=== PATIENT | male | born 1950 | race Caucasian/White ===

== ENCOUNTER 2019-07-30 15:53 | Observation (INO) | payer MEDICARE, MEDICAID, SELFPAY ==
--- NOTE | ~2019-07-30 | XR_ITS ---
XR chest 2V 07/30/2019 17:15 Indication: Cough. Possible pneumonia. Procedure: 2 view chest Comparison: Comparison to multiple prior studies sequentially, with oldest reviewed study dated 03/20. Findings: There is left lower lobe airspace disease. Cardiomegaly. Portacatheter tip in the SVC. Stat us post median sternotomy. Impression: 1: Left lower lobe airspace disease may represent atelectasis, pneumonia and/or scarring. Reviewed, dictated and finalized at location A. Impression: 1: Left lower lobe airspace disease may represent atelectasis, pneumonia and/or scarring.
--- NOTE | ~2019-07-30 | XR_ITS ---
XR chest 2V DATE: 08/02/2019 10:15 INDICATION: Pneumonia TECHNIQUE: AP and lateral views COMPARISON: 08/02/2019 2 view chest 07/30/2019 2 view chest FINDINGS: Status post sternotomy. Left Amina Cath tip overlies superior vena cava. Heart size is wi thin normal range. No pulmonary vascular congestion or pleural effusion or pneumothorax. There is m ild infiltrate, atelectasis and/or scarring at the lower lungs. Aortic calcification. Diffuse osteopenia. IMPRESSION: Mild infiltrate, atelectasis and/or scarring at both lower lung zones, not significantly changed since 07/30/2019 Reviewed, dictated and finalized at location B. IMPRESSION: Mild infiltrate, atelectasis and/or scarring at both lower lung zon es, not significantly changed since 07/30/2019
[2019-07-30 15:50] VITALS: PULSE 88; RESP 23; TEMP 36.3; O2SAT 98
--- NOTE | 2019-07-30 15:56 | ECG_ITS ---
Measurements Intervals [place] Rate: 88 P: MA: 0 QRS: 28 QRSD: 94 T: 35 QT: 337 QTc: 409 Interpretive Statements ATRIAL FLUTTER/TACHYCARDIA EARLY PRECORDIAL R/S TRANSITION ABNORMAL ECG Electronically Signed On 07-30-2019 17:25:14 CDT by Shubham Angelo D.O.
[2019-07-30 16:22] LABS: Hematocrit 30.9 % (42.0-52.0); Hemoglobin 10.3 g/dL (14.0-18.0); Mean Corpuscular HGB Conc 33.3 g/dl (32-36); Mean Corpuscular Hemoglobin 30.6 pg (26-34); Mean Corpuscular Volume 91.7 fl (80-100); Mean Platelet Volume 10.4 fl (7.4-10.4); Platelet Count Result 145 k/mm3 (150-375); Red Blood Count 3.37 M/mm3 (4.6-6.20); Red Cell Distribution Width 15.8 % (11.5-14.5); White Blood Count 4.2 K/mm3 (4.5-10.0)
[2019-07-30] MEDS: IPRATROPIUM BR 0.02% INH SOLN 0.5 MG/2.5 ML VIAL INHALATION (16:23)
[2019-07-30] MEDS: ALBUTEROL SULFATE NEB 2.5 MG/0.5 ML INH 5 MG INHALATION (16:23)
[2019-07-30 16:24] VITALS: PULSE 95; RESP 20
--- NOTE | 2019-07-30 16:28 | ED.SOB ---
HPI - SOB/Dyspnea General Chief Complaint: Shortness of Breath/Dyspnea Stated Complaint: sob/pneumonia Time Seen by Provider: 07/30/19 15:59 Source: patient Mode of arrival: EMS Limitations: no limitations History of Present Illness HPI Narrative: A 69 y/o male pt presents to the ED, via EMS from [facility], with c/o pneumonia that was found on a CXR that was done at his nursing facility last night. He states that one of his lab counts are low d/t his chemo tx but he is unsure which one. Pt notes having chest heaviness, cough, night sweats, and chills, but denies SOB, CP, fever, or N/V/D. He states that his cough began last week, but states that it is not worsening or improving. Pt notes having a hx of Bladder CA that he is currently receiving chemotherapy for and states that his oncologist is Dr. Renner. He reports last receiving chemotherapy on 07/27/2019. Pt notes being on anticoagulation therapy, but is unsure what he takes. elicited complaint: cough Onset (ago): week(s) (1) Context: other (CXR done last night at nursing facility shows pneumonia) Timing: other (not worsened or improved) Associated symptoms: cough and other (chest heaviness, night sweats, chills) Related Data Home Medications Medication Instructions Recorded Confirmed acetaminophen 650 mg PO Q6H PRN 07/30/19 albuterol sulfate 2.5 mg INHALATION Q4H PRN 07/30/19 albuterol sulfate [Ventolin HFA] INHALATION 07/30/19 alum-mag hydroxide-simeth [Maalox 10 ml PO QID PRN 07/30/19 Advanced] amitriptyline 50 mg PO DAILY 07/30/19 aspirin [Aspir-Low] 81 mg PO DAILY 07/30/19 atorvastatin 20 mg PO HS 07/30/19 benzonatate 100 mg PO TID PRN 07/30/19 budesonide-formoterol [Symbicort] 2 puff INHALATION Q12H 07/30/19 buspirone 5 mg PO TID 07/30/19 carvedilol 25 mg PO Q12H 07/30/19 cyclobenzaprine 10 mg PO TID PRN 07/30/19 duloxetine 60 mg PO DAILY 07/30/19 fentanyl 1 patch TRANSDERMAL Q72H 07/30/19 ferrous sulfate 325 mg PO EVERY OTHER DAY 07/30/19 furosemide 40 mg PO DAILY 07/30/19 xwcywkfduus-brdswxhxa-vcxzjjac 25 mcg INHALATION BID 07/30/19 [[place] Magnair Starter] hydrocodone-acetaminophen [[place]] 1 tablet PO Q6H PRN 07/30/19 isosorbide mononitrate 120 mg PO DAILY 07/30/19 levofloxacin 500 mg PO DAILY 07/30/19 loratadine mg 07/30/19 nitroglycerin 0.4 mg SUBLINGUAL ONCE 07/30/19 oxybutynin chloride 5 mg PO DAILY 07/30/19 pantoprazole 40 mg PO BID 07/30/19 polyethylene glycol 3350 17 g PO DAILY 07/30/19 pramipexole 0.5 mg PO HS 07/30/19 prazosin 5 mg PO HS 07/30/19 prochlorperazine maleate 10 mg PO Q6H PRN 07/30/19 [Compazine] ranolazine [Ranexa] 500 mg PO Q12H 07/30/19 rivaroxaban [Xarelto] 20 mg PO QPM 07/30/19 saxagliptin [Onglyza] 5 mg PO DAILY 07/30/19 sodium chloride-aloe vera [[place] 1 spray INTRANASAL Q1-2H PRN 07/30/19 Saline Gel] tuberculin PPD [Tubersol] 0.1 ml INTRADERMAL ONCE 07/30/19 Allergies Allergy/AdvReac Type Severity Reaction Status Date / Time No Known Allergies Allergy Verified 07/30/19 16:20 Review of Systems Review of Systems: All systems reviewed & are unremarkable except as noted in HPI and below Constitutional: Constitutional: Reports chills, Reports excessive sweating (at night) and Denies fever(s) Cardiovascular: Cardiovascular: Denies chest pain and Reports other (chest heaviness) Respiratory: Respiratory: Reports cough and Denies dyspnea Gastrointestinal: Gastrointestinal: Denies diarrhea, Denies nausea and Denies vomiting PMF Past Medical History Medical History Hernia History of atrial fibrillation Medical history unknown Surgical History Surgical History Hx of CABG Surgical history unknown Social History Social History Living arrangements: long term Exam Narrative: Exam Narrative: GENERAL: Chronically
[2019-07-30 16:31] VITALS: PULSE 92; RESP 20
[2019-07-30 16:33] LABS: Blood Urea Nitrogen 22 mg/dL (9-20); Calcium 8.8 mg/dL (8.4-10.2); Carbon Dioxide 28 mmol/L (22-30); Chloride 99 mmol/L (98-107); Estimated Glomerular Filt Rate 60; Glucose 110 mg/dL (75-110); Potassium 4.2 mmol/L (3.4-5.0); Sodium 137 mmol/L (137-145)
[2019-07-30 16:59] LABS: Lymphocytes Absolute Manual 0.12 K/mm3 (1.1-4.5); Monocytes Absolute Manual 0.08 K/mm3 (0.1-0.90); Monocytes Percent Manual 2 % (3-9); Neutrophils Percent Manual 95 % (46-73); Total Cells Counted 100
[2019-07-30 17:00] LABS: Tear Drop Cells 1+ (NORMAL)
[2019-07-30 17:45] VITALS: BP 143/83; PULSE 111; RESP 18; O2SAT 100
[2019-07-30] MEDS: ONDANSETRON INJ 4 MG/2 ML VIAL IV PUSH (18:19)
[2019-07-30 18:31] VITALS: BP 138/71; PULSE 74; RESP 18; O2SAT 100
--- NOTE | 2019-07-30 22:35 | PM.IMHP ---
H&P: HPI History of Present Illness Chief complaint: RESPIRATORY INFECTION Narrative: This is a 69 year old male with a history of bladder cancer currently receiving chemotherapy and atrial fibrillation on Xarelto who presented from [facility] secondary to coughing for the past 3 days. The patient's PCP at the [facility] referred home to the hospital to be admitted for possible pneumonia. The patient reports a productive cough of greenish yellow sputum for the past 3 days with associated generalized weakness. He denies any significant shortness of breath, wheezing or fevers, nausea, vomiting, diarrhea, dysuria, hematuria, lower extremity swelling or rectal bleeding. The patient was evaluated in the ER tonight and found to have left lower airspace disease on CXR. ER provider attempted to send the patient back to [facility] but tells me that the PCP there refused to accept the patient as they wanted the patient to be admitted to the hospital for treatment. We have been asked to admit the patient to the hospital for further care. He has no other complaints. Review of Systems Review of Systems: All systems reviewed & are unremarkable except as noted in HPI and below PMFSH Past Medical History Medical History (Updated 07/31/19 @ 06:03 by Dmitry Dickson MD) GERD (gastroesophageal reflux disease) Hernia History of atrial fibrillation Hyperlipidemia Medical history unknown Surgical History Surgical History Hx of CABG Surgical history unknown Social History Social History Years smoked: 60 Smoking status: Current some day smoker Tobacco type: cigarettes Alcohol intake: former Substance use: never Living arrangements: [facility] Gender identity (if verbalized by the patient): Male Spiritual care concerns: No Agree to blood products: Yes Comments Family medical history is reviewed and noncontributory. Meds Home Medications and Allergies Home Medications Medication Instructions Recorded Confirmed Type acetaminophen 650 mg PO Q6H PRN 07/30/19 07/31/19 History albuterol sulfate 2.5 mg INHALATION Q4H PRN 07/30/19 07/31/19 History albuterol sulfate [Ventolin HFA] 2 puff INHALATION Q4H PRN 07/30/19 07/31/19 History alum-mag hydroxide-simeth [Maalox 10 ml PO QID PRN 07/30/19 07/31/19 History Advanced] amitriptyline 50 mg PO HS 07/30/19 07/31/19 History aspirin [Aspir-Low] 81 mg PO DAILY 07/30/19 07/31/19 History atorvastatin 20 mg PO HS 07/30/19 07/31/19 History benzonatate 100 mg PO TID PRN 07/30/19 07/31/19 History budesonide-formoterol [Symbicort] 2 puff INHALATION Q12H 07/30/19 07/31/19 History buspirone 5 mg PO TID 07/30/19 07/31/19 History carvedilol 25 mg PO Q12H 07/30/19 07/31/19 History cyclobenzaprine 10 mg PO TID PRN 07/30/19 07/31/19 History duloxetine 60 mg PO DAILY 07/30/19 07/31/19 History fentanyl 1 patch TRANSDERMAL Q72H 07/30/19 07/31/19 History ferrous sulfate 325 mg PO USEASDIRECTD 07/30/19 07/31/19 History furosemide 40 mg PO DAILY 07/30/19 07/31/19 History pmjohrjnwdd-lomwjotsa-iuszsmvi 25 mcg INHALATION Q12H 07/30/19 07/31/19 History [Enma Orosco Starter] hydrocodone-acetaminophen [[place]] 1 tablet PO Q6H PRN 07/30/19 07/31/19 History isosorbide mononitrate 120 mg PO HS 07/30/19 07/31/19 History levofloxacin 500 mg PO DAILY 07/30/19 07/31/19 History loratadine 10 mg PO DAILY 07/30/19 07/31/19 History nitroglycerin 0.4 mg SUBLINGUAL USEASDIRECTD PRN 07/30/19 07/31/19 History pantoprazole 40 mg PO BID 07/30/19 07/31/19 History polyethylene glycol 3350 17 g PO DAILY 07/30/19 07/31/19 History pramipexole 0.5 mg PO HS 07/30/19 07/31/19 History prazosin 5 mg PO HS 07/30/19 07/31/19 History prochlorperazine maleate 10 mg PO Q6H PRN 07/30/19 07/31/19 History [Compazine] ranolazine [Ranexa] 500 mg PO Q12H 07/30/19 07/31/19 History rivaroxaban [Xarelto] 2
[2019-07-30] MEDS: levoFLOXacin 500 MG/D5W 100 ML 500 MG/100 ML BAG 100 MG IVPB (23:10)
[2019-07-30 23:33] VITALS: BP 130/78; PULSE 88; RESP 20; TEMP 36.6; O2SAT 100
--- NOTE | 2019-07-30 23:55 | ADMGEN ---
This patient, Jaskaran Andrews, was admitted to Medical Room 347-. Patient/family oriented to hospital policies and general routines including ID bracelet, bed and alarms, visiting hours, pain management, procedures, bathroom and other care routines, personal items, smoking policy, room service/diet, and visiting hours. Valuables list has been completed. Information on how to activate the Rapid Response Team has been discussed. Patient/Family are encouraged to report perceived risks to care and to ask questions if they do not understand what they are told or what they should do.
[2019-07-31] VITALS (12 sets, daily range): BP systolic 108–114; BP diastolic 60–65; PULSE 66–93; RESP 16–20; TEMP 36–36.5; O2SAT 94–100; BMI 32.3
[2019-07-31] MEDS: SODIUM CHLORIDE 0.9% IV 1,000 ML 100 ML IV CONT ×3 (00:07→22:10)
--- NOTE | 2019-07-31 03:19 | PCRCNOTE ---
pt not there at time of tx
[2019-07-31 03:30] LABS: Blood Urea Nitrogen 23 mg/dL (9-20); Calcium 8.4 mg/dL (8.4-10.2); Carbon Dioxide 30 mmol/L (22-30); Chloride 101 mmol/L (98-107); Estimated CRCL calculation 64 ml/min; Estimated Glomerular Filt Rate > 60; Glucose 139 mg/dL (75-110); Magnesium 1.9 mg/dL (1.6-2.3); Potassium 3.9 mmol/L (3.4-5.0); Sodium 137 mmol/L (137-145)
[2019-07-31 03:32] LABS: Hemoglobin 10.3 g/dL (14.0-18.0); Immature Granulocyte Absolute 0.09 K/mm3 (0.00-0.031); Immature Granulocyte Percent A 2.7 % (0-0.5); Lymphocytes Absolute Auto 0.16 K/mm3 (0.9-3.2); Lymphocytes Percent Auto 4.7 % (18.3-44.2); Mean Corpuscular HGB Conc 33.2 g/dl (32-36); Mean Corpuscular Hemoglobin 31.1 pg (26-34); Mean Corpuscular Volume 93.7 fl (80-100); Mean Platelet Volume 10.8 fl (7.4-10.4); Monocytes Absolute Auto 0.2 K/mm3 (0.1-0.6); Neutrophils Percent Auto 87.6 % (45.5-73.1); Platelet Count Result 135 k/mm3 (150-375); Red Blood Count 3.31 M/mm3 (4.6-6.20); Red Cell Distribution Width 15.6 % (11.5-14.5); White Blood Count 3.4 K/mm3 (4.5-10.0)
[2019-07-31] MEDS: CYCLOBENZAPRINE HCL 10 MG TABLET PO ×2 (06:13→22:04)
[2019-07-31] MEDS: LORATADINE 10 MG TABLET PO (09:36)
[2019-07-31] MEDS: PANTOPRAZOLE 40 MG TABLET PO ×2 (09:36→16:47)
[2019-07-31] MEDS: RANOLAZINE 500 MG TAB.ER.12H PO ×2 (09:36→22:04)
[2019-07-31] MEDS: DULOXETINE 60 MG CAPSULE.DR PO (09:37)
[2019-07-31] MEDS: ASPIRIN 81 MG ENTERIC TABLET PO (09:37)
[2019-07-31] MEDS: busPIRone HCL 5 MG TABLET PO ×3 (09:37→16:46)
[2019-07-31] MEDS: carvediloL 25 MG TABLET PO ×2 (09:37→22:05)
[2019-07-31] MEDS: FUROSEMIDE 40 MG TABLET PO (09:37)
[2019-07-31] MEDS: FENTANYL 25 MCG/HR PATCH TRANSDERM (09:38)
[2019-07-31] MEDS: polyethylene glycoL 3350 17 GM POWD.PACK PO (09:42)
[2019-07-31] MEDS: ALBUTEROL SULFATE NEB 2.5 MG/0.5 ML INH 5 MG INHALATION ×3 (10:00→19:54)
--- NOTE | 2019-07-31 14:19 | PM.IMPN ---
Progress Note: A&P Assessment and Plan (1) Acute respiratory infection: Code(s): J22 - Unspecified acute lower respiratory infection Status: Acute Assessment and Plan: Mild CAP, continue oral ABX and breathing treatment, hopeful discharge Friday, sputum and blood culture are pending (2) Normocytic anemia: Code(s): D64.9 - Anemia, unspecified Status: Acute Assessment and Plan: Likely anemia of chronic disease. Monitor H/H (3) History of atrial fibrillation: Code(s): Z86.79 - Personal history of other diseases of the circulatory system Status: Chronic Assessment and Plan: Continue Coreg and Xarelto. (4) GERD (gastroesophageal reflux disease): Code(s): K21.9 - Gastro-esophageal reflux disease without esophagitis Status: Chronic Assessment and Plan: Continue PPI therapy. (5) Hyperlipidemia: Code(s): E78.5 - Hyperlipidemia, unspecified Status: Chronic Assessment and Plan: Continue atorvastatin. Subjective Date/time seen: 07/31/19 14:19 Interval history: 69 year old male with a history of bladder cancer currently receiving chemotherapy and atrial fibrillation on Xarelto who presented from [facility] secondary to coughing for the past 3 days. Admitted for pneumonia as per CXR. Admitted last night, continue care. Review of Systems Respiratory: Respiratory: Reports chest congestion, Reports cough, Reports dyspnea and Reports wheezing Exam Const: General: cooperative and no acute distress Nutritional Appearance: well nourished Neck: Neck: normal visual inspection, no lymphadenopathy, supple, negative Brudzinski's sign and no JVD Chest: Chest palpation & inspection: normal inspection of the chest Resp: Effort & Inspection: normal respiratory effort Auscultation: diminished lung sounds Percussion: percussion normal Cardio: Jugular venous distension: no JVD Rate: regular rate Rhythm: regular rhythm Heart sounds: S1 normal heart sound present and S2 normal heart sound present Extrem: Right lower extremity: normal to inspection Left lower extremity: normal to inspection Psych: Appearance: grossly normal Mental Status: mental status grossly normal Affect: normal affect Attitude: cooperative Objective Data Vital Signs Vital Signs: Vital Signs - 24 hr 07/30/19 15:50 07/30/19 16:24 07/30/19 16:31 Temperature 36.3 C L Pulse Rate 88 95 92 Respiratory Rate 23 H 20 20 Blood Pressure Pulse Oximetry 98 07/30/19 17:45 07/30/19 18:31 07/30/19 23:33 Temperature 36.6 C Pulse Rate 111 H 74 88 Respiratory Rate 18 18 20 Blood Pressure 143/83 H 138/71 130/78 Pulse Oximetry 100 100 100 07/31/19 00:07 07/31/19 05:33 07/31/19 09:37 Temperature 36.1 C L 36.3 C L Pulse Rate 66 73 73 Respiratory Rate 18 18 Blood Pressure 114/61 108/63 Pulse Oximetry 100 96 07/31/19 10:03 07/31/19 10:10 07/31/19 13:57 Temperature 36.0 C L Pulse Rate 93 87 72 Respiratory Rate 18 18 16 Blood Pressure 113/60 Pulse Oximetry 96 94 Intake/Output Intake/Output: Intake & Output 07/28/19 07/29/19 07/30/19 07/31/19 23:59 23:59 23:59 23:59 Intake Total 2210 Output Total 950 Balance 1260 Meds/Results Medications: Active Medications Generic Name Dose Route Start Last Admin Trade Name Freq PRN Reason Stop Dose Admin Acetaminophen 650 mg 07/30/19 22:24 Tylenol Tablet PO Q4H PRN Mild Pain (1-3) or Fever Hydrocodone Bitart/Acetaminophen 1 tab 07/30/19 22:24 [place] 5-325 Mg PO Q4H PRN Pain Rated 4-6 Hydrocodone Bitart/Acetaminophen 1 tab 07/31/19 03:12 07/31/19 09:44 [place] 5-325 Mg PO 1 tab Q6H PRN Administration Pain Al Hydrox/Mg Hydrox/Simethicone 10 ml 07/31/19 03:12 Mylanta PO QID PRN Indigestion Albuterol 5 mg 07/31/19 02:00 07/31/19 10:00 Albuterol Sulf Neb 2.5mg/0.5ml INHALATION 5 mg Q6H
[2019-07-31] MEDS: AMITRIPTYLINE HCL 25 MG TABLET 50 MG PO (22:04)
[2019-07-31] MEDS: RIVAROXABAN 20 MG TABLET PO (22:04)
[2019-07-31] MEDS: PRAZOSIN HCL 5 MG CAPSULE PO (22:04)
[2019-07-31] MEDS: ATORVASTATIN 20 MG TABLET PO (22:04)
[2019-07-31] MEDS: ISOSORBIDE MONONITRATE 60 MG TAB.ER.24H 120 MG PO (22:05)
[2019-07-31] MEDS: PRAMIPEXOLE 0.5 MG TABLET PO (22:05)
[2019-08-01] VITALS (15 sets, daily range): BP systolic 120–145; BP diastolic 62–72; PULSE 61–126; RESP 18–20; TEMP 36.1–36.4; O2SAT 95–97
[2019-08-01] MEDS: ALBUTEROL SULFATE NEB 2.5 MG/0.5 ML INH 5 MG INHALATION ×4 (01:11→20:54)
[2019-08-01 06:06] LABS: Hematocrit 29.6 % (42.0-52.0); Hemoglobin 9.5 g/dL (14.0-18.0); Mean Corpuscular HGB Conc 32.1 g/dl (32-36); Mean Corpuscular Hemoglobin 30.7 pg (26-34); Mean Corpuscular Volume 95.8 fl (80-100); Mean Platelet Volume 10.8 fl (7.4-10.4); Platelet Count Result 115 k/mm3 (150-375); Red Blood Count 3.09 M/mm3 (4.6-6.20); Red Cell Distribution Width 15.9 % (11.5-14.5); White Blood Count 3.4 K/mm3 (4.5-10.0)
[2019-08-01 06:26] LABS: Blood Urea Nitrogen 22 mg/dL (9-20); Calcium 8.1 mg/dL (8.4-10.2); Carbon Dioxide 32 mmol/L (22-30); Chloride 103 mmol/L (98-107); Estimated CRCL calculation 64 ml/min; Estimated Glomerular Filt Rate > 60; Glucose 98 mg/dL (75-110); Potassium 4.5 mmol/L (3.4-5.0); Sodium 136 mmol/L (137-145)
[2019-08-01] MEDS: FERROUS SULFATE 324 MG TABLET PO (08:59)
[2019-08-01] MEDS: PANTOPRAZOLE 40 MG TABLET PO ×2 (08:59→17:35)
[2019-08-01] MEDS: polyethylene glycoL 3350 17 GM POWD.PACK PO (09:00)
[2019-08-01] MEDS: busPIRone HCL 5 MG TABLET PO ×3 (09:00→17:35)
[2019-08-01] MEDS: carvediloL 25 MG TABLET PO ×2 (09:01→20:41)
[2019-08-01] MEDS: DULOXETINE 60 MG CAPSULE.DR PO (09:01)
[2019-08-01] MEDS: ASPIRIN 81 MG ENTERIC TABLET PO (09:01)
[2019-08-01] MEDS: RANOLAZINE 500 MG TAB.ER.12H PO ×2 (09:01→20:41)
[2019-08-01] MEDS: LORATADINE 10 MG TABLET PO (09:01)
[2019-08-01] MEDS: FUROSEMIDE 40 MG TABLET PO (09:02)
[2019-08-01] MEDS: SODIUM CHLORIDE 0.9% IV 1,000 ML 100 ML IV CONT ×2 (11:14→20:48)
--- NOTE | 2019-08-01 15:54 | PM.IMPN ---
Progress Note: A&P Assessment and Plan (1) Acute respiratory infection: Code(s): J22 - Unspecified acute lower respiratory infection Status: Acute Assessment and Plan: Mild CAP, continue oral ABX and breathing treatment, hopeful discharge Friday, sputum and blood culture are pending 69 year old male with a history of bladder cancer currently receiving chemotherapy and atrial fibrillation on Xarelto who presented from [facility] secondary to coughing for the past 3 days. Admitted for pneumonia as per CXR. 07/29, today patient is little better cough not as persistent denies any fever or chills, will repeat chest x-ray tomorrow and further recommendation to follow (2) Normocytic anemia: Code(s): D64.9 - Anemia, unspecified Status: Acute Assessment and Plan: Likely anemia of chronic disease. Monitor H/H (3) History of atrial fibrillation: Code(s): Z86.79 - Personal history of other diseases of the circulatory system Status: Chronic Assessment and Plan: Continue Coreg and Xarelto. (4) GERD (gastroesophageal reflux disease): Code(s): K21.9 - Gastro-esophageal reflux disease without esophagitis Status: Chronic Assessment and Plan: Continue PPI therapy. (5) Hyperlipidemia: Code(s): E78.5 - Hyperlipidemia, unspecified Status: Chronic Assessment and Plan: Continue atorvastatin. Time Spent With Patient Time with patient: 15 - 25 minutes Subjective Date/time seen: 08/01/19 15:54 Interval history: 69 year old male with a history of bladder cancer currently receiving chemotherapy and atrial fibrillation on Xarelto who presented from [facility] secondary to coughing for the past 3 days. Admitted for pneumonia as per CXR. 07/29, today patient is little better cough not as persistent denies any fever or chills Review of Systems Review of Systems: All systems reviewed & are unremarkable except as noted in HPI and below Exam Narrative: Exam Narrative: Moderately obese Const: General: cooperative, comfortable and no acute distress Nutritional Appearance: well nourished HENMT: Head: normal to inspection and other (Tongue normal - no lacerations) Mouth: Yes Normal oral and palatal mucosa present Eyes: General: appearance normal, both eyes and all related structures Sclera: sclerae normal Neck: Neck: normal visual inspection, no lymphadenopathy, supple and negative Brudzinski's sign Chest: Chest palpation & inspection: normal inspection of the chest Resp: Percussion: percussion normal Other: Bilateral poor entry with rhonchi Cardio: Jugular venous distension: no JVD Rate: regular rate Rhythm: regular rhythm Heart sounds: S1 normal heart sound present and S2 normal heart sound present GI: Inspection: normal to inspection Auscultation: normal bowel sounds Neuro: Speech: normal speech Motor exam (neuro): No tremor noted and No asterixis Sensory Exam: normal sensation; No Sensory deficit (Neuro) Deep tendon reflexes (DTR's): Right brachioradialis reflex intensity grade: 2+, Left brachioradialis reflex intensity grade: 2+, Right patellar reflex intensity grade: 2+ and Left patellar reflex intensity grade: 2+ Extrem: Right lower extremity: normal to inspection Left lower extremity: normal to inspection Psych: Appearance: grossly normal Mental Status: mental status grossly normal Affect: normal affect Attitude: cooperative Objective Data Vital Signs Vital Signs: Vital Signs - 24 hr 07/31/19 16:03 07/31/19 16:07 07/31/19 19:55 Temperature Pulse Rate 73 70 67 Respiratory Rate 20 20 18 Blood Pressure Pulse Oximetry 07/31/19 20:07 07/31/19 21:50 07/31/19 22:05 Temperature 97.7 F Pulse Rate 77 74 74 Respiratory Rate 18 16 Blood Pressure 114/65 Pulse Oximetry 94 08/01/19 01:11 08/01/19 01:20 08/01/19 05:38 Temperature 97.6 F Pulse Rate 61 71 62 Re
[2019-08-01] MEDS: CYCLOBENZAPRINE HCL 10 MG TABLET PO ×2 (17:35→20:45)
[2019-08-01] MEDS: AMITRIPTYLINE HCL 25 MG TABLET 50 MG PO (20:41)
[2019-08-01] MEDS: RIVAROXABAN 20 MG TABLET PO (20:41)
[2019-08-01] MEDS: ATORVASTATIN 20 MG TABLET PO (20:41)
[2019-08-01] MEDS: PRAMIPEXOLE 0.5 MG TABLET PO (20:41)
[2019-08-01] MEDS: PRAZOSIN HCL 5 MG CAPSULE PO (20:41)
[2019-08-01] MEDS: ISOSORBIDE MONONITRATE 60 MG TAB.ER.24H 120 MG PO (20:42)
[2019-08-02] VITALS (7 sets, daily range): BP systolic 125; BP diastolic 69; PULSE 80–104; RESP 18; TEMP 36.1; O2SAT 94–97
[2019-08-02] MEDS: ALBUTEROL SULFATE NEB 2.5 MG/0.5 ML INH 5 MG INHALATION ×2 (02:03→08:04)
[2019-08-02] MEDS: SODIUM CHLORIDE 0.9% IV 1,000 ML 100 ML IV CONT (07:17)
[2019-08-02] MEDS: polyethylene glycoL 3350 17 GM POWD.PACK PO (08:42)
[2019-08-02] MEDS: busPIRone HCL 5 MG TABLET PO ×2 (08:42→12:06)
[2019-08-02] MEDS: RANOLAZINE 500 MG TAB.ER.12H PO (08:42)
[2019-08-02] MEDS: PANTOPRAZOLE 40 MG TABLET PO (08:42)
[2019-08-02] MEDS: ASPIRIN 81 MG ENTERIC TABLET PO (08:42)
[2019-08-02] MEDS: LORATADINE 10 MG TABLET PO (08:42)
[2019-08-02] MEDS: carvediloL 25 MG TABLET PO (08:43)
[2019-08-02] MEDS: DULOXETINE 60 MG CAPSULE.DR PO (08:43)
[2019-08-02] MEDS: FUROSEMIDE 40 MG TABLET PO (08:43)
[2019-08-02] MEDS: CYCLOBENZAPRINE HCL 10 MG TABLET PO (08:47)
[2019-08-02 10:43] LABS: Hematocrit 29.2 % (42.0-52.0); Hemoglobin 9.7 g/dL (14.0-18.0); Mean Corpuscular HGB Conc 33.2 g/dl (32-36); Mean Corpuscular Hemoglobin 31.2 pg (26-34); Mean Corpuscular Volume 93.9 fl (80-100); Mean Platelet Volume 10.9 fl (7.4-10.4); Platelet Count Result 113 k/mm3 (150-375); Red Blood Count 3.11 M/mm3 (4.6-6.20); Red Cell Distribution Width 15.6 % (11.5-14.5); White Blood Count 2.8 K/mm3 (4.5-10.0)
[2019-08-02 10:56] LABS: Magnesium 1.7 mg/dL (1.6-2.3)
[2019-08-02 10:58] LABS: Blood Urea Nitrogen 19 mg/dL (9-20); Calcium 8.4 mg/dL (8.4-10.2); Carbon Dioxide 28 mmol/L (22-30); Chloride 101 mmol/L (98-107); Estimated CRCL calculation 70 ml/min; Estimated Glomerular Filt Rate > 60; Glucose 130 mg/dL (75-110); Potassium 4.4 mmol/L (3.4-5.0); Sodium 135 mmol/L (137-145)
--- NOTE | 2019-08-02 12:25 | PM.DS ---
DS: Diagnosis Admitting Diagnosis Admitting Diagnosis: Unspecified acute lower respiratory infection Discharge Diagnosis (1) Acute respiratory infection: Code(s): J22 - Unspecified acute lower respiratory infection Status: Acute Assessment and Plan: Mild CAP, continue oral ABX and breathing treatment, hopeful discharge Friday, sputum and blood culture are pending 69 year old male with a history of bladder cancer currently receiving chemotherapy and atrial fibrillation on Xarelto who presented from [facility] secondary to coughing for the past 3 days. Admitted for pneumonia as per CXR. 07/29, today patient is little better cough not as persistent denies any fever or chills, will repeat chest x-ray tomorrow and further recommendation to follow (2) Normocytic anemia: Code(s): D64.9 - Anemia, unspecified Status: Acute Assessment and Plan: Likely anemia of chronic disease. Monitor H/H (3) History of atrial fibrillation: Code(s): Z86.79 - Personal history of other diseases of the circulatory system Status: Chronic Assessment and Plan: Continue Coreg and Xarelto. (4) GERD (gastroesophageal reflux disease): Code(s): K21.9 - Gastro-esophageal reflux disease without esophagitis Status: Chronic Assessment and Plan: Continue PPI therapy. (5) Hyperlipidemia: Code(s): E78.5 - Hyperlipidemia, unspecified Status: Chronic Assessment and Plan: Continue atorvastatin. DS: Summary Hospital Course Reason for hospitalization: This is a 69 year old male with a history of bladder cancer currently receiving chemotherapy and atrial fibrillation on Xarelto who presented from [facility] secondary to coughing for the past 3 days. [facility] to the hospital to be admitted for possible pneumonia. The patient reports a productive cough of greenish yellow sputum for the past 3 days with associated generalized weakness. He denies any significant shortness of breath, wheezing or fevers, nausea, vomiting, diarrhea, dysuria, hematuria, lower extremity swelling or rectal bleeding. The patient was evaluated in the ER tonight and found to have left lower airspace disease on CXR. ER provider attempted to send the patient back to [facility] but tells me that the PCP there refused to accept the patient as they wanted the patient to be admitted to the hospital for treatment. We have been asked to admit the patient to the hospital for further care. He has no other complaints. R Hospital Course: Mild CAP, continue oral ABX and breathing treatment, hopeful discharge Friday, sputum and blood culture are pending 69 year old male with a history of bladder cancer currently receiving chemotherapy and atrial fibrillation on Xarelto who presented from [facility] secondary to coughing for the past 3 days. Admitted for pneumonia as per CXR. 07/29, today patient is little better cough not as persistent denies any fever or chills, will repeat chest x-ray tomorrow and further recommendation to follow, patient chest xray is stable, he clinically stable, will discharge patient today. Status at Discharge Functional status at discharge: uses cane/walker Overall status at discharge: patient is back to baseline Time Spent with Patient Time attestation: Total time spent providing and/or coordinating discharge services: Patient was seen and examined at the time of the discharge Condition at discharge is stable Code status: Full code. Time spent preparing discharge summary, discharge medications, discussing discharge planning with spring encaser and patient is 35 minutes. Time spent: Greater than 30 minutes Exam Const: General: comfortable and no acute distress HENMT: General nose exam: Normal nares present Mouth: Yes moist mucous membranes Eyes: General: appearance normal, both ey
--- NOTE | 2019-08-02 18:36 | CONS_ITS ---
DATE OF CONSULTATION: 08/02/2019 REASON FOR CONSULTATION: Locally advanced urothelial carcinoma. 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 He subsequently diagnosed with metastatic disease with evidence of pulmonary metastasis and left rectus sheath metastasis. He is currently on chemotherapy with Taxol and radiation therapy treatment. He has 1 more treatment with Taxol left. His last chemotherapy was on July 28. He came into the hospital with complaint of productive cough with yellowish greenish sputum for the last 3 days duration along with generalized weakness. He denies any significant shortness of breath, fevers, or chills. Chest x-ray was performed that showed left lower lobe airspace opacities. I discussed this case with the patient's primary care physician and decided to admit the patient given the fact that he has immunocompromised status due to ongoing chemotherapy and will better be treated as an outpatient. REVIEW OF SYSTEMS: A 12-point review of system was reviewed and as per HPI, otherwise negative. PAST MEDICAL HISTORY: Metastatic high-grade urothelial carcinoma, GERD, hernia, atrial fibrillation, and hyperlipidemia. PAST SURGICAL HISTORY: Coronary artery bypass grafting. SOCIAL HISTORY: History of smoking and continues to smoke. The patient lives in [facility]. HOME MEDICATIONS: Reviewed. ALLERGIES: REVIEWED. PHYSICAL EXAMINATION: GENERAL: This patient is a well-developed, well-nourished, elderly male, in no apparent distress. Alert and oriented. VITAL SIGNS: Per nursing note. HEENT: Normocephalic, atraumatic. Clear oropharynx. LUNGS: Clear to auscultation bilaterally. CARDIOVASCULAR: Regular rate and rhythm. No murmur. ABDOMEN: Soft, nontender, nondistended. Bowel sounds are positive in all 4 quadrants. No hepatosplenomegaly. EXTREMITIES: No edema. NEURO EXAM: Grossly intact. LABORATORY DATA: WBC 2.8, hemoglobin 9.7, platelet 113,000. ASSESSMENT AND PLAN: 1. Left lower lobe pneumonia. The patient is already feeling better after receiving IV antibiotic treatment. He is breathing better and he remains afebrile. He will be discharged home on Levaquin as an outpatient. 2. Metastatic high-grade urothelial carcinoma. The patient is on radiation therapy and weekly chemotherapy treatment. He has 1 more chemotherapy with Taxol left that he will receive after recovery from this acute infection. The patient has appointment with me to see as an outpatient for continuation of chemotherapy. 3. Pancytopenia. This is secondary to chemotherapy. He does not need any blood products at this time. He does not need any growth factor. He is afebrile. 4. Atrial fibrillation. The patient can continue Xarelto. He has no bleeding. Nosebleed has stopped. I have answered all the questions to the patient's satisfaction. NANCY Karly BARTON M.D. SORTING MACHINE OPERATOR SORTING MACHINE OPERATOR D I MT: Earl
[2019-08-03 15:58] LABS: Legionella pneumophila Ag Ur Not Detected (Not Detected)
[2019-08-04 00:17] LABS: Pneumococcal Antigen Urine Not Detected (Not Detected)
== END 2019-08-02 13:40 ==
LOC: ANHED 20:39 → ANH3MED 22:53
PROVIDERS: Family Medicine; Admitting Provider Family Medicine; Emergency Provider Emergency Medicine; Visit Provider Family Medicine
DX: J18.9 Pneumonia, unspecified organism (principal); I48.91 Unspecified atrial fibrillation; K21.9 Gastro-esophageal reflux disease without esophagitis; E78.5 Hyperlipidemia, unspecified; F17.210 Nicotine dependence, cigarettes, uncomplicated; D61.810 Antineoplastic chemotherapy induced pancytopenia; T45.1X5A Adverse effect of antineoplastic and immunosuppressive drugs, initial encounter; C66.9 Malignant neoplasm of unspecified ureter; C78.00 Secondary malignant neoplasm of unspecified lung; C79.89 Secondary malignant neoplasm of other specified sites; Z79.01 Long term (current) use of anticoagulants; Z79.82 Long term (current) use of aspirin; Z79.899 Other long term (current) drug therapy
CPT/HCPCS: 36415; 71046; 80048; 83735; 85025; 85027; 87040; 87070; 87081; 87205; 87449; 87804; 87899; 93005; 94640; 96361; 96365; 96375; 97110; 97161; 97165; 97535; 99285; A9270; G0378; J1956; J2405; J7030

== ENCOUNTER 2019-09-28 10:49 | Outpatient (CLI) | payer MEDICARE, MEDICAID, SELFPAY ==
--- NOTE | ~2019-09-28 | PE_ITS ---
EXAMINATION: PET skull to mid thigh DATE: 09/28/2019 13:14 INDICATION: Malignant neoplasm of the right ureter TECHNIQUE: Blood glucose level was 113 mg/dL. 8.970 mCi of 18-fluorodeoxyglucose (18-FDG) was adminis tered i.v. Low dose computed tomography (CT) images were acquired from the base of the brain to the p roximal thighs for attenuation correction and anatomic localization. Positron emission tomography (PE T) images were acquired in the same distribution beginning 72 minutes after injection. The dose-lengt h product (DLP) was 1143.76 mGy-cm. COMPARISON: 04/20/2019 FINDINGS: Head/neck: FDG uptake in the oral cavity without suspicious CT correlate is likely physiologic. Chest: There is moderate emphysema. Previously described airspace and groundglass opacities of the ri ght lower lobe have decreased. No pathologically enlarged thoracic lymph nodes are identified. There is left atrial enlargement of the heart. There is no pleural effusion or pneumothorax. Again noted is a right posterior diaphragmatic hernia containing fat. There are changes of coronary artery bypass g rafting. A left subclavian Port-A-Cath ends with its tip in the distal superior vena cava. Abdomen/pelvis/proximal thighs: Physiologic FDG activity is present in the bowel. The gallbladder is surgically absent. There are also changes of right nephrectomy and right ureterectomy. The liver, spl een, pancreas, and adrenal glands are normal. Again noted is a ventral hernia containing nonobstructe d small bowel just below the level of hernia repair mesh. Diffuse bladder wall thickening is present. There is persistent abnormal thickening at the area of the distal right ureteral stone.. In addition , there appears to be a focal area of bladder wall thickening involving the left lateral bladder wall . Mild thickening of the mid to distal left ureter is also noted. A moderate volume of colonic stool is present. There is no free intraperitoneal gas or evidence of bowel obstruction. Musculoskeletal: There is is persistent increased muscular activity in the left inguinal region witho ut suspicious CT correlate. Increased FDG uptake in the paraspinal muscles of the upper cervical spin e without suspicious CT correlate is likely physiologic. IMPRESSION: 1. Persistent soft tissue density in the area of the distal right ureteral stump with possible new fo jeff area of wall thickening involving the left bladder wall and possible thickening of the left mid t o distal ureter. Direct visualization is recommended. 2. Improving airspace opacities of the right lower lobe, consistent with resolving infection/inflamma tion. Reviewed, dictated and finalized at location A. IMPRESSION: 1. Persistent soft tissue density in the area of the distal right ureteral stum p with possible new focal area of wall thickening involving the left bladder wa ll and possible thickening of the left mid to distal ureter. Direct visualizati on is recommended. 2. Improving airspace opacities of the right lower lobe, consistent with resolv ing infection/inflammation.
[2019-09-28 11:15] LABS: Glucose Point of Care 113 (65-105)
== END 2019-09-28 10:50 | disposition home or self-care (01) ==
LOC: ANHIMG 10:57
PROVIDERS: PCP Internal Medicine; Visit Provider Radiology Radiation Oncology
DX: C66.1 Malignant neoplasm of right ureter (principal); R91.8 Other nonspecific abnormal finding of lung field
CPT/HCPCS: 78815; A9552

== ENCOUNTER 2019-11-14 05:30 | Inpatient (IN) | payer MEDICARE, MEDICAID, SELFPAY ==
[2019-11-14] VITALS (19 sets, daily range): BP systolic 87–118; BP diastolic 53–80; PULSE 89–130; RESP 12–24; TEMP 35.7–36.3; O2SAT 93–98; BMI 32.0
--- NOTE | ~2019-11-14 | CT_ITS ---
EXAMINATION: CT abdomen pelvis wo con EXAM DATE: 11/14/2019 06:29 INDICATION: Hematuria. TECHNIQUE: Spiral CT of the abdomen and pelvis was performed without contrast. Axial, coronal and s agittal images were reviewed. The dose-length product (DLP) for this examination was 1093.81 mGy-cm. The exposure was tailored according to patient size (auto mA exposure control), and iterative recon struction (ASIR) was used as additional dose reduction technique. Correlation is made to head CT from 09/28/2019. FINDINGS: The liver, spleen, adrenal glands and pancreas are unremarkable. Gallbladder not identifie d, patient likely has had cholecystectomy. Status post right-sided nephrectomy. The prostate is unr emarkable. Calcified vasa deferentia may indicate patient has diabetes. Small right inguinal fat-cont aining hernia. The bladder is collapsed with Koo catheter balloon anchor inside. There is diffuse bladder wall thickening and mild adjacent inflammation. This was present on last month CT. There is no retroperitoneal or pelvic lymphadenopathy. There is extensive scattered arterial sclerotic disea se. No small bowel there is periumbilical hernia containing nonobstructed small bowel. Above this her reece there is abdominal wall mesh. The appendix is normal. The stomach and small bowel are unremarkable. There is expected amount of c olonic stool. No free intraperitoneal gas. The heart is normal in size. There are no pericardial or pleural effusions. There is 14 mm irregular nodule at the right lung base with small cystic comp onent appears unchanged, and a 16 mm right lower lobe nodule, could be resolving post infectious resi ricardo but can't exclude malignancy. Please correlate with prior PET/CT report. There is moderate emphys lois. Moderate-sized right-sided [place] fat-containing hernia. There are no osteoblastic or osteol ytic lesions identified. Probable old right-sided rib fractures. IMPRESSION: 1. Stable surgical changes. 2. Persistent bladder wall inflammation. Koo catheter in position. 3. Right lower lobe spiculated nodular regions could be postinfectious. 3 month follow-up low-dose c hest CT indicated to exclude cancer. 4. Other chronic findings. Reviewed, dictated and finalized at location A. IMPRESSION: 1. Stable surgical changes. 2. Persistent bladder wall inflammation. Koo catheter in position. 3. Right lower lobe spiculated nodular regions could be postinfectious. 3 harish h follow-up low-dose chest CT indicated to exclude cancer. 4. Other chronic findings.
--- NOTE | 2019-11-14 05:56 | ED.GENADULT ---
HPI - General Adult General Chief complaint: Urogenital-Male Stated complaint: Gi bleed Source: RN notes reviewed History of Present Illness HPI narrative: Patient presents emergency department from home for hematuria. Patient states he has had blood in his urine for the past 4 days it worsened this evening. States he has a history of bladder cancer that is currently in remission and has had previous chemo and radiation. Patient is followed by Dr. Monteiro. Patient is currently on Xarelto which he has been taking. He states has been having pain in the lower abdomen described as cramping. Denies any fevers or chills chest pain shortness of breath or any other symptoms Related Data Home Medications Medication Instructions Recorded Confirmed [place] Magnair Starter 25 mcg INHALATION BID 05/14/19 07/21/19 Maalox Maximum Strength 10 ml PO TID PRN 05/14/19 07/21/19 Onglyza 5 mg PO DAILY 05/14/19 07/21/19 Xarelto 20 mg PO QPM 05/14/19 07/21/19 acetaminophen 325 mg PO Q6H PRN 05/14/19 07/21/19 albuterol sulfate 0.63 mg INHALATION Q4H PRN 05/14/19 07/21/19 aspirin [Adult Low Dose Aspirin] 81 mg PO DAILY 05/14/19 07/21/19 atorvastatin 20 mg PO HS 05/14/19 07/21/19 benzonatate 100 mg PO TID PRN 05/14/19 07/21/19 budesonide-formoterol [Symbicort] 2 puff INHALATION Q12H 05/14/19 07/21/19 buspirone 5 mg PO TID 05/14/19 07/21/19 carvedilol 25 mg PO Q12H 05/14/19 07/21/19 cyclobenzaprine 10 mg PO TID PRN 05/14/19 07/21/19 duloxetine [Cymbalta] 30 mg PO DAILY 05/14/19 07/21/19 ferrous sulfate [Feosol] 325 mg PO EVERY OTHER DAY 05/14/19 07/21/19 furosemide 40 mg PO DAILY 05/14/19 07/21/19 isosorbide mononitrate 120 mg PO DAILY 05/14/19 07/21/19 loratadine [Claritin] 10 mg PO DAILY 05/14/19 07/21/19 nitroglycerin [Nitrostat] 0.4 mg SUBLINGUAL Q5-15M PRN 05/14/19 07/21/19 pantoprazole [Protonix] 40 mg PO BID 05/14/19 07/21/19 polyethylene glycol 3350 [Miralax] 17 g PO DAILY 05/14/19 07/21/19 pramipexole 0.5 mg PO HS 05/14/19 07/21/19 prazosin 5 mg PO HS 05/14/19 07/21/19 ranolazine [Ranexa] 500 mg PO Q12H 05/14/19 07/21/19 rivaroxaban [Xarelto] 20 mg PO DAILY 05/25/19 07/21/19 [place] Magnair Starter 25 mcg INHALATION Q12H 07/30/19 07/31/19 Onglyza 5 mg PO DAILY 07/30/19 07/31/19 Xarelto 20 mg PO HS 07/30/19 07/31/19 acetaminophen 650 mg PO Q6H PRN 07/30/19 07/31/19 albuterol sulfate 2.5 mg INHALATION Q4H PRN 07/30/19 07/31/19 albuterol sulfate [Ventolin HFA] 2 puff INHALATION Q4H PRN 07/30/19 07/31/19 alum-mag hydroxide-simeth [Maalox 10 ml PO QID PRN 07/30/19 07/31/19 Advanced] amitriptyline 50 mg PO HS 07/30/19 07/31/19 aspirin [Aspir-Low] 81 mg PO DAILY 07/30/19 07/31/19 atorvastatin 20 mg PO HS 07/30/19 07/31/19 benzonatate 100 mg PO TID PRN 07/30/19 07/31/19 budesonide-formoterol [Symbicort] 2 puff INHALATION Q12H 07/30/19 07/31/19 buspirone 5 mg PO TID 07/30/19 07/31/19 carvedilol 25 mg PO Q12H 07/30/19 07/31/19 cyclobenzaprine 10 mg PO TID PRN 07/30/19 07/31/19 duloxetine 60 mg PO DAILY 07/30/19 07/31/19 fentanyl 1 patch TRANSDERMAL Q72H 07/30/19 07/31/19 ferrous sulfate 325 mg PO USEASDIRECTD 07/30/19 07/31/19 furosemide 40 mg PO DAILY 07/30/19 07/31/19 hydrocodone-acetaminophen [[place]] 1 tablet PO Q6H PRN 07/30/19 07/31/19 isosorbide mononitrate 120 mg PO HS 07/30/19 07/31/19 levofloxacin 500 mg PO DAILY 07/30/19 07/31/19 loratadine 10 mg PO DAILY 07/30/19 07/31/19 nitroglycerin 0.4 mg SUBLINGUAL USEASDIRECTD PRN 07/30/19 07/31/19 pantoprazole 40 mg PO BID 07/30/19 07/31/19 polyethylene glycol 3350 17 g PO DAILY 07/30/19 07/31/19 pramipexole 0.5 mg PO HS 07/30/19 07/31/19 prazosin 5 mg PO HS 07/30/19 07/31/19 prochlorperazine maleate 10 mg PO Q6H PRN 07/30/19 07/31/19 [Compazine] ranolazine [Ranexa] 500 mg PO Q12H 07/30/19 07/31/19 Allergies Allergy/AdvReac Type Severity Reaction Status Date / Time Iodinated Contrast Media Allergy Unknown Hives Verified 11/14/19 06:10 iodine AdvReac Hives Verified 11/14/19 06:10 Review of Systems
[2019-11-14 05:57] LABS: Basophils Percent Auto 0.3 % (0.2-1.2); Eosinophils Absolute Auto 0.2 K/mm3 (0-0.3); Eosinophils Percent Auto 2.1 % (0-4.4); Hematocrit 30.2 % (42.0-52.0); Hemoglobin 9.7 g/dL (14.0-18.0); Immature Granulocyte Absolute 0.04 K/mm3 (0.00-0.031); Immature Granulocyte Percent A 0.6 % (0-0.5); Lymphocytes Absolute Auto 0.58 K/mm3 (0.9-3.2); Lymphocytes Percent Auto 8.1 % (18.3-44.2); Mean Corpuscular HGB Conc 32.1 g/dl (32-36); Mean Corpuscular Volume 96.5 fl (80-100); Mean Platelet Volume 9.9 fl (7.4-10.4); Monocytes Absolute Auto 0.7 K/mm3 (0.1-0.6); Monocytes Percent Auto 10.1 % (2.6-8.5); Neutrophils Absolute Auto 5.6 K/mm3 (1.3-6.7); Neutrophils Percent Auto 78.8 % (45.5-73.1); Platelet Count Result 122 k/mm3 (150-375); Red Blood Count 3.13 M/mm3 (4.6-6.20); Red Cell Distribution Width 14.6 % (11.5-14.5); White Blood Count 7.1 K/mm3 (4.5-10.0)
[2019-11-14] MEDS: SODIUM CHLORIDE 0.9% IV 1,000 ML 999 ML IV CONT (06:03)
[2019-11-14 06:13] LABS: Alanine Aminotransferase 9 U/L (4-50); Albumin Level 3.6 g/dL (3.5-5.1); Alkaline Phosphatase 88 U/L (38-126); Aspartate Amino Transferase 19 U/L (17-59); Bilirubin,Total 0.4 mg/dL (0.2-1.3); Blood Urea Nitrogen 25 mg/dL (9-20); Calcium 8.6 mg/dL (8.4-10.2); Carbon Dioxide 29 mmol/L (22-30); Chloride 100 mmol/L (98-107); Estimated Glomerular Filt Rate 50; Glucose 137 mg/dL (75-110); Potassium 4.1 mmol/L (3.4-5.0); Sodium 133 mmol/L (137-145)
[2019-11-14 06:24] LABS: INR 2.8; Prothrombin Time 29.2 Seconds (11.1-14.7)
[2019-11-14 06:26] LABS: Partial Thromboplastin Time 65.5 SECONDS (22.3-36.8)
--- NOTE | 2019-11-14 08:34 | ADMGEN ---
This patient, Jaskaran Andrews, was admitted to IMU Room 200-01 at 0820. Patient/family oriented to hospital policies and general routines including ID bracelet, bed and alarms, visiting hours, pain management, procedures, bathroom and other care routines, personal items, smoking policy, room service/diet, and visiting hours. Valuables list has been completed. Information on how to activate the Rapid Response Team has been discussed. Patient/Family are encouraged to report perceived risks to care and to ask questions if they do not understand what they are told or what they should do.
[2019-11-14 10:37] LABS: Hematocrit 27.2 % (42.0-52.0); Hemoglobin 8.8 g/dL (14.0-18.0)
--- NOTE | 2019-11-14 10:44 | PM.IMHP ---
H&P: HPI History of Present Illness Chief complaint: hematuria/anemia Narrative: Jaskaran Andrews is a 69 year old male with bladder cancer and atrial fib of Xarelto here for gross hematuria. Patient states he has been having frequent episodes of hematuria after right nephroureterectomy in 2016 after being discovered to have high-grade papillary urothelial carcinoma. He completed adjuvant chemotherapy in early 2017 and pelvic radiation therapy was discontinued after only 2 fractions in November 2018. Patient states he has episodes of hematuria every 1-2 months on average. He did have a TURBT and TURP on 02/23/19 which did show urotherlial carcinoma with extension into the prostate. More recently he is being treated for local recurrence of high grade urothelial carcinoma in the right mid to distal ureter remnant. He just completed radiation treatment July and states chemotherapy is being planned with first treatment scheduled for tomorrow. Patient, however, developed hematuria about 3-4 days ago. The urine was pink but then became a darker color. Yesterday he began to pass clots. The clots or becoming bigger in size with pain with urination. Was also having dysuria. No fever or chills. He was able to continue to avoid. No complete obstruction. He has back pain but this is chronic for him. He also has lower abdominal pain but again this is more chronic related to his incisional hernias. He has been having nausea and vomiting as well as headaches recently. Because of the worsening hematuria he was sent to the emergency room for evaluation. In the emergency room, patient tachycardic and hypotensive. Hemoglobin was 9.7. INR 2.8. He is on Xarelto for atrial fibrillation. His creatinine was 1.4 which is above his baseline. CT of the abdomen pelvis showed persistent bladder wall inflammation and right lower lobe spiculated nodular region which could be post infectious although 3 month follow-up she CT scan is recommended. Review of Systems Review of Systems: Narrative: Gen - No fever or chills Eye - no double vision or vision changes ENT -chronic hearing loss but no tinnitus, odynophagia or dysphagia CV - no chest pain or palpitation Pulm - no shortness of breath or cough. He does have dyspnea on exertion which is chronic. GI -as above -as above Neuro - no numbness, tingling weakness the extremities. Endo - no weight loss. He denies that he has diabetes but listed on his PMH Psych - chronic depression with PTSD. Denies HI/SI [facility] Past Medical History Medical History Abdominal hernia Anxiety Arthritis Asthma Atrial fibrillation Bipolar 1 disorder Carotid stenosis Cataracts, bilateral CHF (congestive heart failure) Chronic diastolic heart failure Chronic respiratory failure Cirrhosis CKD (chronic kidney disease) COPD (chronic obstructive pulmonary disease) CVA (cerebral vascular accident) Depression Diabetes DVT (deep venous thrombosis) GERD (gastroesophageal reflux disease) GERD (gastroesophageal reflux disease) Glaucoma Hepatitis C Hernia History of angina History of atrial fibrillation History of cancer of stomach History of DVT (deep vein thrombosis) History of GI bleed History of heart attack History of inguinal hernia History of pneumonia History of stroke Hx of bladder cancer Hx of renal cell cancer Hx: UTI (urinary tract infection) Hypercholesteremia Hyperlipidemia Hyperlipidemia Hypertension Medical history unknown ERIC (obstructive sleep apnea) PE (pulmonary thromboembolism) Peptic ulcer disease Peripheral neuropathy Previous known suicide attempt multiple. PTSD (post-traumatic stress disorder) PVD (peripheral vascular disease) Renal disease Sleep apnea Ulcer Surgical History Surgical History History of appendectomy History of bilateral knee replacement History of bladder surgery History of carp
--- NOTE | 2019-11-14 13:16 | WPDURCON ---
Assessment and Plan Assessment and plan (1) Urothelial carcinoma of bladder: Code(s): C67.9 - Malignant neoplasm of bladder, unspecified Status: Acute (2) Hematuria: Code(s): R31.9 - Hematuria, unspecified Status: Acute (3) Normocytic anemia: Code(s): D64.9 - Anemia, unspecified Status: Acute Assessment and Plan: Continue CBI Chemo may need to be held at this time given this admission Xarelto has been held and this should help with the hematuria resolution If no improvement in the next 1-2 days, may need to go back to OR for cystoscopy (last one according to pt was September). Urology Consult Note HPI Date Seen: 11/14/19 Requesting Physician: Vargas Stevens MD Primary Care Provider: Levon Velasquez Jr., MD Consult Narrative Narrative: Jaskaran Andrews is a 69 year old male with a history of right nephroureterctomy by Dr Monteiro. Apparently had a recurrence and now has undergone radiation in the right pelvis and is about to get chemo tomorrow here at [facility]. Patient has been dealing with gross hematuria for the past couple of years in an intermittent fashion. He is on Xarelto for afib (held since admission today). Review of Systems Review of Systems: All systems reviewed & are unremarkable except as noted in HPI and below (feels tired but otherwise no issues) PMFSH Past Medical History Medical History Abdominal hernia Anxiety Arthritis Asthma Atrial fibrillation Bipolar 1 disorder Carotid stenosis Cataracts, bilateral CHF (congestive heart failure) Chronic diastolic heart failure Chronic respiratory failure Cirrhosis CKD (chronic kidney disease) COPD (chronic obstructive pulmonary disease) CVA (cerebral vascular accident) Depression Diabetes DVT (deep venous thrombosis) GERD (gastroesophageal reflux disease) GERD (gastroesophageal reflux disease) Glaucoma Hepatitis C Hernia History of angina History of atrial fibrillation History of cancer of stomach History of DVT (deep vein thrombosis) History of GI bleed History of heart attack History of inguinal hernia History of pneumonia History of stroke Hx of bladder cancer Hx of renal cell cancer Hx: UTI (urinary tract infection) Hypercholesteremia Hyperlipidemia Hyperlipidemia Hypertension Medical history unknown ERIC (obstructive sleep apnea) PE (pulmonary thromboembolism) Peptic ulcer disease Peripheral neuropathy Previous known suicide attempt multiple. PTSD (post-traumatic stress disorder) PVD (peripheral vascular disease) Renal disease Sleep apnea Ulcer Surgical History Surgical History History of appendectomy History of bilateral knee replacement History of bladder surgery History of carpal tunnel release History of cholecystectomy History of inguinal hernia repair History of left knee surgery History of nephrectomy rt History of nephrectomy, right History of spinal surgery History of vascular surgery Hx of CABG Hx of cardiac cath with stents Hx of tonsillectomy S/P CABG x 5 Surgical history unknown Family History Family History Father Acute myocardial infarction Congestive heart failure Sibling Acute myocardial infarction Congestive heart failure Hypertension Diabetes mellitus Sibling Acute myocardial infarction Congestive heart failure Hypertension Diabetes mellitus Sibling Acute myocardial infarction Diabetes mellitus Mother Cerebrovascular accident Hypertension Diabetes mellitus Social History Social History (Updated 11/14/19 @ 11:39 by Andi Stevens MD) Social History: Patient with history of heavy alcohol use but quit in 2009. He denies any history of drug use. He smoked up to 2 packs a day since age 7yo but currently down to half a pack a day. He has been remarried and he nominates
[2019-11-14] MEDS: PHYTONADIONE 5 MG TABLET 10 MG PO (13:18)
[2019-11-14] MEDS: FERROUS SULFATE 324 MG TABLET PO (13:19)
[2019-11-14] MEDS: polyethylene glycoL 3350 17 GM POWD.PACK PO (13:19)
[2019-11-14] MEDS: RANOLAZINE 500 MG TAB.ER.12H PO ×2 (13:19→20:48)
[2019-11-14] MEDS: DULOXETINE 60 MG CAPSULE.DR PO (13:20)
[2019-11-14] MEDS: busPIRone HCL 5 MG TABLET PO ×2 (13:20→17:42)
[2019-11-14] MEDS: LORATADINE 10 MG TABLET PO (13:20)
[2019-11-14] MEDS: ACETAMINOPHEN 325 MG TABLET 650 MG PO (13:28)
[2019-11-14] MEDS: SODIUM CHLORIDE 0.9% IV 1,000 ML 100 ML IV CONT ×2 (13:29→21:43)
--- NOTE | 2019-11-14 17:50 | PC.NURSE ---
Manual Blood Pressures are more stable with patient. Will pass on in report to obtain blood pressures manually r/t chronic afib.
[2019-11-14] MEDS: PANTOPRAZOLE 40 MG TABLET PO (20:48)
[2019-11-14] MEDS: PRAMIPEXOLE 0.5 MG TABLET PO (20:49)
[2019-11-14] MEDS: ATORVASTATIN 20 MG TABLET PO (20:49)
[2019-11-14] MEDS: CENTRAL LINE FLUSH 10 ML IV PUSH (22:15)
[2019-11-14] MEDS: CENTRAL LINE FLUSH 20 ML IV PUSH (22:16)
[2019-11-14 22:22] LABS: Hematocrit 24.7 % (42.0-52.0); Hemoglobin 7.8 g/dL (14.0-18.0)
[2019-11-15] VITALS (23 sets, daily range): BP systolic 95–118; BP diastolic 39–64; PULSE 70–112; RESP 14–24; TEMP 35.9–36.8; O2SAT 92–100
[2019-11-15] MEDS: CENTRAL LINE FLUSH 10 ML IV PUSH ×4 (06:12→20:43)
[2019-11-15] MEDS: CENTRAL LINE FLUSH 20 ML IV PUSH (06:12)
[2019-11-15] MEDS: WATER FOR IRRIGATION, STERILE 1,000 ML BOTTLE 1000 ML (06:13)
[2019-11-15 06:22] LABS: Basophils Percent Auto 0.1 % (0.2-1.2); Eosinophils Absolute Auto 0.1 K/mm3 (0-0.3); Eosinophils Percent Auto 1.4 % (0-4.4); Hematocrit 28.5 % (42.0-52.0); Hemoglobin 9.3 g/dL (14.0-18.0); Immature Granulocyte Absolute 0.04 K/mm3 (0.00-0.031); Immature Granulocyte Percent A 0.6 % (0-0.5); Lymphocytes Percent Auto 5.8 % (18.3-44.2); Mean Corpuscular HGB Conc 32.6 g/dl (32-36); Mean Corpuscular Hemoglobin 31.8 pg (26-34); Mean Corpuscular Volume 97.6 fl (80-100); Mean Platelet Volume 10.5 fl (7.4-10.4); Monocytes Absolute Auto 0.7 K/mm3 (0.1-0.6); Monocytes Percent Auto 10.1 % (2.6-8.5); Neutrophils Absolute Auto 5.7 K/mm3 (1.3-6.7); Platelet Count Result 112 k/mm3 (150-375); Red Blood Count 2.92 M/mm3 (4.6-6.20); Red Cell Distribution Width 14.9 % (11.5-14.5); White Blood Count 6.9 K/mm3 (4.5-10.0)
[2019-11-15 06:36] LABS: Blood Urea Nitrogen 17 mg/dL (9-20); Calcium 8.2 mg/dL (8.4-10.2); Carbon Dioxide 29 mmol/L (22-30); Chloride 107 mmol/L (98-107); Estimated CRCL calculation 69 ml/min; Estimated Glomerular Filt Rate > 60; Glucose 113 mg/dL (75-110); Potassium 4.3 mmol/L (3.4-5.0); Sodium 136 mmol/L (137-145)
--- NOTE | 2019-11-15 07:49 | WPDUROPN2 ---
Progress Note: A&P Assessment and Plan (1) Hematuria: Code(s): R31.9 - Hematuria, unspecified Status: Acute Assessment and Plan: Clearing on a very slow CBI. Xarelto has been held. (2) Bladder cancer: Qualifiers: Bladder location: unspecified site Qualified Code(s): C67.9 - Malignant neoplasm of bladder, unspecified Code(s): C67.9 - Malignant neoplasm of bladder, unspecified Status: Acute Assessment and Plan: Chemotherapy pending. Subjective Subjective Date/Time Seen: 11/15/19 07:49 Urine light pink on a slow CBI. Patient otherwise sleeping comfortably. Exam Const: General: no acute distress Resp: Effort & Inspection: normal respiratory effort Urinary Catheter: Urinary Catheter: patent and draining and urine pink Objective Data Vital Signs Vital Signs: Vital Signs - 24 hr 11/14/19 08:12 11/14/19 08:40 11/14/19 10:00 Temperature 96.7 F L Pulse Rate 98 114 H 90 Respiratory Rate 18 14 Blood Pressure 104/53 L 94/63 L Pulse Oximetry 95 96 11/14/19 12:00 11/14/19 14:00 11/14/19 16:00 Temperature 96.5 F L 96.4 F L Pulse Rate 92 104 H 113 H Respiratory Rate 14 12 Blood Pressure 94/66 L 110/65 Pulse Oximetry 95 93 11/14/19 17:46 11/14/19 18:00 11/14/19 19:40 Temperature 96.3 F L Pulse Rate 97 115 H Respiratory Rate 18 Blood Pressure 112/68 101/66 Pulse Oximetry 97 11/14/19 20:00 11/14/19 20:14 11/14/19 20:27 Temperature Pulse Rate 102 H 92 92 Respiratory Rate 18 17 Blood Pressure Pulse Oximetry 98 93 11/14/19 21:47 11/14/19 22:46 11/14/19 23:05 Temperature 97 F L 97.4 F L Pulse Rate 91 92 98 Respiratory Rate 22 H 24 H Blood Pressure 109/54 L 100/60 Pulse Oximetry 96 96 11/14/19 23:56 11/15/19 00:00 11/15/19 00:05 Temperature 97.2 F L 97.2 F L Pulse Rate 91 91 91 Respiratory Rate 24 H 24 H Blood Pressure 118/58 L 118/58 L Pulse Oximetry 97 97 11/15/19 00:12 11/15/19 00:50 11/15/19 01:45 Temperature 97.1 F L Pulse Rate 90 104 H 90 Respiratory Rate 14 22 H Blood Pressure 99/60 L Pulse Oximetry 93 100 11/15/19 03:35 11/15/19 03:37 11/15/19 06:00 Temperature 97.6 F Pulse Rate 90 86 99 Respiratory Rate 22 H 17 Blood Pressure 118/59 L Pulse Oximetry 98 93 Intake/Output Intake/Output: Intake & Output 11/12/19 11/13/19 11/14/19 11/15/19 23:59 23:59 23:59 23:59 Intake Total 2050 750 Output Total 1575 950 Balance 475 -200 Meds/Results Medications: Active Medications Generic Name Dose Route Start Last Admin Trade Name Freq PRN Reason Stop Dose Admin Acetaminophen 650 mg 11/14/19 11:58 11/14/19 13:28 Tylenol Tablet PO 650 mg Q6H PRN Administration Pain, Mild Al Hydrox/Mg Hydrox/Simethicone 5 ml 11/14/19 11:58 Mylanta PO TID PRN Indigestion Albuterol 2.5 mg 11/14/19 11:58 Albuterol Sulf Neb 2.5 Mg/3 Ml INHALATION Q4H PRN Shortness Of Breath Atorvastatin Calcium 20 mg 11/14/19 21:00 11/14/19 20:49 Lipitor PO 20 mg HS TEREZA Administration Benzonatate 100 mg 11/14/19 11:58 Tessalon Perles PO TID PRN Cough Budesonide/Formoterol Fumarate 2 puff 11/14/19 20:00 11/14/19 20:11 Symbicort 80-4.5 Mcg (*Sp) Inhaler INHALATION 2 puff Q12HRT TEREZA Administration Buspirone HCl 5 mg 11/14/19 13:00 11/14/19 17:42 Buspar PO 5 mg TID TEREZA Administration Cyclobenzaprine HCl 10 mg 11/14/19 11:58 Flexeril PO TID PRN Spasms Duloxetine HCl 60 mg 11/14/19 12:10 11/14/19 13:20 Cymbalta PO 60 mg DAILY TEREZA Administration Fentanyl 25 mcg 11/16/19 09:00 Duragesic 25 Mcg Patch TRANSDERM Q72HR TEREZA Ferrous Sulfate 324 mg 11/14/19 09:00 11/14/19 13:19 Ferrous Sulfate PO 324 mg Q48HR TEREZA Administration Heparin Sodium (Porcine) 500 units 11/15/19 07:25 Heparin Sod Flush 100 Units/Ml IV PUSH PRN PRN see comments be
[2019-11-15] MEDS: LORATADINE 10 MG TABLET PO (08:26)
[2019-11-15] MEDS: busPIRone HCL 5 MG TABLET PO ×3 (08:26→16:24)
[2019-11-15] MEDS: polyethylene glycoL 3350 17 GM POWD.PACK PO (08:27)
[2019-11-15] MEDS: DULOXETINE 60 MG CAPSULE.DR PO (08:27)
[2019-11-15] MEDS: PANTOPRAZOLE 40 MG TABLET PO ×2 (08:27→20:42)
[2019-11-15] MEDS: RANOLAZINE 500 MG TAB.ER.12H PO ×2 (08:27→20:41)
[2019-11-15 08:40] LABS: Glucose Point of Care 102 (65-105)
[2019-11-15] MEDS: CYCLOBENZAPRINE HCL 10 MG TABLET PO (10:03)
[2019-11-15] MEDS: SODIUM CHLORIDE 0.9% IV 1,000 ML 100 ML IV CONT (10:17)
[2019-11-15 14:56] LABS: Glucose Point of Care 167 (65-105)
[2019-11-15] MEDS: ACETAMINOPHEN 325 MG TABLET 650 MG PO (15:23)
--- NOTE | 2019-11-15 16:36 | PM.IMPN ---
Progress Note: A&P Assessment and Plan (1) Hemorrhagic shock: Code(s): R57.8 - Other shock Status: Acute Assessment and Plan: Patient was tachycardic and hypotensive on presentation. [place] related to acute blood loss. BP still soft at times. Continue IV fluids and supportive care. Transfuse as necessary. (2) Hematuria: Code(s): R31.9 - Hematuria, unspecified Status: Acute Assessment and Plan: Patient with multiple episodes of hematuria. Related to his known cancer. Urology has been consulted. Continue CBI until clear. hgb dropped to 7.8 and he received 1 U of PRBC. Possible cystoscopy in the morning. Contineu to monitor H&H and transfuse as necessary. Contineu Rocephin (3) Atrial fibrillation: Code(s): I48.91 - Unspecified atrial fibrillation Status: Acute Assessment and Plan: Patient with known history of atrial fibrillation on Xarelto. He is also on carvedilol for rate control. Both these medications will be on hold for now. HR climbing - resume Coreg when able. INR elevated 2.8 related to the Xarelto and he was given 1 dose of vitamin K. Hold on FFP at this time. Resume Xarelto when able. (4) Urothelial carcinoma of bladder: Code(s): C67.9 - Malignant neoplasm of bladder, unspecified Status: Acute Assessment and Plan: Patient with long history battling the urothelial carcinoma. He completed radiation 3 months ago. He states there is plans for repeat chemotherapy. Consider Oncology consult if he has prolonged hospitalization but otherwise plan is for him to follow-up with Dr. Renner in the clinic after discharge to to start chemotherapy. (5) Anemia: Code(s): D64.9 - Anemia, unspecified Status: Acute Assessment and Plan: Patient with acute blood loss anemia with underlying chronic anemia. Hemoglobin normally runs in the 11-12 range. Earlier this year he has dropped down to the 9-10 range. He is on Xarelto for his AFib. Hemoglobin is drifting down probably because of his recurrent hematuria. Continue to monitor H&H closely and transfuse as necessary. (6) Lung mass: Code(s): R91.8 - Other nonspecific abnormal finding of lung field Status: Acute Assessment and Plan: CT of the chest showing spiculated mass in the right lower lobe. He will need follow-up imaging for this. (7) ERIC (obstructive sleep apnea): Code(s): G47.33 - Obstructive sleep apnea (adult) (pediatric) Status: Acute Assessment and Plan: Patient does not wear CPAP at the retirement because they were having trouble locating a unit per patient. Toelrate the PAP therapy last night (8) CKD (chronic kidney disease): Code(s): N18.9 - Chronic kidney disease, unspecified Status: Acute Assessment and Plan: Creatinine 1.4 on admission. Baseline creatinine is anywhere from 1 to 1.5 mostly. Creatine improved to 1.0 today. Contineu to monitor. (9) Thrombocytopenia: Code(s): D69.6 - Thrombocytopenia, unspecified Status: Acute Assessment and Plan: Noted and chronic . Subjective Date/time seen: 11/15/19 16:36 Interval history: 69yo male with AFib and bladder cancer here for gross hematuria. Patient's hgb dropped and patient received 1U of PRBC. Currently having lower abdominal pain and cramping. No n/v. No CP or SOB. Eating okay. Exam Narrative: Exam Narrative: AF 104/39 107 Gen -NARD sitting up in chair Chest - few basilar rhonchi. Nml RR CV -irregular and tachycardic. S1-S2. Tele shownig AFib with HR in the 110 Abd -soft. Mild tenderness bilateral lower quadrants - Koo catheter secured and attached to a CBI. Urine is pink in color. Ext -trace woody pedal edema Psych - Nml mood and affect. Skin -multiple small eschars noted bilateral lower extremities in various stages of healing. Objective Data Vital Signs Vital Signs:
[2019-11-15 17:05] LABS: Glucose Point of Care 129 (65-105)
[2019-11-15] MEDS: SODIUM CHLORIDE 0.9% IV 1,000 ML 70 ML IV CONT (20:40)
[2019-11-15] MEDS: PRAMIPEXOLE 0.5 MG TABLET PO (20:42)
[2019-11-15] MEDS: ATORVASTATIN 20 MG TABLET PO (20:42)
[2019-11-15 20:56] LABS: Hematocrit 28.3 % (42.0-52.0); Hemoglobin 9.1 g/dL (14.0-18.0)
[2019-11-16] VITALS (24 sets, daily range): BP systolic 104–168; BP diastolic 58–89; PULSE 92–125; RESP 17–22; TEMP 36.2–37.2; O2SAT 90–100
[2019-11-16 00:32] LABS: Hematocrit 25.6 % (42.0-52.0); Hemoglobin 8.2 g/dL (14.0-18.0)
[2019-11-16] MEDS: CENTRAL LINE FLUSH 10 ML IV PUSH ×5 (04:39→22:26)
[2019-11-16 05:04] LABS: Hematocrit 26.3 % (42.0-52.0); Hemoglobin 8.4 g/dL (14.0-18.0); Mean Corpuscular HGB Conc 31.9 g/dl (32-36); Mean Corpuscular Hemoglobin 30.9 pg (26-34); Mean Corpuscular Volume 96.7 fl (80-100); Mean Platelet Volume 9.8 fl (7.4-10.4); Platelet Count Result 91 k/mm3 (150-375); Red Blood Count 2.72 M/mm3 (4.6-6.20); Red Cell Distribution Width 14.8 % (11.5-14.5); White Blood Count 5.3 K/mm3 (4.5-10.0)
[2019-11-16 05:17] LABS: Blood Urea Nitrogen 12 mg/dL (9-20); Calcium 7.8 mg/dL (8.4-10.2); Carbon Dioxide 27 mmol/L (22-30); Chloride 108 mmol/L (98-107); Estimated CRCL calculation 76 ml/min; Estimated Glomerular Filt Rate > 60; Glucose 113 mg/dL (75-110); Potassium 3.9 mmol/L (3.4-5.0); Sodium 136 mmol/L (137-145)
[2019-11-16] MEDS: FERROUS SULFATE 324 MG TABLET PO (08:38)
[2019-11-16] MEDS: LORATADINE 10 MG TABLET PO (08:39)
[2019-11-16] MEDS: EUCERIN CREAM 120 GM JAR 1 APPLIC TOPICAL (08:39)
[2019-11-16] MEDS: RANOLAZINE 500 MG TAB.ER.12H PO ×2 (08:39→22:25)
[2019-11-16] MEDS: busPIRone HCL 5 MG TABLET PO ×3 (08:39→17:41)
[2019-11-16] MEDS: PANTOPRAZOLE 40 MG TABLET PO ×2 (08:39→22:25)
[2019-11-16] MEDS: DULOXETINE 60 MG CAPSULE.DR PO (08:39)
[2019-11-16] MEDS: FENTANYL 25 MCG/HR PATCH TRANSDERM (08:41)
[2019-11-16] MEDS: CYCLOBENZAPRINE HCL 10 MG TABLET PO (08:49)
[2019-11-16] MEDS: SODIUM CHLORIDE 0.9% IV 1,000 ML 70 ML IV CONT (12:28)
--- NOTE | 2019-11-16 12:43 | PM.IMPN ---
Progress Note: A&P Assessment and Plan (1) Hemorrhagic shock: Code(s): R57.8 - Other shock Status: Acute Assessment and Plan: Patient was tachycardic and hypotensive on presentation. [place] related to acute blood loss. Continue IV fluids and supportive care. Hemoglobin up to 8.4 will continue to monitor. Blood pressure has rebounded also (2) Hematuria: Code(s): R31.9 - Hematuria, unspecified Status: Acute Assessment and Plan: Patient with multiple episodes of hematuria. Related to his known cancer. Urology has been consulted. Continue CBI until clear. Defer to urology about possible cystoscopy. Monitor H&H and transfuse as necessary. (3) Atrial fibrillation: Code(s): I48.91 - Unspecified atrial fibrillation Status: Acute Assessment and Plan: Patient with known history of atrial fibrillation on Xarelto. He is also on carvedilol for rate control. With blood pressure higher and pulse intermittently up but 120 will restart carvedilol at 12.5 q.12 hours to try to control rate. Will discuss with urology about when and if it is safe to resume his Xarelto. (4) Urothelial carcinoma of bladder: Code(s): C67.9 - Malignant neoplasm of bladder, unspecified Status: Acute Assessment and Plan: Patient with long history battling the urothelial carcinoma. He does completed radiation 3 months ago. He states there is plans for repeat chemotherapy. plan is for him to follow-up with Dr. Renner in the clinic after discharge to to start chemotherapy. (5) Anemia: Code(s): D64.9 - Anemia, unspecified Status: Acute Assessment and Plan: Patient with acute blood loss anemia with underlying chronic anemia. Hemoglobin normally runs in the 11-12 range. Earlier this year he has dropped down to the 9-10 range. He is on Xarelto for his AFib. Hemoglobin is drifting down probably because of his recurrent hematuria. Continue to monitor H&H closely and transfuse as necessary. (6) Lung mass: Code(s): R91.8 - Other nonspecific abnormal finding of lung field Status: Acute Assessment and Plan: CT of the chest showing spiculated mass in the right lower lobe. He will need follow-up imaging for this. (7) ERIC (obstructive sleep apnea): Code(s): G47.33 - Obstructive sleep apnea (adult) (pediatric) Status: Acute Assessment and Plan: Patient does not wear CPAP at the skilled nursing because they were having trouble locating a unit per patient. He would like to start CPAP here which will order. (8) CKD (chronic kidney disease): Code(s): N18.9 - Chronic kidney disease, unspecified Status: Acute Assessment and Plan: Creatinine 1.4 on admission. Baseline creatinine is anywhere from 1 to 1.5 mostly. Suspect patient in baseline range. Will continue to monitor. Subjective Date/time seen: 11/16/19 12:43 Interval history: Date of visit 11/15. 69yo male with AFib and bladder cancer here for gross hematuria. Patient's hgb dropped and patient received 1U of PRBC. No further abdominal pain or cramping. No n/v. No CP or SOB. Eating okay. Hemoglobin stable 8.4 Exam Narrative: Exam Narrative: AF 124/64 100 Gen -NARD sitting up on side of bed Chest - few basilar rhonchi. Otherwise clear CV -irregular and tachycardic. S1-S2. Tele shownig AFib alternating sinus tach Abd -soft. Mild tenderness bilateral lower quadrants - Koo catheter secured and attached to a CBI. Urine is pink in color. Ext -trace woody pedal edema Psych - Nml mood and affect. Skin -multiple small eschars noted bilateral lower extremities in various stages of healing. Objective Data Vital Signs Vital Signs: Vital Signs - 24 hr 11/15/19 14:00 11/15/19 16:00 11/15/19 16:17 Temperature 35.9 C L Pulse Rate 108 H 108 H 108 H Respiratory Rate 20 Blood Pressure 104/39 L Pulse Oximetry 100
--- NOTE | 2019-11-16 13:36 | WPDUROPN2 ---
Progress Note: A&P Assessment and Plan (1) Hematuria: Code(s): R31.9 - Hematuria, unspecified Status: Acute Assessment and Plan: Will proceed with cysto with possible clot evacuation today. Subjective Subjective Date/Time Seen: 11/16/19 13:36 Review of Systems Review of Systems: All systems reviewed & are unremarkable except as noted in HPI and below Exam Const: General: no acute distress Resp: Effort & Inspection: normal respiratory effort Cardio: Rate: regular rate Objective Data Vital Signs Vital Signs: Vital Signs - 24 hr 11/15/19 14:00 11/15/19 16:00 11/15/19 16:17 Temperature 35.9 C L Pulse Rate 108 H 108 H 108 H Respiratory Rate 20 Blood Pressure 104/39 L Pulse Oximetry 100 11/15/19 18:00 11/15/19 19:46 11/15/19 20:00 Temperature 36.6 C Pulse Rate 107 H 112 H 108 H Respiratory Rate 18 16 Blood Pressure 95/51 L Pulse Oximetry 98 92 11/15/19 20:18 11/15/19 22:00 11/15/19 22:03 Temperature Pulse Rate 108 H 98 72 Respiratory Rate 18 16 Blood Pressure Pulse Oximetry 97 92 11/15/19 23:33 11/15/19 23:38 11/16/19 01:50 Temperature 36.2 C L Pulse Rate 87 89 99 Respiratory Rate 20 20 21 H Blood Pressure 108/53 L Pulse Oximetry 100 100 90 11/16/19 02:00 11/16/19 04:00 11/16/19 05:38 Temperature 36.7 C Pulse Rate 93 111 H 92 Respiratory Rate 18 Blood Pressure 151/89 H Pulse Oximetry 99 11/16/19 08:00 11/16/19 08:18 11/16/19 10:00 Temperature 36.4 C Pulse Rate 98 112 H 113 H Respiratory Rate 18 18 Blood Pressure 124/64 Pulse Oximetry 100 96 11/16/19 12:00 Temperature 36.2 C L Pulse Rate 109 H Respiratory Rate 18 Blood Pressure 127/58 L Pulse Oximetry Intake/Output Intake/Output: Intake & Output 11/13/19 11/14/19 11/15/19 11/16/19 23:59 23:59 23:59 23:59 Intake Total 2050 74662 1000 Output Total 1575 9100 1950 Balance 475 0460 -950 Meds/Results Medications: Active Medications Generic Name Dose Route Start Last Admin Trade Name Freq PRN Reason Stop Dose Admin Acetaminophen 650 mg 11/14/19 11:58 11/15/19 15:23 Tylenol Tablet PO 650 mg Q6H PRN Administration Pain, Mild Hydrocodone Bitart/Acetaminophen 1 tab 11/15/19 10:22 11/16/19 11:58 [place] 5-325 Mg PO 1 tab Q8H PRN Administration Moderate Pain Al Hydrox/Mg Hydrox/Simethicone 5 ml 11/14/19 11:58 Mylanta PO TID PRN Indigestion Albuterol 2.5 mg 11/14/19 11:58 Albuterol Sulf Neb 2.5 Mg/3 Ml INHALATION Q4H PRN Shortness Of Breath Atorvastatin Calcium 20 mg 11/14/19 21:00 11/15/19 20:42 Lipitor PO 20 mg HS TEREZA Administration Benzonatate 100 mg 11/14/19 11:58 Tessalon Perles PO TID PRN Cough Budesonide/Formoterol Fumarate 2 puff 11/14/19 20:00 11/16/19 08:16 Symbicort 80-4.5 Mcg (*Sp) Inhaler INHALATION 2 puff Q12HRT TEREZA Administration Buspirone HCl 5 mg 11/14/19 13:00 11/16/19 12:26 Buspar PO 5 mg TID TEREZA Administration Carvedilol 12.5 mg 11/16/19 21:00 Coreg PO Q12HR TEREZA Cyclobenzaprine HCl 10 mg 11/14/19 11:58 11/16/19 08:49 Flexeril PO 10 mg TID PRN Administration Spasms Duloxetine HCl 60 mg 11/14/19 12:10 11/16/19 08:39 Cymbalta PO 60 mg DAILY TEREZA Administration Fentanyl 25 mcg 11/16/19 09:00 11/16/19 08:41 Duragesic 25 Mcg Patch TRANSDERM 25 mcg Q72HR TEREZA Administration Ferrous Sulfate 324 mg 11/14/19 09:00 11/16/19 08:38 Ferrous Sulfate PO 324 mg Q48HR TEREZA Administration Heparin Sodium (Porcine) 500 units 11/15/19 07:25 Heparin Sod Flush 100 Units/Ml IV PUSH PRN PRN see comments below Sodium Chloride 1,000 mls @ 70 mls/hr 11/14/19 07:05 11/16/19 12:28 Normal Saline Iv IV CONT 70 mls/hr .[id number] TEREZA Administration Ceftriaxone Sodium/Dextrose 1 gm in 50 mls @ 100 mls/hr 11/15/19 19:00 11/15/19 21:10 Rocephin 1 G
--- NOTE | 2019-11-16 14:54 | WPDANESEPPF ---
Anes - Initial Pre Proc Eval Procedure: Operation Date: 11/16/19 16:00 Proposed Procedures p Cystoscopy, Evacuation Bladder Clots - Aristeo Monteiro MD Date/Time: 11/16/19 14:54 Surgeon: Vargas Stevens MD Pre Op Diagnosis: hematuria/anemia Patient Data Age: 69 Gender: M Height: 1.77 m Weight: 96.1 kg Last Vital Signs Temp 36.2 C L 11/16/19 12:00 Pulse 115 H 11/16/19 12:00 Resp 18 11/16/19 12:00 BP 127/58 L 11/16/19 12:00 Pulse Ox 96 11/16/19 08:18 Allergies Allergy/AdvReac Type Severity Reaction Status Date / Time Iodinated Contrast Media Allergy Unknown Hives Verified 11/14/19 06:10 iodine AdvReac Hives Verified 11/14/19 06:10 Home Medications Medication Instructions Recorded Confirmed Type Onglyza 5 mg PO DAILY 05/14/19 11/14/19 History Xarelto 20 mg PO HS 05/14/19 11/14/19 History alum-mag hydroxide-simeth [Maalox 5 ml PO TID PRN 05/14/19 11/14/19 History Maximum Strength] aspirin [Adult Low Dose Aspirin] 81 mg PO DAILY 05/14/19 11/14/19 History atorvastatin 20 mg PO HS 05/14/19 11/14/19 History benzonatate 100 mg PO TID PRN 05/14/19 11/14/19 History buspirone 5 mg PO TID 05/14/19 11/14/19 History carvedilol 25 mg PO Q12H 05/14/19 11/14/19 History cyclobenzaprine 10 mg PO TID PRN 05/14/19 11/14/19 History ferrous sulfate [Feosol] 325 mg PO EVERY OTHER DAY 05/14/19 11/14/19 History isosorbide mononitrate 120 mg PO DAILY 05/14/19 11/14/19 History polyethylene glycol 3350 [Miralax] 17 g PO DAILY 05/14/19 11/14/19 History pramipexole 0.5 mg PO HS 05/14/19 11/14/19 History prazosin 5 mg PO HS 05/14/19 11/14/19 History ranolazine [Ranexa] 500 mg PO Q12H 05/14/19 11/14/19 History oxybutynin chloride 5 mg PO Q8H PRN #20 tablet 05/16/19 11/14/19 Rx Jocya Magnair Starter 25 mcg INHALATION Q12H 07/30/19 11/14/19 History acetaminophen 650 mg PO Q6H PRN 07/30/19 11/14/19 History albuterol sulfate 2.5 mg INHALATION Q4H PRN 07/30/19 11/14/19 History albuterol sulfate [Ventolin HFA] 2 puff INHALATION Q4H PRN 07/30/19 11/14/19 History budesonide-formoterol [Symbicort] 2 puff INHALATION Q12H 07/30/19 11/14/19 History duloxetine 60 mg PO DAILY 07/30/19 11/14/19 History fentanyl 1 patch TRANSDERMAL Q72H 07/30/19 11/14/19 History furosemide 40 mg PO DAILY 07/30/19 11/14/19 History hydrocodone-acetaminophen [[place]] 1 tablet PO Q8H PRN 07/30/19 11/14/19 History loratadine 10 mg PO DAILY 07/30/19 11/14/19 History nitroglycerin 0.4 mg SUBLINGUAL USEASDIRECTD PRN 07/30/19 11/14/19 History pantoprazole 40 mg PO BID 07/30/19 11/14/19 History prochlorperazine maleate 10 mg PO Q6H PRN 07/30/19 11/14/19 History [Compazine] amitriptyline 50 mg PO HS 11/14/19 11/14/19 History sodium chloride-aloe vera [[place] 1 spray INTRANASAL HS PRN 11/14/19 11/14/19 History Saline Gel] Laboratory Tests 11/15/19 11/15/19 11/15/19 11:36 17:00 20:52 WBC RBC Hgb 9.1 g/dL L g/dL (14.0-18.0) Hct 28.3 % L % (42.0-52.0) MCV MCH MCHC RDW Plt Count MPV Sodium Potassium Chloride Carbon Dioxide BUN Creatinine Estim Creat Clear Calc Estimated GFR Glucose POC Capillary Glucose 167 mg/dl H mg/dl 129 mg/dl H mg/dl (65-105) (65-105) Calcium 11/16/19 11/16/19 11/16/19 00:16 04:41 04:41 WBC 5.3 K/mm3 K/mm3 (4.5-10.0) RBC 2.72 M/mm3 L M/mm3 (4.6-6.20) Hgb 8.2 g/dL L g/dL 8.4 g/dL L g/dL (14.0-18.0) (14.0-18.0) Hct 25.6 % L % 26.3 % L % (42.0-52.0) (42.0-52.0) MCV 96.7 fl fl (80-100) MCH 30.9 pg pg (26-34) MCHC 31.9 g/dl L g/dl (32-36) RDW 14.8 % H % (11.5-14.5) Plt Count 91 k/mm3 L k/mm3 (150-375) MPV 9.8 fl fl (7.4-10.4) Sodium 136 mmol/L L m
--- NOTE | 2019-11-16 15:07 | PC.NURSE ---
Patient transferred to OR via bed with OR staff. Oxygen and monitor in use.
[2019-11-16] MEDS: LACTATED RINGERS 1,000 ML 30 ML IV CONT ×2 (15:20→17:22)
[2019-11-16] MEDS: LIDOCAINE HCL 2% GEL UROJET 10 ML PKG MUCOUS MEM (15:43)
--- NOTE | 2019-11-16 15:59 | P.OP_ITS ---
Procedure Note - Detailed Date of procedure: 11/16/19 Pre-op diagnosis: hematuria/anemia Post-op diagnosis: same Procedure performed: Cystoscopy with clot evacuation and fulguration Description of procedure: Patient patient was taken the operative suite and correctly identified. Once anesthesia was obtained he was placed in dorsal lithotomy position and prepped and draped usual sterile fashion. Twenty-four [place] resectoscope sheath was inserted into the bladder. Is some small clots were then evacuated. It was very difficult to get in an adequate evaluation of bladder due the fact that he has been on Xarelto and there is still some diffuse oozing noted. It has the appearance that the he may have quite a bit of tumor recurrence in his bladder. Again the visualization was extremely poor. At this point time we decided to fulgurate what we could visibly see. Using a large rollerball that was accomplished. 2% viscous lidocaine was inserted urethra and a [address] [place] [address] with continuous bladder irrigation. Patient will need to remain off so although and may need another formal evaluation at a later point time. Anesthesia: GLMA Surgeon: Aristeo Monteiro MD Drains: Yes Packing: No Pathology: none sent Complications: No immediate complications Condition: stable Disposition: PACU
--- NOTE | 2019-11-16 16:22 | PC.NURSE ---
Unable to perform 1600 assessment, patient is off floor in OR at this time.
[2019-11-16] MEDS: ATORVASTATIN 20 MG TABLET PO (22:24)
[2019-11-16] MEDS: carvediloL 12.5 MG TABLET PO (22:25)
[2019-11-16] MEDS: PRAMIPEXOLE 0.5 MG TABLET PO (22:25)
[2019-11-17] VITALS (19 sets, daily range): BP systolic 105–107; BP diastolic 43–62; PULSE 82–113; RESP 12–20; TEMP 35.8–36.6; O2SAT 90–99
[2019-11-17] MEDS: SODIUM CHLORIDE 0.9% IV 1,000 ML 70 ML IV CONT (05:59)
[2019-11-17] MEDS: CENTRAL LINE FLUSH 10 ML IV PUSH ×7 (06:02→22:00)
[2019-11-17] MEDS: CYCLOBENZAPRINE HCL 10 MG TABLET PO (08:21)
[2019-11-17] MEDS: carvediloL 12.5 MG TABLET PO (08:21)
[2019-11-17] MEDS: DULOXETINE 60 MG CAPSULE.DR PO (08:22)
[2019-11-17] MEDS: busPIRone HCL 5 MG TABLET PO ×3 (08:22→17:59)
[2019-11-17] MEDS: LORATADINE 10 MG TABLET PO (08:23)
[2019-11-17] MEDS: EUCERIN CREAM 120 GM JAR 1 APPLIC TOPICAL (08:23)
[2019-11-17] MEDS: RANOLAZINE 500 MG TAB.ER.12H PO ×2 (08:24→21:28)
[2019-11-17] MEDS: PANTOPRAZOLE 40 MG TABLET PO ×2 (08:24→21:23)
[2019-11-17 08:47] LABS: Basophils Percent Auto 0.3 % (0.2-1.2); Eosinophils Absolute Auto 0.2 K/mm3 (0-0.3); Hematocrit 28.2 % (42.0-52.0); Hemoglobin 9.1 g/dL (14.0-18.0); Immature Granulocyte Absolute 0.05 K/mm3 (0.00-0.031); Immature Granulocyte Percent A 0.7 % (0-0.5); Lymphocytes Percent Auto 8.2 % (18.3-44.2); Mean Corpuscular HGB Conc 32.3 g/dl (32-36); Mean Corpuscular Hemoglobin 31.6 pg (26-34); Mean Corpuscular Volume 97.9 fl (80-100); Mean Platelet Volume 10.2 fl (7.4-10.4); Monocytes Absolute Auto 0.6 K/mm3 (0.1-0.6); Monocytes Percent Auto 8.6 % (2.6-8.5); Neutrophils Absolute Auto 5.8 K/mm3 (1.3-6.7); Neutrophils Percent Auto 79.2 % (45.5-73.1); Platelet Count Result 114 k/mm3 (150-375); Red Blood Count 2.88 M/mm3 (4.6-6.20); Red Cell Distribution Width 14.7 % (11.5-14.5); White Blood Count 7.3 K/mm3 (4.5-10.0)
[2019-11-17 08:59] LABS: Alanine Aminotransferase 8 U/L (4-50); Albumin Level 3.2 g/dL (3.5-5.1); Alkaline Phosphatase 78 U/L (38-126); Aspartate Amino Transferase 20 U/L (17-59); Bilirubin,Total 0.3 mg/dL (0.2-1.3); Blood Urea Nitrogen 9 mg/dL (9-20); Calcium 8.3 mg/dL (8.4-10.2); Carbon Dioxide 28 mmol/L (22-30); Chloride 105 mmol/L (98-107); Estimated CRCL calculation 72 ml/min; Estimated Glomerular Filt Rate > 60; Glucose 139 mg/dL (75-110); Potassium 4.3 mmol/L (3.4-5.0); Sodium 135 mmol/L (137-145)
--- NOTE | 2019-11-17 09:31 | P.PNAN_ITS ---
Anes - Prog Note Post-Op Date/Time: 11/17/19 09:31 Cardiovascular status: normal Respiratory status: normal Airway patency: baseline Mental status: baseline Post-Op hydration status: normal Vital Signs: Last Vital Signs Temp 35.8 C L 11/17/19 07:59 Pulse 113 H 11/17/19 08:21 Resp 12 11/17/19 07:59 BP 106/57 L 11/17/19 07:59 Pulse Ox 96 11/17/19 07:59 I/O: Intake & Output 11/16/19 11/17/19 11/17/19 23:59 07:59 15:59 Intake Total 6946 1185 340 Output Total 9187 1500 Balance -1722 -315 340 Laboratory Tests 11/17/19 08:39 11/17/19 08:39 11/17/19 11/17/19 08:39 08:39 WBC 7.3 RBC 2.88 L Hgb 9.1 L Hct 28.2 L MCV 97.9 MCH 31.6 MCHC 32.3 RDW 14.7 H Plt Count 114 L MPV 10.2 Immature Gran % (Auto) 0.7 H Neut % (Auto) 79.2 H Lymph % (Auto) 8.2 L [place] % (Auto) 8.6 H Eos % (Auto) 3.0 Baso % (Auto) 0.3 Lymph # (Auto) 0.60 L [place] # (Auto) 0.6 Eos # (Auto) 0.2 Baso # (Auto) 0.0 Abs Immat Gran (auto) 0.05 H Absolute Neuts (auto) 5.8 Absolute Nucleated RBC 0.0 Nucleated RBC % 0.0 Sodium 135 L Potassium 4.3 Chloride 105 Carbon Dioxide 28 BUN 9 Creatinine 1.00 Estim Creat Clear Calc 72 Estimated GFR > 60 Glucose 139 H Calcium 8.3 L Total Bilirubin 0.3 AST 20 ALT 8 Alkaline Phosphatase 78 Total Protein 6.0 L Albumin 3.2 L Post-procedural complaints: none Patient Feedback: Patient satisfied with anesthetic care.
[2019-11-17] MEDS: polyethylene glycoL 3350 17 GM POWD.PACK PO (10:53)
--- NOTE | 2019-11-17 12:06 | PM.IMPN ---
Progress Note: A&P Assessment and Plan (1) Hemorrhagic shock: Code(s): R57.8 - Other shock Status: Acute Assessment and Plan: Patient was tachycardic and hypotensive on presentation. [place] related to acute blood loss. Stop IV fluids and continue supportive care. Hemoglobin up to 9.1 will continue to monitor. Blood pressure has rebounded also (2) Hematuria: Code(s): R31.9 - Hematuria, unspecified Status: Acute Assessment and Plan: Patient with multiple episodes of hematuria. Related to his known cancer. Urology took to OR 11/15 and evacuated clots and fulgarized lesion as best as could . Continue CBI until clear. (3) Atrial fibrillation: Code(s): I48.91 - Unspecified atrial fibrillation Status: Acute Assessment and Plan: Patient with known history of atrial fibrillation on Xarelto. He is also on carvedilol for rate control. With blood pressure higher and pulse intermittently up but 120 restarted carvedilol at 12.5 q.12 hours 11/15 and back to 25 q12 today. . Continue to hold his Xarelto. (4) Urothelial carcinoma of bladder: Code(s): C67.9 - Malignant neoplasm of bladder, unspecified Status: Acute Assessment and Plan: Patient with long history battling the urothelial carcinoma. He does completed radiation 3 months ago. He states there is plans for repeat chemotherapy. plan is for him to follow-up with Dr. Renner in the clinic after discharge to to start chemotherapy. (5) Anemia: Code(s): D64.9 - Anemia, unspecified Status: Acute Assessment and Plan: Patient with acute blood loss anemia with underlying chronic anemia. Hemoglobin normally runs in the 11-12 range. Earlier this year he has dropped down to the 9-10 range. He is on Xarelto for his AFib. Hemoglobin is drifting down probably because of his recurrent hematuria. Continue to monitor H&H closely and transfuse as necessary. 9.1 today (6) Lung mass: Code(s): R91.8 - Other nonspecific abnormal finding of lung field Status: Acute Assessment and Plan: CT of the chest showing spiculated mass in the right lower lobe. He will need follow-up imaging for this. (7) ERIC (obstructive sleep apnea): Code(s): G47.33 - Obstructive sleep apnea (adult) (pediatric) Status: Acute Assessment and Plan: Patient does not [facility]AP at the [facility] because they were having trouble locating a unit per patient. He would like to start CPAP here which will order. (8) CKD (chronic kidney disease): Code(s): N18.9 - Chronic kidney disease, unspecified Status: Acute Assessment and Plan: Creatinine 1.4 on admission. Baseline creatinine is anywhere from 1 to 1.5 mostly. Suspect patient in baseline range. Will continue to monitor. 1.0 today Subjective Date/time seen: 11/17/19 12:06 Interval history: Date of visit 11/16. 69yo male with AFib and bladder cancer here for gross hematuria. Patient's hgb dropped and patient received 1U of PRBC. No further abdominal pain or cramping. No n/v. No CP or SOB. Eating okay. Hemoglobin stable 9.1 Exam Narrative: Exam Narrative: AF 1o6/58 98 Gen -NARD sitting up in chair Chest - few basilar rhonchi. Otherwise clear CV -irregular and tachycardic. S1-S2. Tele shownig AFib alternating sinus tach Abd -soft. Mild tenderness bilateral lower quadrants - Koo catheter secured and attached to a CBI. Urine is pink in color. Ext -trace woody pedal edema Psych - Nml mood and affect. Skin -multiple small eschars noted bilateral lower extremities in various stages of healing. Objective Data Vital Signs Vital Signs: Vital Signs - 24 hr 11/16/19 14:00 11/16/19 15:10 11/16/19 16:08 Temperature 36.8 C 37.2 C Pulse Rate 98 103 H 125 H Respiratory Rate 22 H 18 Blood Pressure 122/80 115/68 Pulse Oximetry 100 99 11/16/19 16:15 11/16/19 16:30 11/16/19
--- NOTE | 2019-11-17 16:28 | WPDUROPN2 ---
Progress Note: A&P Assessment and Plan (1) Bladder cancer: Qualifiers: Bladder location: unspecified site Qualified Code(s): C67.9 - Malignant neoplasm of bladder, unspecified Code(s): C67.9 - Malignant neoplasm of bladder, unspecified Status: Acute Assessment and Plan: Keep babcock in for now. CBI wean to off when clear. Keep off of anti coagulants until next week. We are doing a repeat Cystoscopy as the cysto yesterday was not able to be visualizing the bladder d/t gross hematuria. (2) Hematuria: Qualifiers: Hematuria type: gross Qualified Code(s): R31.0 - Gross hematuria Code(s): R31.9 - Hematuria, unspecified Status: Acute Subjective Subjective Date/Time Seen: 11/17/19 16:28 POD #1 Cystoscopy with bladder Fulgeration. Review of Systems Respiratory: Respiratory: Reports no additional respiratory complaints Gastrointestinal: Gastrointestinal: Denies abdominal pain, Denies nausea and Denies vomiting Genitourinary: Genitourinary: Reports hematuria Exam Resp: Effort & Inspection: normal respiratory effort Cardio: Rate: regular rate GI: GI Palp: No Tenderness to palpation present (GI) Urinary Catheter: Urinary Catheter: patent and draining and urine dark Extrem: General: edema Objective Data Vital Signs Vital Signs: Vital Signs - 24 hr 11/16/19 16:30 11/16/19 16:45 11/16/19 17:00 Temperature Pulse Rate 124 H 120 H 120 H Respiratory Rate 18 18 20 Blood Pressure 168/78 H 142/80 H Pulse Oximetry 98 98 98 11/16/19 17:18 11/16/19 18:00 11/16/19 19:50 Temperature 97.9 F Pulse Rate 122 H 117 H 112 H Respiratory Rate 20 20 Blood Pressure 136/81 104/60 Pulse Oximetry 99 99 11/16/19 20:00 11/16/19 20:34 11/16/19 20:42 Temperature Pulse Rate 112 H 114 H 100 Respiratory Rate 20 18 17 Blood Pressure Pulse Oximetry 99 97 95 11/16/19 22:00 11/16/19 22:25 11/16/19 23:56 Temperature 97.9 F Pulse Rate 108 H 105 H 110 H Respiratory Rate 18 Blood Pressure 139/73 Pulse Oximetry 98 11/17/19 00:00 11/17/19 02:00 11/17/19 04:00 Temperature Pulse Rate 110 H 106 H 106 H Respiratory Rate 18 18 Blood Pressure Pulse Oximetry 98 98 11/17/19 04:38 11/17/19 06:00 11/17/19 07:59 Temperature 97.9 F 96.4 F L Pulse Rate 113 H 111 H 113 H Respiratory Rate 18 12 Blood Pressure 106/62 106/57 L Pulse Oximetry 94 96 11/17/19 08:00 11/17/19 08:21 11/17/19 10:00 Temperature Pulse Rate 98 113 H 109 H Respiratory Rate Blood Pressure Pulse Oximetry 11/17/19 12:00 11/17/19 12:15 Temperature 96.5 F L Pulse Rate 85 93 Respiratory Rate 12 Blood Pressure 107/43 L Pulse Oximetry 97 Intake/Output Intake/Output: Intake & Output 11/14/19 11/15/19 11/16/19 11/17/19 23:59 23:59 23:59 23:59 Intake Total 0 09847 6128 2004 Output Total 1575 9100 69046 1500 Balance 475 8782 -7009 105 Meds/Results Medications: Active Medications Generic Name Dose Route Start Last Admin Trade Name Freq PRN Reason Stop Dose Admin Acetaminophen 650 mg 11/14/19 11:58 11/15/19 15:23 Tylenol Tablet PO 650 mg Q6H PRN Administration Pain, Mild Hydrocodone Bitart/Acetaminophen 1 tab 11/15/19 10:22 11/17/19 10:48 [place] 5-325 Mg PO 1 tab Q8H PRN Administration Moderate Pain Al Hydrox/Mg Hydrox/Simethicone 5 ml 11/14/19 11:58 Mylanta PO TID PRN Indigestion Albuterol 2.5 mg 11/14/19 11:58 Albuterol Sulf Neb 2.5 Mg/3 Ml INHALATION Q4H PRN Shortness Of Breath Atorvastatin Calcium 20 mg 11/14/19 21:00 11/16/19 22:24 Lipitor PO 20 mg HS TEREZA Administration Benzonatate 100 mg 11/14/19 11:58 Tessalon Perles PO TID PRN Cough Budesonide/Formoterol Fumarate 2 puff 11/14/19 20:00 11/16/19 20:34 Symbicort 80-4.5 Mcg (*Sp) Inhaler INHALATION 2 puff Q12HRT TEREZA Administration Buspirone HCl 5 mg 11/14/19 1
--- NOTE | 2019-11-17 19:19 | PC.NURSE ---
Pt moved to room 342 via bed on 11-17-19 at 1908. Report called to Isabel CYR. Belonging list verified.
--- NOTE | 2019-11-17 19:21 | PC.NURSE ---
This patient, Jaskaran Andrews, was received from [facility] on 11/17/19 at 1922. Personal belongings list checked and signed. Patient/family oriented to unit policies and routines
--- NOTE | 2019-11-17 19:22 | PC.NURSE ---
Patient received from IMU at 1910. Per IMU RN, patient pulled out port access before transferring over to our unit. On arrival, patient does not have any access. IV antibiotic was due to be given at 1900 that has also not been given. Due to the previous reasons, patients antibiotic will be delayed. Will obtain order to replace port access from hospitalist.
[2019-11-17] MEDS: ATORVASTATIN 20 MG TABLET PO (21:23)
[2019-11-17] MEDS: carvediloL 25 MG TABLET PO (21:23)
[2019-11-17] MEDS: PRAMIPEXOLE 0.5 MG TABLET PO (21:23)
[2019-11-18] VITALS (11 sets, daily range): BP systolic 100–113; BP diastolic 55–64; PULSE 63–92; RESP 14–20; TEMP 36.2–36.8; O2SAT 95–98
[2019-11-18 05:38] LABS: Basophils Percent Auto 0.2 % (0.2-1.2); Eosinophils Absolute Auto 0.2 K/mm3 (0-0.3); Hematocrit 27.1 % (42.0-52.0); Hemoglobin 8.6 g/dL (14.0-18.0); Immature Granulocyte Absolute 0.04 K/mm3 (0.00-0.031); Immature Granulocyte Percent A 0.6 % (0-0.5); Lymphocytes Absolute Auto 0.37 K/mm3 (0.9-3.2); Lymphocytes Percent Auto 5.8 % (18.3-44.2); Mean Corpuscular HGB Conc 31.7 g/dl (32-36); Mean Corpuscular Volume 97.8 fl (80-100); Mean Platelet Volume 10.4 fl (7.4-10.4); Monocytes Absolute Auto 0.5 K/mm3 (0.1-0.6); Monocytes Percent Auto 8.4 % (2.6-8.5); Neutrophils Absolute Auto 5.2 K/mm3 (1.3-6.7); Platelet Count Result 103 k/mm3 (150-375); Red Blood Count 2.77 M/mm3 (4.6-6.20); Red Cell Distribution Width 14.6 % (11.5-14.5); White Blood Count 6.3 K/mm3 (4.5-10.0)
[2019-11-18 05:46] LABS: Blood Urea Nitrogen 11 mg/dL (9-20); Calcium 8.2 mg/dL (8.4-10.2); Carbon Dioxide 29 mmol/L (22-30); Chloride 102 mmol/L (98-107); Estimated CRCL calculation 78 ml/min; Estimated Glomerular Filt Rate > 60; Glucose 128 mg/dL (75-110); Potassium 4.2 mmol/L (3.4-5.0); Sodium 135 mmol/L (137-145)
[2019-11-18] MEDS: CENTRAL LINE FLUSH 10 ML IV PUSH ×4 (05:53→20:11)
[2019-11-18] MEDS: PANTOPRAZOLE 40 MG TABLET PO ×2 (08:51→20:11)
[2019-11-18] MEDS: DULOXETINE 60 MG CAPSULE.DR PO (08:51)
[2019-11-18] MEDS: carvediloL 25 MG TABLET PO ×2 (08:52→20:10)
[2019-11-18] MEDS: RANOLAZINE 500 MG TAB.ER.12H PO ×2 (08:52→20:11)
[2019-11-18] MEDS: FERROUS SULFATE 324 MG TABLET PO (08:52)
[2019-11-18] MEDS: busPIRone HCL 5 MG TABLET PO ×3 (08:53→16:21)
[2019-11-18] MEDS: LORATADINE 10 MG TABLET PO (08:53)
[2019-11-18] MEDS: EUCERIN CREAM 120 GM JAR 1 APPLIC TOPICAL (08:54)
[2019-11-18] MEDS: CYCLOBENZAPRINE HCL 10 MG TABLET PO ×2 (08:57→16:59)
[2019-11-18] MEDS: ACETAMINOPHEN 325 MG TABLET 650 MG PO (12:27)
--- NOTE | 2019-11-18 12:35 | WPDUROPN2 ---
Progress Note: A&P Assessment and Plan (1) Bladder cancer: Qualifiers: Bladder location: unspecified site Qualified Code(s): C67.9 - Malignant neoplasm of bladder, unspecified Code(s): C67.9 - Malignant neoplasm of bladder, unspecified Status: Acute Assessment and Plan: Wean CBI to off, irrigate babcock for clots PRN. If urine is clear tomorrow off CBI, ok to discharge home tomorrow with babcock. He will have a repeat cysto on Friday next week and needs to stay off anticoagulants until then. (2) Hematuria: Code(s): R31.9 - Hematuria, unspecified Status: Acute Subjective Subjective Date/Time Seen: 11/18/19 12:35 POD #2 Cystoscopy with bladder Fulgeration. Hematuria improving, pink in color with small clots passing on CBI. Review of Systems Respiratory: Respiratory: Reports no additional respiratory complaints Gastrointestinal: Gastrointestinal: Denies abdominal pain, Denies nausea and Denies vomiting Genitourinary: Genitourinary: Reports hematuria Exam Resp: Effort & Inspection: normal respiratory effort Cardio: Rate: regular rate GI: GI Palp: Yes Soft to palpation and No Tenderness to palpation present (GI) Urinary Catheter: Urinary Catheter: patent and draining, urine pink and urine with clots Extrem: General: no edema Objective Data Vital Signs Vital Signs: Vital Signs - 24 hr 11/17/19 14:00 11/17/19 16:00 11/17/19 18:00 Temperature Pulse Rate 93 99 98 Respiratory Rate Blood Pressure Pulse Oximetry 11/17/19 20:55 11/17/19 21:00 11/17/19 21:12 Temperature 97.4 F L Pulse Rate 82 92 88 Respiratory Rate 20 14 16 Blood Pressure 105/52 L Pulse Oximetry 95 96 99 11/17/19 21:23 11/17/19 21:50 11/18/19 00:33 Temperature 97.2 F L Pulse Rate 88 90 92 Respiratory Rate 13 14 Blood Pressure 100/61 Pulse Oximetry 90 96 11/18/19 02:52 11/18/19 05:17 11/18/19 08:44 Temperature 97.2 F L Pulse Rate 63 70 Respiratory Rate 16 18 Blood Pressure 106/61 Pulse Oximetry 98 97 96 11/18/19 08:52 Temperature Pulse Rate 84 Respiratory Rate Blood Pressure Pulse Oximetry Intake/Output Intake/Output: Intake & Output 11/15/19 11/16/19 11/17/19 11/18/19 23:59 23:59 23:59 23:59 Intake Total 82828 7978 7575 3730 Output Total 9100 2794333 9191 0670 Balance 8232 -5019 2024 Meds/Results Medications: Active Medications Generic Name Dose Route Start Last Admin Trade Name Freq PRN Reason Stop Dose Admin Acetaminophen 650 mg 11/14/19 11:58 11/18/19 12:27 Tylenol Tablet PO 650 mg Q6H PRN Administration Pain, Mild Hydrocodone Bitart/Acetaminophen 1 tab 11/15/19 10:22 11/18/19 08:56 [place] 5-325 Mg PO 1 tab Q8H PRN Administration Moderate Pain Al Hydrox/Mg Hydrox/Simethicone 5 ml 11/14/19 11:58 Mylanta PO TID PRN Indigestion Albuterol 2.5 mg 11/14/19 11:58 Albuterol Sulf Neb 2.5 Mg/3 Ml INHALATION Q4H PRN Shortness Of Breath Atorvastatin Calcium 20 mg 11/14/19 21:00 11/17/19 21:23 Lipitor PO 20 mg HS TEREZA Administration Benzonatate 100 mg 11/14/19 11:58 Tessalon Perles PO TID PRN Cough Budesonide/Formoterol Fumarate 2 puff 11/14/19 20:00 11/18/19 08:42 Symbicort 80-4.5 Mcg (*Sp) Inhaler INHALATION 2 puff Q12HRT TEREZA Administration Buspirone HCl 5 mg 11/14/19 13:00 11/18/19 12:25 Buspar PO 5 mg TID TEREZA Administration Carvedilol 25 mg 11/17/19 21:00 11/18/19 08:52 Coreg PO 25 mg Q12HR TEREZA Administration Cyclobenzaprine HCl 10 mg 11/14/19 11:58 11/18/19 08:57 Flexeril PO 10 mg TID PRN Administration Spasms Duloxetine HCl 60 mg 11/14/19 12:10 11/18/19 08:51 Cymbalta PO 60 mg DAILY TEREZA Administration Fentanyl 25 mcg 11/16/19 09:00 11/16/19 08:41 Duragesic 25 Mcg Patch TRANSDERM 25 mcg Q72HR TEREZA Administration Ferrous Sulfate 324 mg 11/14/19 09:
--- NOTE | 2019-11-18 18:24 | PM.IMPN ---
Progress Note: A&P Assessment and Plan (1) Hemorrhagic shock: Code(s): R57.8 - Other shock Status: Acute Assessment and Plan: Patient was tachycardic and hypotensive on presentation. [place] related to acute blood loss. . Hemoglobin up to 8.6 will continue to monitor. Blood pressure has rebounded also (2) Hematuria: Code(s): R31.9 - Hematuria, unspecified Status: Acute Assessment and Plan: Patient with multiple episodes of hematuria. Related to his known cancer. Urology took to OR 11/15 and evacuated clots and fulgarized lesion as best as could . Continue CBI today and will stop per Urology and what for further clotting. (3) Atrial fibrillation: Code(s): I48.91 - Unspecified atrial fibrillation Status: Acute Assessment and Plan: Patient with known history of atrial fibrillation on Xarelto. He is also on carvedilol for rate control. With blood pressure higher and pulse intermittently up but 120 restarted carvedilol at 12.5 q.12 hours 11/15 and back to 25 q12 11/16. Rate well controlled now. Continue to hold his Xarelto. (4) Urothelial carcinoma of bladder: Code(s): C67.9 - Malignant neoplasm of bladder, unspecified Status: Acute Assessment and Plan: Patient with long history battling the urothelial carcinoma. He does completed radiation 3 months ago. He states there is plans for repeat chemotherapy. plan is for him to follow-up with Dr. Renner in the clinic after discharge to to start chemotherapy. (5) Anemia: Code(s): D64.9 - Anemia, unspecified Status: Acute Assessment and Plan: Patient with acute blood loss anemia with underlying chronic anemia. Hemoglobin normally runs in the 11-12 range. Earlier this year he has dropped down to the 9-10 range. He is on Xarelto for his AFib. Hemoglobin is drifting down probably because of his recurrent hematuria. Continue to monitor H&H closely and transfuse as necessary. 98.6 today (6) Lung mass: Code(s): R91.8 - Other nonspecific abnormal finding of lung field Status: Acute Assessment and Plan: CT of the chest showing spiculated mass in the right lower lobe. He will need follow-up imaging for this. (7) ERIC (obstructive sleep apnea): Code(s): G47.33 - Obstructive sleep apnea (adult) (pediatric) Status: Acute Assessment and Plan: Patient does not wear CPAP at the [facility] because they were having trouble locating a unit per patient. He would like to start CPAP here which will order. (8) CKD (chronic kidney disease): Code(s): N18.9 - Chronic kidney disease, unspecified Status: Acute Assessment and Plan: Creatinine 1.4 on admission. Baseline creatinine is anywhere from 1 to 1.5 mostly. Suspect patient in baseline range. Will continue to monitor. 0.9 today Subjective Date/time seen: 11/18/19 18:24 Interval history: Date of visit 11/17. 69yo male with AFib and bladder cancer here for gross hematuria. Patient's hgb dropped and patient received 1U of PRBC. No further abdominal pain or cramping. No n/v. No CP or SOB. Eating okay. Hemoglobin stable 8.6 Exam Narrative: Exam Narrative: AF 110/64 80 Gen -NARD sitting up in chair Chest - few basilar rhonchi. Otherwise clear CV -irregular . S1-S2. Abd -soft. - Koo catheter secured and attached to a CBI. Urine is pink in color. Ext -trace woody pedal edema Psych - Nml mood and affect. Skin -multiple small eschars noted bilateral lower extremities in various stages of healing. Objective Data Vital Signs Vital Signs: Vital Signs - 24 hr 11/17/19 20:55 11/17/19 21:00 11/17/19 21:12 Temperature 36.3 C L Pulse Rate 82 92 88 Respiratory Rate 20 14 16 Blood Pressure 105/52 L Pulse Oximetry 95 96 99 11/17/19 21:23 11/17/19 21:50 11/18/19 00:33 Temperature 36.2 C L Pulse Rate 88 90 92 Respiratory Rate 13 14 Blo
[2019-11-18] MEDS: PRAMIPEXOLE 0.5 MG TABLET PO (20:11)
[2019-11-18] MEDS: ATORVASTATIN 20 MG TABLET PO (20:11)
[2019-11-18 22:36] LABS: SARS-CoV-2 RNA PCR Negative
[2019-11-19 02:12] VITALS: PULSE 70; RESP 17; O2SAT 98
[2019-11-19 04:42] LABS: Basophils Percent Auto 0.2 % (0.2-1.2); Eosinophils Absolute Auto 0.2 K/mm3 (0-0.3); Eosinophils Percent Auto 3.6 % (0-4.4); Hematocrit 27.5 % (42.0-52.0); Hemoglobin 8.7 g/dL (14.0-18.0); Immature Granulocyte Absolute 0.05 K/mm3 (0.00-0.031); Immature Granulocyte Percent A 0.9 % (0-0.5); Lymphocytes Absolute Auto 0.45 K/mm3 (0.9-3.2); Mean Corpuscular HGB Conc 31.6 g/dl (32-36); Mean Corpuscular Hemoglobin 30.9 pg (26-34); Mean Corpuscular Volume 97.5 fl (80-100); Mean Platelet Volume 10.1 fl (7.4-10.4); Monocytes Absolute Auto 0.6 K/mm3 (0.1-0.6); Monocytes Percent Auto 10.3 % (2.6-8.5); Neutrophils Absolute Auto 4.3 K/mm3 (1.3-6.7); Platelet Count Result 114 k/mm3 (150-375); Red Blood Count 2.82 M/mm3 (4.6-6.20); Red Cell Distribution Width 14.6 % (11.5-14.5); White Blood Count 5.6 K/mm3 (4.5-10.0)
[2019-11-19 04:53] LABS: Blood Urea Nitrogen 11 mg/dL (9-20); Calcium 8.3 mg/dL (8.4-10.2); Carbon Dioxide 27 mmol/L (22-30); Chloride 102 mmol/L (98-107); Estimated CRCL calculation 78 ml/min; Estimated Glomerular Filt Rate > 60; Glucose 112 mg/dL (75-110); Potassium 4.3 mmol/L (3.4-5.0); Sodium 135 mmol/L (137-145)
[2019-11-19 05:05] VITALS: BP 133/64; PULSE 87; RESP 16; TEMP 36.3; O2SAT 94
[2019-11-19] MEDS: CENTRAL LINE FLUSH 20 ML IV PUSH (05:21)
[2019-11-19] MEDS: CENTRAL LINE FLUSH 10 ML IV PUSH (05:21)
[2019-11-19 07:03] VITALS: O2SAT 92
[2019-11-19 09:26] VITALS: PULSE 94
[2019-11-19] MEDS: carvediloL 25 MG TABLET PO (09:26)
[2019-11-19] MEDS: busPIRone HCL 5 MG TABLET PO ×2 (09:26→12:05)
[2019-11-19] MEDS: DULOXETINE 60 MG CAPSULE.DR PO (09:26)
[2019-11-19] MEDS: LORATADINE 10 MG TABLET PO (09:27)
[2019-11-19] MEDS: EUCERIN CREAM 120 GM JAR 1 APPLIC TOPICAL (09:27)
[2019-11-19] MEDS: FENTANYL 25 MCG/HR PATCH TRANSDERM (09:27)
[2019-11-19] MEDS: RANOLAZINE 500 MG TAB.ER.12H PO (09:28)
[2019-11-19] MEDS: polyethylene glycoL 3350 17 GM POWD.PACK PO (09:28)
[2019-11-19] MEDS: PANTOPRAZOLE 40 MG TABLET PO (09:28)
[2019-11-19] MEDS: HEPARIN SOD FLUSH 500 UNITS/5 ML SYRINGE IV PUSH (11:46)
--- NOTE | 2019-11-19 11:51 | WPDUROPN2 ---
Progress Note: A&P Additional Plan D/c with catheter. Follow up planned at urology on Friday for cystoscopy. Subjective Subjective Date/Time Seen: 11/19/19 11:51 Interval history: Urine has cleared. Off CBI Exam Const: General: no acute distress Urinary Catheter: Urinary Catheter: patent and draining Objective Data Vital Signs Vital Signs: Vital Signs - 24 hr 11/18/19 14:00 11/18/19 20:07 11/18/19 20:10 Temperature 36.7 C 36.8 C Pulse Rate 80 88 86 Respiratory Rate 20 16 Blood Pressure 110/64 113/55 L Pulse Oximetry 97 95 11/18/19 20:15 11/18/19 20:16 11/18/19 22:31 Temperature Pulse Rate 88 69 Respiratory Rate 20 14 Blood Pressure Pulse Oximetry 95 97 11/19/19 02:12 11/19/19 05:05 11/19/19 07:03 Temperature 36.3 C L Pulse Rate 70 87 Respiratory Rate 17 16 Blood Pressure 133/64 Pulse Oximetry 98 94 92 11/19/19 09:26 Temperature Pulse Rate 94 Respiratory Rate Blood Pressure Pulse Oximetry Intake/Output Intake/Output: Intake & Output 11/16/19 11/17/19 11/18/19 11/19/19 23:59 23:59 23:59 23:59 Intake Total 7978 7575 5360 1150 Output Total 48459 5550 5240 1100 Balance -3072 2025 120 50 Meds/Results Medications: Active Medications Generic Name Dose Route Start Last Admin Trade Name Freq PRN Reason Stop Dose Admin Acetaminophen 650 mg 11/14/19 11:58 11/18/19 12:27 Tylenol Tablet PO 650 mg Q6H PRN Administration Pain, Mild Hydrocodone Bitart/Acetaminophen 1 tab 11/15/19 10:22 11/19/19 05:40 [place] 5-325 Mg PO 1 tab Q8H PRN Administration Moderate Pain Al Hydrox/Mg Hydrox/Simethicone 5 ml 11/14/19 11:58 Mylanta PO TID PRN Indigestion Albuterol 2.5 mg 11/14/19 11:58 Albuterol Sulf Neb 2.5 Mg/3 Ml INHALATION Q4H PRN Shortness Of Breath Atorvastatin Calcium 20 mg 11/14/19 21:00 11/18/19 20:11 Lipitor PO 20 mg HS TEREZA Administration Benzonatate 100 mg 11/14/19 11:58 Tessalon Perles PO TID PRN Cough Budesonide/Formoterol Fumarate 2 puff 11/14/19 20:00 11/19/19 06:59 Symbicort 80-4.5 Mcg (*Sp) Inhaler INHALATION 2 puff Q12HRT TEREZA Administration Buspirone HCl 5 mg 11/14/19 13:00 11/19/19 09:26 Buspar PO 5 mg TID TEREZA Administration Carvedilol 25 mg 11/17/19 21:00 11/19/19 09:26 Coreg PO 25 mg Q12HR TEREZA Administration Cyclobenzaprine HCl 10 mg 11/14/19 11:58 11/18/19 16:59 Flexeril PO 10 mg TID PRN Administration Spasms Duloxetine HCl 60 mg 11/14/19 12:10 11/19/19 09:26 Cymbalta PO 60 mg DAILY TEREZA Administration Fentanyl 25 mcg 11/16/19 09:00 11/19/19 09:27 Duragesic 25 Mcg Patch TRANSDERM 25 mcg Q72HR TEREZA Administration Ferrous Sulfate 324 mg 11/14/19 09:00 11/18/19 08:52 Ferrous Sulfate PO 324 mg Q48HR TEREZA Administration Heparin Sodium (Porcine) 500 units 11/15/19 07:25 11/19/19 11:46 Heparin Sod Flush 100 Units/Ml IV PUSH 500 units PRN PRN Administration see comments below Ceftriaxone Sodium/Dextrose 1 gm in 50 mls @ 100 mls/hr 11/15/19 19:00 11/18/19 18:36 Rocephin 1 Gm/D5w 50 Ml IVPB Infused Q24H [facility] Infusion Loratadine 10 mg 11/14/19 12:10 11/19/19 09:27 Claritin PO 10 mg DAILY [facility] Administration Multi-Ingred Cream/Lotion/Oil/Oint 1 applic 11/16/19 09:00 11/19/19 09:27 Minerin Creme TOPICAL 1 applic QAM [facility] Administration Nitroglycerin 0.4 mg 11/14/19 11:58 Nitrostat Subl 0.4 Mg (1/150) SUBLINGUAL Q5MIN PRN Chest Pain Pantoprazole Sodium 40 mg 11/14/19 21:00 07/03/20 09:28 Protonix PO 40 mg Q12HR TEREZA Administration Polyethylene Glycol 17 gm 11/14/19 09:00 11/19/19 09:28 Miralax PO 17 gm DAILY TEREZA Administration Pramipexole Dihydrochloride 0.5 mg 11/14/19 21:00 11/18/19 20:11 Mirapex PO 0.5 mg HS TEREZA Administration Prochlorperazine Maleate 10 mg 11/14/19 11:58
--- NOTE | 2019-11-23 10:28 | PM.DS ---
DS: Admitting Diagnosis Admitting Diagnosis Admitting Diagnosis: Malignant neoplasm of bladder, unspecified DS: Discharge Diagnosis Discharge Diagnosis (1) Hemorrhagic shock: Code(s): R57.8 - Other shock Status: Acute Assessment and Plan: Patient was tachycardic and hypotensive on presentation. [place] related to acute blood loss. . Hemoglobin up to 8.7 at disvharge. Blood pressure has rebounded also (2) Hematuria: Code(s): R31.9 - Hematuria, unspecified Status: Acute Assessment and Plan: Patient with multiple episodes of hematuria. Related to his known cancer. Urology took to OR 11/15 and evacuated clots and fulgarized lesion as best as could . Urine cleared with CBI. Koo left in at discharged and will return for repeat cysto 11/22 off of xarelto (3) Atrial fibrillation: Code(s): I48.91 - Unspecified atrial fibrillation Status: Acute Assessment and Plan: Patient with known history of atrial fibrillation on Xarelto. He is also on carvedilol for rate control. With blood pressure higher and pulse intermittently up but 120 restarted carvedilol at 12.5 q.12 hours 11/15 and back to 25 q12 11/16. Rate well controlled now. Continue to hold his Xarelto.untill after repeat cysto (4) Urothelial carcinoma of bladder: Code(s): C67.9 - Malignant neoplasm of bladder, unspecified Status: Acute Assessment and Plan: Patient with long history battling the urothelial carcinoma. He completed radiation 3 months ago. He states there is plans for repeat chemotherapy. plan is for him to follow-up with Dr. Renner in the clinic after discharge to to start chemotherapy. (5) Anemia: Code(s): D64.9 - Anemia, unspecified Status: Acute Assessment and Plan: Patient with acute blood loss anemia with underlying chronic anemia. Hemoglobin normally runs in the 11-12 range. Earlier this year he has dropped down to the 9-10 range. He is on Xarelto for his AFib. Hemoglobin is drifted down because of his recurrent hematuria. Continue to monitor H&H closely and transfuse as necessary. As above 8.7 at discharge (6) Lung mass: Code(s): R91.8 - Other nonspecific abnormal finding of lung field Status: Acute Assessment and Plan: CT of the chest showing spiculated mass in the right lower lobe. He will need follow-up imaging for this. (7) ERIC (obstructive sleep apnea): Code(s): G47.33 - Obstructive sleep apnea (adult) (pediatric) Status: Acute Assessment and Plan: Patient does not wear CPAP at the retirement because they were having trouble locating a unit per patient. He would like to start CPAP here which will order. (8) CKD (chronic kidney disease): Code(s): N18.9 - Chronic kidney disease, unspecified Status: Acute Assessment and Plan: Creatinine 1.4 on admission. Baseline creatinine is anywhere from 1 to 1.5 mostly. Suspect patient in baseline range. Will continue to monitor. 0.9 at discharge DS: Summary Hospital Course Hospital Course: 69-year-old white male with known bladder carcinoma admitted with hematuria. xarelto for which she takes for AFib was held and after CBI underwent cystoscopy with fulguration.. Poor visualization due to continued oozing, bladder wall. was discharged with Koo catheter off Xarelto to returned 11/22 for repeat cysto. Hemoglobin 8.7 at discharge and creatinine 0.9 Time Spent with Patient Time attestation: Total time spent providing and/or coordinating discharge services:35 minutes Exam Narrative: Exam Narrative: Condition on discharge blood pressure 130/64 pulse 86 saturating 94% on 2 L nasal cannula afebrile lungs clear CV regular rate rhythm abdomen soft nontender Koo catheter in place draining clear slightly pink tinged urine extremities without edema neuro alert pleasant cooperative Discharge Plan Discharge Attending
== END 2019-11-19 13:15 | DRG 668 ==
LOC: ANHED 07:14 → ANHIMU 09:10 → ANH3MED 11-18 23:09 → ANHIMU 11-23 13:08
PROVIDERS: Internal Medicine; Urology; Admitting Provider Internal Medicine; Emergency Provider Emergency Medicine; PCP Internal Medicine; Visit Provider Internal Medicine
PROC: 0TCB8ZZ Extirpation of Matter from Bladder, Via Natural or Artificial Opening Endoscopic (ICD-10-PCS; CPT 52001; principal; 2019-11-16 16:00)
DX: C67.9 Malignant neoplasm of bladder, unspecified (principal); R57.8 Other shock; I13.0 Hypertensive heart and chronic kidney disease with heart failure and stage 1 through stage 4 chronic kidney disease, or unspecified chronic kidney disease; I50.32 Chronic diastolic (congestive) heart failure; D62 Acute posthemorrhagic anemia; D69.6 Thrombocytopenia, unspecified; R31.0 Gross hematuria; Z11.59 Encounter for screening for other viral diseases; E11.22 Type 2 diabetes mellitus with diabetic chronic kidney disease; N18.9 Chronic kidney disease, unspecified; I48.91 Unspecified atrial fibrillation; E11.42 Type 2 diabetes mellitus with diabetic polyneuropathy; E11.51 Type 2 diabetes mellitus with diabetic peripheral angiopathy without gangrene; R91.8 Other nonspecific abnormal finding of lung field; G47.33 Obstructive sleep apnea (adult) (pediatric); J44.9 Chronic obstructive pulmonary disease, unspecified; F17.210 Nicotine dependence, cigarettes, uncomplicated; Z66 Do not resuscitate; Z79.01 Long term (current) use of anticoagulants; Z79.82 Long term (current) use of aspirin; Z79.899 Other long term (current) drug therapy; Z86.711 Personal history of pulmonary embolism; Z86.73 Personal history of transient ischemic attack (TIA), and cerebral infarction without residual deficits; Z90.5 Acquired absence of kidney
CPT/HCPCS: 36415; 36430; 74176; 80048; 80053; 83605; 85014; 85018; 85025; 85027; 85610; 85730; 86850; 86900; 86901; 86923; 87635; 94002; 94640; 96361; 96365; 97110; 97116; 97161; 99285; A9270; C9803; J0696; J2405; J7030; J7120; P9016; U0003

== ENCOUNTER 2019-11-23 10:31 | Inpatient (IN) | payer MEDICARE, MEDICAID, SELFPAY ==
[2019-11-22 15:43] VITALS: BMI 29.2
[2019-11-23] VITALS (18 sets, daily range): BP systolic 83–129; BP diastolic 47–83; PULSE 92–144; RESP 12–20; TEMP 36.1–37.1; O2SAT 90–100
--- NOTE | ~2019-11-23 | XR_ITS ---
XR chest 2V 11/25/2019 19:03 Indication: Shortness of breath with hypoxia Procedure: 2 view chest Comparison: Comparison to multiple prior studies sequentially, with oldest reviewed study dated 05/31. Findings: Bibasilar airspace disease, compatible with pneumonia. Small left pleural effusion. Cardiom egaly. Portacatheter tip in the SVC. Status post median sternotomy for CABG. No pneumothorax. No acut e osseous abnormality. Impression: 1: Bibasilar airspace disease, compatible with pneumonia. 2: Cardiomegaly. Reviewed, dictated and finalized at location A. Impression: 1: Bibasilar airspace disease, compatible with pneumonia. 2: Cardiomegaly.
[2019-11-23] MEDS: LACTATED RINGERS 1,000 ML 30 ML IV CONT (06:50)
--- NOTE | 2019-11-23 06:51 | WPDANESEFPP ---
Anes - Eval Final PreProcedure Day of Procedure 11/23/19 06:51 Patient weight: overweight Heart: irregular rhythm Lungs: clear to auscultation Airway: Mallampati scale class II Neurological: alert and oriented Last oral intake: >/= 8 hours ASA classification: IV Emergent: no Anesthetic plan: proceed Anesthesia type and monitoring: general LMA Informed Consent: The patient's anesthetic plan and its attendant risks and benefits were discussed with the patient/family/POA. Questions were solicited and answers provided to the satisfaction of the patient/family/POA.
--- NOTE | 2019-11-23 07:17 | WPDHPUPDATE1 ---
History and Physical Update Update Date/Time: 11/23/19 07:17 History and Physical has been reviewed, including an updated exam of the patient. There are NO changes in the patient's condition. Risks, benefits, and alternatives have been discussed and questions answered. Patient agrees to proceed with procedure.
[2019-11-23] MEDS: ceFAZolin 2 GM/D5W 50 ML 2 GM/50 ML BAG IVPB (07:23)
[2019-11-23] MEDS: LIDOCAINE HCL 2% GEL UROJET 10 ML PKG MUCOUS MEM (07:44)
--- NOTE | 2019-11-23 08:29 | SUR.OPER ---
Ebl 50ml
--- NOTE | 2019-11-23 08:32 | P.OP_ITS ---
Procedure Note - Detailed Date of procedure: 11/23/19 Pre-op diagnosis: Bladder Tumor Post-op diagnosis: same (2. Significant clot) Procedure performed: Cystoscopy with clot evacuation. Transurethral resection of bladder tumor with fulguration Description of procedure: Patient is taken to the operative suite and correctly identified. Once anesthesia was obtained was placed in the dorsal lithotomy position and prepped and draped in the usual sterile fashion. Twenty-four [place] resectoscope sheath was inserted into the bladder. He has significant amount of clot which took quite a bit of time to evacuate as it was adherent to the bladder. Once the clot was extracted the bladder was inspected. He has significant amount of irregularity spread to merely along the right floor lateral wall anterior wall and posterior wall of bladder. We went and resected some of this tissue and sent for analysis. We then used a rollerball for hemostasis. 2% viscous lidocaine was inserted to the urethra to [address] [place] [address] was placed with 15 cc in the balloon. It was connected to continuous bladder irrigation. He is taken recovery stable condition. If his urine clears will be discharged home with a Koo catheter otherwise be admitted for CBI. His long- term care is complicated by his poor medical status. My feeling is that this patient truly would need a cystectomy for long-term control of the vena tolerated. Will await path report. Anesthesia: GLMA Surgeon: Aristeo Monteiro MD Drains: Yes Packing: No Pathology: yes Complications: No immediate complications Condition: stable Disposition: PACU
[2019-11-23] MEDS: MORPHINE SULFATE 2 MG/ML INJ IV PUSH ×3 (12:46→23:12)
[2019-11-23] MEDS: busPIRone HCL 5 MG TABLET PO ×2 (13:42→19:04)
[2019-11-23] MEDS: DEXTROSE 5%/LACTATED RINGERS 1,000 ML 125 ML IV CONT ×2 (13:45→23:06)
--- NOTE | 2019-11-23 18:33 | ADMGEN ---
This patient, Jaskaran Andrews, was admitted to [facility] Surg Room 321-. Patient/family oriented to hospital policies and general routines including ID bracelet, bed and alarms, visiting hours, pain management, procedures, bathroom and other care routines, personal items, smoking policy, room service/diet, and visiting hours. Valuables list has been completed. Information on how to activate the Rapid Response Team has been discussed. Patient/Family are encouraged to report perceived risks to care and to ask questions if they do not understand what they are told or what they should do.
[2019-11-23] MEDS: DOCUSATE SODIUM 100 MG CAPSULE PO (19:04)
[2019-11-23] MEDS: AMITRIPTYLINE HCL 25 MG TABLET 50 MG PO (23:01)
[2019-11-23] MEDS: ATORVASTATIN 20 MG TABLET PO (23:03)
[2019-11-23] MEDS: carvediloL 25 MG TABLET PO (23:03)
[2019-11-23] MEDS: PANTOPRAZOLE 40 MG TABLET PO (23:04)
[2019-11-23] MEDS: PRAMIPEXOLE 0.5 MG TABLET PO (23:05)
[2019-11-23] MEDS: RANOLAZINE 500 MG TAB.ER.12H PO (23:05)
[2019-11-23] MEDS: WATER FOR IRRIGATION, STERILE 1,000 ML BOTTLE 1000 ML (23:05)
[2019-11-23] MEDS: PRAZOSIN HCL 5 MG CAPSULE PO (23:06)
[2019-11-23] MEDS: FENTANYL 25 MCG/HR PATCH TRANSDERM (23:06)
[2019-11-24] VITALS (17 sets, daily range): BP systolic 90–116; BP diastolic 43–68; PULSE 62–106; RESP 16–22; TEMP 36.2–36.9; O2SAT 91–99
--- NOTE | 2019-11-24 00:39 | PM.IMCN ---
Assessment and Plan Assessment and plan (1) Hematuria: Qualifiers: Hematuria type: unspecified type Qualified Code(s): R31.9 - Hematuria, unspecified Code(s): R31.9 - Hematuria, unspecified Status: Acute Assessment and Plan: Continue Urology recommendations. Monitor H/H, transfuse prn. (2) Atrial fibrillation: Qualifiers: Atrial fibrillation type: unspecified Qualified Code(s): I48.91 - Unspecified atrial fibrillation Code(s): I48.91 - Unspecified atrial fibrillation Status: Chronic Assessment and Plan: Continue beta irma. Resume Xarelto once Urology has completed the procedures necessary for the patient's hematuria. (3) Bladder cancer: Qualifiers: Bladder location: unspecified site Qualified Code(s): C67.9 - Malignant neoplasm of bladder, unspecified Code(s): C67.9 - Malignant neoplasm of bladder, unspecified Status: Chronic Assessment and Plan: Continue Heme/Onc recommendations for urothelial carcinoma. (4) ERIC (obstructive sleep apnea): Code(s): G47.33 - Obstructive sleep apnea (adult) (pediatric) Status: Chronic Assessment and Plan: Continue CPAP. (5) CKD (chronic kidney disease): Qualifiers: Chronic kidney disease stage: stage 3 (moderate) Qualified Code(s): N18.3 - Chronic kidney disease, stage 3 (moderate) Code(s): N18.9 - Chronic kidney disease, unspecified Status: Chronic Assessment and Plan: Cr appears to be at baseline. Monitor renal function. Avoid nephrotoxic agents. (6) Hypertension: Qualifiers: Hypertension type: unspecified Qualified Code(s): I10 - Essential (primary) hypertension Code(s): I10 - Essential (primary) hypertension Status: Chronic Assessment and Plan: stable. Monitor blood pressure. Continue home beta irma. (7) Diabetes: Qualifiers: Diabetes mellitus type: type 2 Diabetes mellitus fci insulin use: without fci use Diabetes mellitus complication status: without complication Qualified Code(s): E11.9 - Type 2 diabetes mellitus without complications Code(s): E11.9 - Type 2 diabetes mellitus without complications Status: Chronic Assessment and Plan: Accuchecks, SSI coverage, Hypoglycemic protocol. Continue home oral hypoglycemics. (8) Hyperlipidemia: Qualifiers: Hyperlipidemia type: unspecified Qualified Code(s): E78.5 - Hyperlipidemia, unspecified Code(s): E78.5 - Hyperlipidemia, unspecified Status: Chronic Assessment and Plan: Continue Atorvastatin PO. (9) GERD (gastroesophageal reflux disease): Qualifiers: Esophagitis presence: esophagitis presence not specified Qualified Code(s): K21.9 - Gastro-esophageal reflux disease without esophagitis Code(s): K21.9 - Gastro-esophageal reflux disease without esophagitis Status: Chronic Assessment and Plan: Continue Protonix. Additional Plan Date of service was 11/24/2019 at 00:30 hrs. HPI Data of Consult Consult date: 11/24/19 Requesting Physician: Aristeo Monteiro MD Primary Care Provider: Levon Velasqeuz Jr., MD Consult Narrative Narrative: Thank you for consulting us to see this 69 year old Diabetic male with bladder cancer and atrial fib of Xarelto who was just discharged from our Hospitalist service after he was treated for Hemorrhagic shock and hematuria and now was readmitted to the hospital yesterday and underwent cystoscopy with clot evacuation and transurethral resection of bladder tumor with fulguration. The patient continues to have mild suprapubic discomfort. He has CBI running and his urine is still pink in color. Actually denies any fever, chills, cough, shortness of breath, nausea, vomiting, diarrhea or other symptoms. No other complaints. We have been consulted for medical management. Review of Systems Review of Sy
[2019-11-24] MEDS: MORPHINE SULFATE 2 MG/ML INJ IV PUSH ×4 (01:07→23:36)
[2019-11-24 06:47] LABS: Blood Urea Nitrogen 25 mg/dL (9-20); Calcium 7.7 mg/dL (8.4-10.2); Carbon Dioxide 24 mmol/L (22-30); Chloride 102 mmol/L (98-107); Estimated CRCL calculation 42 ml/min; Estimated Glomerular Filt Rate 37; Glucose 129 mg/dL (75-110); Potassium 4.1 mmol/L (3.4-5.0); Sodium 136 mmol/L (137-145)
[2019-11-24 07:19] LABS: Hematocrit 21.2 % (42.0-52.0)
[2019-11-24 07:22] LABS: Hemoglobin 6.4 g/dL (14.0-18.0)
--- NOTE | 2019-11-24 07:57 | WPDUROPN2 ---
Progress Note: A&P Assessment and Plan (1) Urothelial carcinoma of bladder: Code(s): C67.9 - Malignant neoplasm of bladder, unspecified Status: Acute Assessment and Plan: Await pathology from mild TUR. Very difficult situation in this gentleman with multiple medical issues who may not tolerate a cystectomy. (2) Hematuria: Qualifiers: Hematuria type: unspecified type Qualified Code(s): R31.9 - Hematuria, unspecified Code(s): R31.9 - Hematuria, unspecified Status: Acute Assessment and Plan: Continue with CBI this morning and weaned to office tolerated. Will need to hold off on Xarelto until urine clears. Unfortunately this may be a recurring issue and a decision will need to be made regarding long-term Xarelto use (3) Anemia: Code(s): D64.9 - Anemia, unspecified Status: Acute Assessment and Plan: Transfused 2 units packed cells today. Monitor H&H. Subjective Subjective Date/Time Seen: 11/24/19 07:57 Post Op day: 1 (Clot evacuation with mild resection of irregular bladder tissue) Interval history: No major complaints this morning although his hemoglobin and hematocrit are decreased. Urine is clearing with mild CBI Review of Systems Review of Systems: All systems reviewed & are unremarkable except as noted in HPI and below Exam GI: Inspection: non-distended Urinary Catheter: Urinary Catheter: patent and draining and urine pink Objective Data Vital Signs Vital Signs: Vital Signs - 24 hr 11/23/19 08:37 11/23/19 08:50 11/23/19 09:05 Temperature 36.2 C L Pulse Rate 92 113 H 116 H Respiratory Rate 16 20 18 Blood Pressure 93/63 L 111/83 123/74 Pulse Oximetry 100 100 94 11/23/19 09:25 11/23/19 09:40 11/23/19 09:55 Temperature Pulse Rate 110 H 107 H 110 H Respiratory Rate 16 20 20 Blood Pressure 123/74 114/76 121/70 Pulse Oximetry 94 94 93 11/23/19 10:10 11/23/19 10:25 11/23/19 10:40 Temperature Pulse Rate 118 H 112 H 104 H Respiratory Rate 16 20 20 Blood Pressure 126/67 105/72 108/75 Pulse Oximetry 94 94 94 11/23/19 11:00 11/23/19 11:30 11/23/19 11:45 Temperature Pulse Rate 120 H 118 H 112 H Respiratory Rate 18 20 18 Blood Pressure 113/71 99/78 L 110/78 Pulse Oximetry 94 93 96 11/23/19 12:00 11/23/19 12:16 11/23/19 13:02 Temperature 36.4 C 36.2 C L 36.1 C L Pulse Rate 108 H 112 H 128 H Respiratory Rate 18 18 18 Blood Pressure 101/63 104/62 100/64 Pulse Oximetry 90 94 91 11/23/19 14:00 11/23/19 22:00 11/24/19 02:00 Temperature 36.3 C L 36.7 C 36.6 C Pulse Rate 106 H 144 H 106 H Respiratory Rate 18 20 22 H Blood Pressure 99/61 L 129/68 104/57 L Pulse Oximetry 90 94 91 11/24/19 03:00 11/24/19 06:00 Temperature 36.3 C L Pulse Rate 84 Respiratory Rate 17 20 Blood Pressure 100/54 L Pulse Oximetry 95 Intake/Output Intake/Output: Intake & Output 11/21/19 11/22/19 11/23/19 11/24/19 23:59 23:59 23:59 23:59 Intake Total 1350 21328 Output Total 57593 19956 Balance -26301 -1999 Meds/Results Medications: Active Medications Generic Name Dose Route Start Last Admin Trade Name Freq PRN Reason Stop Dose Admin Acetaminophen 650 mg 11/23/19 12:09 Tylenol Tablet PO Q6H PRN Pain, Mild Hydrocodone Bitart/Acetaminophen 1 tab 11/23/19 12:09 [place] 5-325 Mg PO Q8H PRN MEDERATE Pain RATED 4-6 Al Hydrox/Mg Hydrox/Simethicone 5 ml 11/23/19 12:09 Mylanta PO TID PRN Indigestion Albuterol 2.5 mg 11/23/19 12:09 Albuterol Sulf Neb 2.5mg/0.5ml INHALATION QIDRT PRN Shortness Of Breath Amitriptyline HCl 50 mg 11/23/19 21:00 11/23/19 23:01 Elavil PO 50 mg HS TEREZA Administration Atorvastatin Calcium 20 mg 11/23/19 21:00 11/23/19 23:03 Lipitor PO 20 mg HS TEREZA Administration Benzonatate 100 mg 11/23/19 12:09 Tessalon Perles PO TID PRN Cough Budesonide/Formoterol Fumarate 2 puff 11/23/19
--- NOTE | 2019-11-24 10:00 | PM.IMPN ---
Progress Note: A&P Assessment and Plan (1) Acute anemia: Code(s): D64.9 - Anemia, unspecified Status: Acute Assessment and Plan: Patient's H&H after procedure yesterday came back with acute anemia with a hemoglobin of 6.4, hematocrit 21.2%. Acute blood loss most likely from procedure along with hematuria over the last week. Dr. Monteiro ordered for 2 units to be transfused will recheck his H&H after transfusion. Continue monitoring H&H. Transfuse as needed. (2) Hematuria: Qualifiers: Hematuria type: unspecified type Qualified Code(s): R31.9 - Hematuria, unspecified Code(s): R31.9 - Hematuria, unspecified Status: Acute Assessment and Plan: Koo catheter is in place since being discharged on 11/19/2019. He does report some hematuria since being discharged at home. On 11/23/2019 Dr. Monteiro performed cystoscopy with clot evacuation, trans urethral resection of bladder tumor with fulguration. CBI is running at this time and urine appears clear with slight red tinge noted. Continue Urology recommendations. Monitor H/H, transfuse prn. (3) Atrial fibrillation: Qualifiers: Atrial fibrillation type: unspecified Qualified Code(s): I48.91 - Unspecified atrial fibrillation Code(s): I48.91 - Unspecified atrial fibrillation Status: Chronic Assessment and Plan: Patient is in chronic atrial fibrillation and is rate controlled at this time. Resume Xarelto once Urology has completed the procedures necessary for the patient's hematuria. Continue beta irma. (4) Bladder cancer: Qualifiers: Bladder location: unspecified site Qualified Code(s): C67.9 - Malignant neoplasm of bladder, unspecified Code(s): C67.9 - Malignant neoplasm of bladder, unspecified Status: Chronic Assessment and Plan: Continue Heme/Onc recommendations for urothelial carcinoma. Will have him follow-up with Dr. Renner upon discharge. (5) EIRC (obstructive sleep apnea): Code(s): G47.33 - Obstructive sleep apnea (adult) (pediatric) Status: Chronic Assessment and Plan: Continue CPAP. (6) CKD (chronic kidney disease): Qualifiers: Chronic kidney disease stage: stage 3 (moderate) Qualified Code(s): N18.3 - Chronic kidney disease, stage 3 (moderate) Code(s): N18.9 - Chronic kidney disease, unspecified Status: Chronic Assessment and Plan: Creatinine normal range between 1-1.5. This morning patient creatinine was 1.8 and BUN was slightly elevated at 25. The patient is currently getting some IV fluids, Dextrose/LR at rate 100 ml/hr Monitor renal function. Avoid nephrotoxic agents. (7) Hypertension: Qualifiers: Hypertension type: unspecified Qualified Code(s): I10 - Essential (primary) hypertension Code(s): I10 - Essential (primary) hypertension Status: Chronic Assessment and Plan: Patient's blood pressure was low this morning 90/52. Will hold his carvedilol at this. Could be secondary to his acute anemia and needing 2 units to be transfused. Patient is getting IV fluids at this time we will hold off on a fluid bolus due to history of CHF. Continue monitoring patient's blood pressure and restart Coreg if blood pressure improves. (8) Diabetes: Qualifiers: Diabetes mellitus type: type 2 Diabetes mellitus long-term insulin use: without primary care physician use Diabetes mellitus complication status: without complication Qualified Code(s): E11.9 - Type 2 diabetes mellitus without complications Code(s): E11.9 - Type 2 diabetes mellitus
[2019-11-24 10:02] LABS: Glucose Point of Care 116 (65-105)
[2019-11-24] MEDS: DEXTROSE 5%/LACTATED RINGERS 1,000 ML 125 ML IV CONT (10:25)
[2019-11-24] MEDS: busPIRone HCL 5 MG TABLET PO ×3 (10:28→16:55)
[2019-11-24] MEDS: CEPHALEXIN 500 MG CAPSULE PO ×4 (10:28→22:35)
[2019-11-24] MEDS: DOCUSATE SODIUM 100 MG CAPSULE PO ×2 (10:28→16:55)
[2019-11-24] MEDS: polyethylene glycoL 3350 17 GM POWD.PACK PO (10:29)
[2019-11-24] MEDS: DULoxetine HCL 60 MG CAPSULE.DR PO (10:30)
[2019-11-24] MEDS: FERROUS SULFATE 324 MG TABLET PO (10:30)
[2019-11-24] MEDS: RANOLAZINE 500 MG TAB.ER.12H PO ×2 (10:30→22:36)
[2019-11-24] MEDS: LORATADINE 10 MG TABLET PO (10:31)
[2019-11-24] MEDS: PANTOPRAZOLE 40 MG TABLET PO ×2 (10:31→22:35)
[2019-11-24] MEDS: SODIUM CHLORIDE 0.9% IV 250 ML 30 ML IV CONT (11:17)
[2019-11-24] MEDS: OXYBUTYNIN CHLORIDE 5 MG TABLET PO (13:36)
[2019-11-24 14:22] LABS: Glucose Point of Care 105 (65-105)
[2019-11-24 17:18] LABS: Glucose Point of Care 130 (65-105)
[2019-11-24] MEDS: carvediloL 25 MG TABLET PO (22:34)
[2019-11-24] MEDS: AMITRIPTYLINE HCL 25 MG TABLET 50 MG PO (22:34)
[2019-11-24] MEDS: ATORVASTATIN 20 MG TABLET PO (22:34)
[2019-11-24] MEDS: PRAMIPEXOLE 0.5 MG TABLET PO (22:35)
[2019-11-24] MEDS: PRAZOSIN HCL 5 MG CAPSULE PO (22:36)
[2019-11-24] MEDS: CYCLOBENZAPRINE HCL 10 MG TABLET PO (22:41)
[2019-11-24 23:19] LABS: Hematocrit 25.4 % (42.0-52.0); Hemoglobin 8.3 g/dL (14.0-18.0)
[2019-11-25] VITALS (11 sets, daily range): BP systolic 98–118; BP diastolic 46–72; PULSE 80–96; RESP 18–21; TEMP 36.2–36.9; O2SAT 91–100
[2019-11-25] MEDS: DEXTROSE 5%/LACTATED RINGERS 1,000 ML 100 ML IV CONT (05:39)
[2019-11-25 05:43] LABS: Glucose Point of Care 138 (65-105)
[2019-11-25] MEDS: ALBUTEROL SULFATE NEB 2.5 MG/0.5 ML INH INHALATION (06:29)
[2019-11-25] MEDS: MORPHINE SULFATE 2 MG/ML INJ IV PUSH ×2 (06:43→21:48)
[2019-11-25 06:54] LABS: Hematocrit 25.9 % (42.0-52.0); Hemoglobin 8.4 g/dL (14.0-18.0); Mean Corpuscular HGB Conc 32.4 g/dl (32-36); Mean Corpuscular Volume 92.5 fl (80-100); Mean Platelet Volume 9.8 fl (7.4-10.4); Platelet Count Result 115 k/mm3 (150-375); Red Cell Distribution Width 16.2 % (11.5-14.5); White Blood Count 6.8 K/mm3 (4.5-10.0)
[2019-11-25 07:03] LABS: Blood Urea Nitrogen 18 mg/dL (9-20); Calcium 8.2 mg/dL (8.4-10.2); Carbon Dioxide 28 mmol/L (22-30); Chloride 101 mmol/L (98-107); Estimated CRCL calculation 54 ml/min; Estimated Glomerular Filt Rate 50; Glucose 131 mg/dL (75-110); Potassium 4.5 mmol/L (3.4-5.0); Sodium 134 mmol/L (137-145)
[2019-11-25] MEDS: busPIRone HCL 5 MG TABLET PO ×3 (08:11→17:28)
[2019-11-25] MEDS: carvediloL 25 MG TABLET PO ×2 (08:12→21:17)
[2019-11-25] MEDS: CEPHALEXIN 500 MG CAPSULE PO ×4 (08:13→21:18)
[2019-11-25] MEDS: DOCUSATE SODIUM 100 MG CAPSULE PO ×2 (08:13→17:32)
[2019-11-25] MEDS: LORATADINE 10 MG TABLET PO (08:14)
[2019-11-25] MEDS: polyethylene glycoL 3350 17 GM POWD.PACK PO (08:14)
[2019-11-25] MEDS: ISOSORBIDE MONONITRATE 60 MG TAB.ER.24H 120 MG PO (08:14)
[2019-11-25] MEDS: DULoxetine HCL 60 MG CAPSULE.DR PO (08:14)
[2019-11-25] MEDS: FUROSEMIDE 40 MG TABLET PO (08:14)
[2019-11-25] MEDS: PANTOPRAZOLE 40 MG TABLET PO ×2 (08:14→21:18)
[2019-11-25] MEDS: RANOLAZINE 500 MG TAB.ER.12H PO ×2 (08:15→21:21)
[2019-11-25 08:25] LABS: Glucose Point of Care 128 (65-105)
--- NOTE | 2019-11-25 11:54 | WPDUROPN2 ---
Progress Note: A&P Assessment and Plan (1) Hematuria: Qualifiers: Hematuria type: unspecified type Qualified Code(s): R31.9 - Hematuria, unspecified Code(s): R31.9 - Hematuria, unspecified Status: Acute Assessment and Plan: Pathology negative for malignancy. Bladder has severe cystitis, will plan to keep CBI running as needed. CBI turned off when examined patient, if urine gets more bloody will need to re-start it. Once urine has cleared off CBI will plan to do a voiding trial. Subjective Subjective Date/Time Seen: 11/25/19 11:54 Post Op day: 2 (Clot evacuation with mild resection of irregular bladder tissue) Interval history: No major complaints this morning although his hemoglobin and hematocrit are stabilized after two units of blood. Urine is clearing with mild CBI Review of Systems Cardiovascular: Cardiovascular: Denies chest pain Respiratory: Respiratory: Reports no additional respiratory complaints Gastrointestinal: Gastrointestinal: Denies abdominal pain, Denies nausea and Denies vomiting Genitourinary: Genitourinary: Reports hematuria Exam Resp: Effort & Inspection: normal respiratory effort Cardio: Rate: regular rate GI: GI Palp: Yes abdominal tenderness and Yes Soft to palpation Urinary Catheter: Urinary Catheter: patent and draining, urine clear, urine pink and urine with clots Extrem: General: no edema Objective Data Vital Signs Vital Signs: Vital Signs - 24 hr 11/24/19 12:37 11/24/19 14:00 11/24/19 15:30 Temperature 97.7 F 97.2 F L 97.2 F L Pulse Rate 85 63 94 Respiratory Rate 16 16 18 Blood Pressure 90/51 L 94/49 L 100/68 Pulse Oximetry 98 93 91 11/24/19 15:45 11/24/19 16:30 11/24/19 18:00 Temperature 98.1 F 97.9 F 97.7 F Pulse Rate 93 98 98 Respiratory Rate 18 16 16 Blood Pressure 100/50 L 97/51 L 116/58 L Pulse Oximetry 94 91 91 11/24/19 19:30 11/24/19 20:37 11/24/19 22:00 Temperature 97.8 F 98.5 F Pulse Rate 86 90 Respiratory Rate 20 18 20 Blood Pressure 103/46 L 101/62 Pulse Oximetry 97 91 11/24/19 22:34 11/25/19 06:00 11/25/19 06:20 Temperature 97.2 F L Pulse Rate 92 93 82 Respiratory Rate 18 20 Blood Pressure 112/72 Pulse Oximetry 91 11/25/19 06:31 11/25/19 08:12 Temperature Pulse Rate 88 94 Respiratory Rate 20 Blood Pressure Pulse Oximetry Intake/Output Intake/Output: Intake & Output 11/22/19 11/23/19 11/24/19 11/25/19 23:59 23:59 23:59 23:59 Intake Total 1350 75391 550 Output Total [address] [facility] [phone] Meds/Results Medications: Active Medications Generic Name Dose Route Start Last Admin Trade Name Freq PRN Reason Stop Dose Admin Acetaminophen 650 mg 11/23/19 12:09 Tylenol Tablet PO Q6H PRN Pain, Mild Hydrocodone Bitart/Acetaminophen 1 tab 11/23/19 12:09 [place] 5-325 Mg PO Q8H PRN MEDERATE Pain RATED 4-6 Al Hydrox/Mg Hydrox/Simethicone 5 ml 11/23/19 12:09 Mylanta PO TID PRN Indigestion Albuterol 2.5 mg 11/23/19 12:09 11/25/19 06:29 Albuterol Sulf Neb 2.5mg/0.5ml INHALATION 2.5 mg QIDRT PRN Administration Shortness Of Breath Amitriptyline HCl 50 mg 11/23/19 21:00 11/24/19 22:34 Elavil PO 50 mg HS TEREZA Administration Atorvastatin Calcium 20 mg 11/23/19 21:00 11/24/19 22:34 Lipitor PO 20 mg HS TEREZA Administration Benzonatate 100 mg 11/23/19 12:09 Tessalon Perles PO TID PRN Cough Bisacodyl 10 mg 11/24/19 10:02 Dulcolax Suppository RECTAL Q24H PRN Constipation Budesonide/Formoterol Fumarate 2 puff 11/23/19 20:00 11/25/19 08:21 Symbicort 80-4.5 Mcg (*Sp) Inhaler INHALATION 2 puff Q12HRT TEREZA Administration Buspirone HCl 5 mg 11/23/19 13:00 11/25/19 08:11 Buspar PO 5 mg TID TEREZA Administration Carvedilol 25 mg 11/23/19 21:00 11/25/19 08:12 Coreg PO 25 mg Q12HR TEREZA Administration Cephalexin HCl 5
[2019-11-25 12:11] LABS: Glucose Point of Care 116 (65-105)
[2019-11-25 13:06] LABS: SARS-CoV-2 RNA PCR Negative
[2019-11-25] MEDS: OXYBUTYNIN CHLORIDE 5 MG TABLET PO (14:07)
--- NOTE | 2019-11-25 14:38 | PM.IMPN ---
Progress Note: A&P Assessment and Plan (1) Hypoxia: Code(s): R09.02 - Hypoxemia Status: Acute Assessment and Plan: The nurse informed me that last night his oxygen saturation dropped and he was placed on 3 L of oxygen. Nurse states now he is back on room air with a saturation 91%. Patient states he is not short of breath at this time but yesterday became short of breath with moving around so much. I will check a chest x-ray to look for acute CHF exacerbation versus pneumonia versus other underlying cause to his sudden hypoxia. Right now he appears to be breathing without any issues and denies any shortness of breath. The nurse states that she checked his pulse ox earlier and it showed 64% on his finger but when she checked the pulse ox on his toe it was 94%. She is unsure if the reading last night was accurate or not. Continue watching patient's oxygenation and how he is feeling. (2) Acute anemia: Code(s): D64.9 - Anemia, unspecified Status: Acute Assessment and Plan: Patient's H&H after cystoscopy procedure came back with acute anemia with a hemoglobin of 6.4, hematocrit 21.2%. Acute blood loss most likely from procedure along with hematuria over the last week. Dr. Monteiro ordered for 2 units to be transfused H&H this morning was 8.4/25.9%. Stable. He only has slight redness noted to his Koo bag at this time. Continue monitoring H&H. Transfuse as needed. (3) Hematuria: Qualifiers: Hematuria type: unspecified type Qualified Code(s): R31.9 - Hematuria, unspecified Code(s): R31.9 - Hematuria, unspecified Status: Acute Assessment and Plan: Koo catheter is in place since being discharged on 11/19/2019. He does report some hematuria since being discharged at home. On 11/23/2019 Dr. Monteiro performed cystoscopy with clot evacuation, trans urethral resection of bladder tumor with fulguration. CBI is on hold at this time we are monitoring. Urine appears clear with slight red tinge noted. Continue Urology recommendations. Monitor H/H, transfuse prn. (4) Atrial fibrillation: Qualifiers: Atrial fibrillation type: unspecified Qualified Code(s): I48.91 - Unspecified atrial fibrillation Code(s): I48.91 - Unspecified atrial fibrillation Status: Chronic Assessment and Plan: Patient is in chronic atrial fibrillation and is rate controlled at this time. Resume Xarelto once Urology has completed the procedures necessary for the patient's hematuria. Continue beta irma. (5) Bladder cancer: Qualifiers: Bladder location: unspecified site Qualified Code(s): C67.9 - Malignant neoplasm of bladder, unspecified Code(s): C67.9 - Malignant neoplasm of bladder, unspecified Status: Chronic Assessment and Plan: Continue Heme/Onc recommendations for urothelial carcinoma. Will have him follow-up with Dr. Renner upon discharge. (6) ERIC (obstructive sleep apnea): Code(s): G47.33 - Obstructive sleep apnea (adult) (pediatric) Status: Chronic Assessment and Plan: Continue CPAP. (7) CKD (chronic kidney disease): Qualifiers: Chronic kidney disease stage: stage 3 (moderate) Qualified Code(s): N18.3 - Chronic kidney disease, stage 3 (moderate) Code(s): N18.9 - Chronic kidney disease, unspecified Status: Chronic Assessment and Plan: Creatinine normal range between 1-1.5. This morning patient creatinine was 1.4 and BUN was slightly elevated at 18. Monitor renal function. Avoid nephrotoxic agents. (8) Hypertension: Qualif
[2019-11-25 18:56] LABS: Glucose Point of Care 127 (65-105)
[2019-11-25] MEDS: ATORVASTATIN 20 MG TABLET PO (21:16)
[2019-11-25] MEDS: AMITRIPTYLINE HCL 25 MG TABLET 50 MG PO (21:17)
[2019-11-25] MEDS: PRAMIPEXOLE 0.5 MG TABLET PO (21:19)
[2019-11-25] MEDS: PRAZOSIN HCL 5 MG CAPSULE PO (21:22)
[2019-11-25 22:10] LABS: Glucose Point of Care 116 (65-105)
[2019-11-26] VITALS (7 sets, daily range): BP systolic 95–142; BP diastolic 53–79; PULSE 86–98; RESP 18–20; TEMP 36.2–37; O2SAT 92–100
[2019-11-26 06:42] LABS: Hematocrit 25.8 % (42.0-52.0); Hemoglobin 8.3 g/dL (14.0-18.0); Mean Corpuscular HGB Conc 32.2 g/dl (32-36); Mean Corpuscular Hemoglobin 30.1 pg (26-34); Mean Corpuscular Volume 93.5 fl (80-100); Mean Platelet Volume 10.1 fl (7.4-10.4); Platelet Count Result 127 k/mm3 (150-375); Red Blood Count 2.76 M/mm3 (4.6-6.20); Red Cell Distribution Width 15.9 % (11.5-14.5); White Blood Count 6.5 K/mm3 (4.5-10.0)
[2019-11-26 06:53] LABS: Blood Urea Nitrogen 17 mg/dL (9-20); Calcium 8.3 mg/dL (8.4-10.2); Carbon Dioxide 29 mmol/L (22-30); Chloride 99 mmol/L (98-107); Estimated CRCL calculation 54 ml/min; Estimated Glomerular Filt Rate 50; Glucose 121 mg/dL (75-110); Potassium 4.3 mmol/L (3.4-5.0); Sodium 134 mmol/L (137-145)
[2019-11-26 08:18] LABS: Basophils Percent Auto 0.2 % (0.2-1.2); Eosinophils Absolute Auto 0.3 K/mm3 (0-0.3); Eosinophils Percent Auto 4.1 % (0-4.4); Hematocrit 25.5 % (42.0-52.0); Hemoglobin 8.3 g/dL (14.0-18.0); Immature Granulocyte Absolute 0.07 K/mm3 (0.00-0.031); Immature Granulocyte Percent A 1.1 % (0-0.5); Lymphocytes Percent Auto 6.3 % (18.3-44.2); Mean Corpuscular HGB Conc 32.5 g/dl (32-36); Mean Corpuscular Hemoglobin 30.5 pg (26-34); Mean Corpuscular Volume 93.8 fl (80-100); Mean Platelet Volume 10.7 fl (7.4-10.4); Monocytes Absolute Auto 0.6 K/mm3 (0.1-0.6); Monocytes Percent Auto 9.3 % (2.6-8.5); Platelet Count Result 127 k/mm3 (150-375); Red Blood Count 2.72 M/mm3 (4.6-6.20); Red Cell Distribution Width 15.9 % (11.5-14.5); White Blood Count 6.3 K/mm3 (4.5-10.0)
[2019-11-26] MEDS: DULoxetine HCL 60 MG CAPSULE.DR PO (10:15)
[2019-11-26] MEDS: FERROUS SULFATE 324 MG TABLET PO (10:15)
[2019-11-26] MEDS: carvediloL 25 MG TABLET PO ×2 (10:15→20:36)
[2019-11-26] MEDS: PANTOPRAZOLE 40 MG TABLET PO ×2 (10:15→20:37)
[2019-11-26] MEDS: ISOSORBIDE MONONITRATE 60 MG TAB.ER.24H 120 MG PO (10:16)
[2019-11-26] MEDS: RANOLAZINE 500 MG TAB.ER.12H PO ×2 (10:16→20:36)
[2019-11-26] MEDS: FUROSEMIDE 40 MG TABLET PO (10:16)
[2019-11-26] MEDS: busPIRone HCL 5 MG TABLET PO ×3 (10:16→16:19)
[2019-11-26] MEDS: LORATADINE 10 MG TABLET PO (10:17)
[2019-11-26] MEDS: polyethylene glycoL 3350 17 GM POWD.PACK PO (10:19)
[2019-11-26] MEDS: DOCUSATE SODIUM 100 MG CAPSULE PO ×2 (10:19→16:19)
[2019-11-26] MEDS: SACCHAROMYCES BOULARDII 250 MG CAPSULE PO ×2 (10:19→16:19)
[2019-11-26 11:44] LABS: Glucose Point of Care 124 (65-105)
[2019-11-26] MEDS: OXYBUTYNIN CHLORIDE 5 MG TABLET PO (12:12)
--- NOTE | 2019-11-26 12:15 | WPDUROPN2 ---
Progress Note: A&P Assessment and Plan (1) Hematuria: Qualifiers: Hematuria type: unspecified type Qualified Code(s): R31.9 - Hematuria, unspecified Code(s): R31.9 - Hematuria, unspecified Status: Acute Assessment and Plan: Restart CBI. Wean to off when clear. This will be a long process for this patient unfortunately d/t the overall condition of his bladder. He will not restart anticoagulants, but must have hematuria clear before he can be discharged. Pathology results are negative for bladder cancer, showing severe cystitis. Will continue to monitor. Subjective Subjective Date/Time Seen: 11/26/19 12:15 Post Op day: 3 (Clot evacuation with mild resection of irregular bladder tissue) Interval history: No major complaints this morning although his hemoglobin and hematocrit are stabilized after two units of blood. Urine is damon red today off CBI, will restart CBI. Chest X-Ray reveals pneumonia, will switch to Levaquin. Review of Systems Cardiovascular: Cardiovascular: Denies chest pain Respiratory: Respiratory: Reports no additional respiratory complaints Gastrointestinal: Gastrointestinal: Reports abdominal pain, Denies nausea and Denies vomiting Genitourinary: Genitourinary: Reports hematuria and Denies flank pain Exam Resp: Effort & Inspection: normal respiratory effort Cardio: Rate: regular rate GI: GI Palp: Yes Soft to palpation and Yes Tenderness to palpation present (GI) (bilateral lower quadrant) Urinary Catheter: Urinary Catheter: patent and draining, urine red and urine with clots Extrem: General: no edema Objective Data Vital Signs Vital Signs: Vital Signs - 24 hr 11/25/19 14:00 11/25/19 15:08 11/25/19 18:00 Temperature 97.8 F 98.5 F Pulse Rate 80 80 Respiratory Rate 18 18 Blood Pressure 105/52 L 100/56 L Pulse Oximetry 100 92 100 11/25/19 21:30 11/25/19 22:00 11/25/19 23:00 Temperature 97.4 F L Pulse Rate 96 96 Respiratory Rate 20 20 21 H Blood Pressure 118/62 Pulse Oximetry 93 93 11/26/19 06:00 11/26/19 10:15 Temperature 97.2 F L Pulse Rate 97 96 Respiratory Rate 18 Blood Pressure 114/79 Pulse Oximetry 96 Intake/Output Intake/Output: Intake & Output 11/23/19 11/24/19 11/25/19 11/26/19 23:59 23:59 23:59 23:59 Intake Total 1350 68660 2980 180 Output Total [id number] 36589 4347 8497 [id number] -[phone] Meds/Results Medications: Active Medications Generic Name Dose Route Start Last Admin Trade Name Freq PRN Reason Stop Dose Admin Acetaminophen 650 mg 11/23/19 12:09 Tylenol Tablet PO Q6H PRN Pain, Mild Hydrocodone Bitart/Acetaminophen 1 tab 11/23/19 12:09 11/25/19 23:57 [place] 5-325 Mg PO 1 tab Q8H PRN Administration MEDERATE Pain RATED 4-6 Al Hydrox/Mg Hydrox/Simethicone 5 ml 11/23/19 12:09 Mylanta PO TID PRN Indigestion Albuterol 2.5 mg 11/23/19 12:09 11/25/19 06:29 Albuterol Sulf Neb 2.5mg/0.5ml INHALATION 2.5 mg QIDRT PRN Administration Shortness Of Breath Amitriptyline HCl 50 mg 11/23/19 21:00 11/25/19 21:17 Elavil PO 50 mg HS TEREZA Administration Atorvastatin Calcium 20 mg 11/23/19 21:00 11/25/19 21:16 Lipitor PO 20 mg HS TEREZA Administration Benzonatate 100 mg 11/23/19 12:09 Tessalon Perles PO TID PRN Cough Bisacodyl 10 mg 11/24/19 10:02 Dulcolax Suppository RECTAL Q24H PRN Constipation Budesonide/Formoterol Fumarate 2 puff 11/23/19 20:00 11/26/19 10:38 Symbicort 80-4.5 Mcg (*Sp) Inhaler INHALATION 2 puff Q12HRT TEREZA Administration Buspirone HCl 5 mg 11/23/19 13:00 11/26/19 12:12 Buspar PO 5 mg TID TEREZA Administration Carvedilol 25 mg 11/23/19 21:00 11/26/19 10:15 Coreg PO 25 mg Q12HR TEREZA Administration Cyclobenzaprine HCl 10 mg 11/23/19 12:09 11/24/19 22:41 Flexeril PO 10 mg TID PRN Administration Spasms Dextrose 12.5 gm
--- NOTE | 2019-11-26 16:15 | PM.IMPN ---
Progress Note: A&P Assessment and Plan (1) Pneumonia: Qualifiers: Laterality: left Lung location: unspecified part of lung Pneumonia type: due to unspecified organism Qualified Code(s): J18.9 - Pneumonia, unspecified organism Code(s): J18.9 - Pneumonia, unspecified organism Status: Acute Assessment and Plan: The patients oxygen saturation dropped 11/25/2019 and he was placed on 3 L of oxygen. Chest x-ray showed that the patient has bilateral pneumonia. Patient does report a slight productive cough and he was slightly short of breath sitting in bed earlier. He does not have any leukocytosis but his neutrophil count has elevated. His vital signs has otherwise been stable, afebrile, stable blood pressure, no tachycardia, 97% oxygen on room air and normal respiratory rate. Will switch his antibiotics from cephalexin which urology started after his procedure to oral Levaquin for a broader spectrum of coverage for his pneumonia, potentially hospital-acquired pneumonia. Continue watching patient's oxygenation and how he is feeling. (2) Acute anemia: Code(s): D64.9 - Anemia, unspecified Status: Acute Assessment and Plan: Patient's H&H after cystoscopy procedure came back with acute anemia with a hemoglobin of 6.4, hematocrit 21.2%. Acute blood loss most likely from procedure along with hematuria over the last week. Dr. Monteiro ordered for 2 units to be transfused 11/24/2019. H&H this morning was 8.3/25.8%. Stable. He he has increased redness noted to his Koo bag today. Continue monitoring H&H. Transfuse as needed. (3) Hematuria: Qualifiers: Hematuria type: unspecified type Qualified Code(s): R31.9 - Hematuria, unspecified Code(s): R31.9 - Hematuria, unspecified Status: Acute Assessment and Plan: Koo catheter is in place since being discharged on 11/19/2019. He does report some hematuria since being discharged at home. On 11/23/2019 Dr. Monteiro performed cystoscopy with clot evacuation, trans urethral resection of bladder tumor with fulguration. CBI was restarted due to hematuria. Continue Urology recommendations. Monitor H/H, transfuse prn. (4) Atrial fibrillation: Qualifiers: Atrial fibrillation type: unspecified Qualified Code(s): I48.91 - Unspecified atrial fibrillation Code(s): I48.91 - Unspecified atrial fibrillation Status: Chronic Assessment and Plan: Patient is in chronic atrial fibrillation and is rate controlled at this time. Resume Xarelto once Urology has completed the procedures necessary for the patient's hematuria. Continue beta irma. (5) Bladder cancer: Qualifiers: Bladder location: unspecified site Qualified Code(s): C67.9 - Malignant neoplasm of bladder, unspecified Code(s): C67.9 - Malignant neoplasm of bladder, unspecified Status: Chronic Assessment and Plan: Continue Heme/Onc recommendations for urothelial carcinoma. Will have him follow-up with Dr. Renner upon discharge. (6) ERIC (obstructive sleep apnea): Code(s): G47.33 - Obstructive sleep apnea (adult) (pediatric) Status: Chronic Assessment and Plan: Continue CPAP. (7) CKD (chronic kidney disease): Qualifiers: Chronic kidney disease stage: stage 3 (moderate) Qualified Code(s): N18.3 - Chronic kidney disease, stage 3 (moderate) Code(s): N18.9 - Chronic kidney disease, unspecified Status: Chronic Assessment and Plan: Creatinine normal range between 1-1.5. This morning patient creatinine was 1.4 and BUN was slightly elevated at 17. Monitor renal function.
[2019-11-26 16:24] LABS: Glucose Point of Care 115 (65-105)
[2019-11-26] MEDS: MORPHINE SULFATE 2 MG/ML INJ IV PUSH (20:30)
[2019-11-26] MEDS: AMITRIPTYLINE HCL 25 MG TABLET 50 MG PO (20:37)
[2019-11-26] MEDS: PRAMIPEXOLE 0.5 MG TABLET PO (20:37)
[2019-11-26] MEDS: ATORVASTATIN 20 MG TABLET PO (20:38)
[2019-11-26] MEDS: PRAZOSIN HCL 5 MG CAPSULE PO (20:38)
[2019-11-26 21:31] LABS: Glucose Point of Care 118 (65-105)
[2019-11-26] MEDS: FENTANYL 25 MCG/HR PATCH TRANSDERM (22:34)
[2019-11-27] VITALS (7 sets, daily range): BP systolic 104–125; BP diastolic 59–68; PULSE 70–108; RESP 15–20; TEMP 36.2–36.6; O2SAT 94–100
[2019-11-27 06:44] LABS: Basophils Percent Auto 0.4 % (0.2-1.2); Eosinophils Absolute Auto 0.2 K/mm3 (0-0.3); Eosinophils Percent Auto 4.7 % (0-4.4); Hematocrit 24.9 % (42.0-52.0); Hemoglobin 7.9 g/dL (14.0-18.0); Immature Granulocyte Absolute 0.03 K/mm3 (0.00-0.031); Immature Granulocyte Percent A 0.6 % (0-0.5); Lymphocytes Absolute Auto 0.44 K/mm3 (0.9-3.2); Lymphocytes Percent Auto 8.6 % (18.3-44.2); Mean Corpuscular HGB Conc 31.7 g/dl (32-36); Mean Corpuscular Hemoglobin 29.7 pg (26-34); Mean Corpuscular Volume 93.6 fl (80-100); Mean Platelet Volume 10.2 fl (7.4-10.4); Monocytes Absolute Auto 0.4 K/mm3 (0.1-0.6); Monocytes Percent Auto 8.4 % (2.6-8.5); Neutrophils Percent Auto 77.3 % (45.5-73.1); Platelet Count Result 118 k/mm3 (150-375); Red Blood Count 2.66 M/mm3 (4.6-6.20); Red Cell Distribution Width 15.8 % (11.5-14.5); White Blood Count 5.1 K/mm3 (4.5-10.0)
[2019-11-27] MEDS: HYOSCYAMINE SULFATE 0.125 MG TABLET SUBLINGUAL (06:51)
[2019-11-27 06:57] LABS: Blood Urea Nitrogen 15 mg/dL (9-20); Calcium 8.3 mg/dL (8.4-10.2); Carbon Dioxide 29 mmol/L (22-30); Chloride 100 mmol/L (98-107); Estimated CRCL calculation 54 ml/min; Estimated Glomerular Filt Rate 50; Glucose 108 mg/dL (75-110); Potassium 4.3 mmol/L (3.4-5.0); Sodium 136 mmol/L (137-145)
[2019-11-27 08:32] LABS: Glucose Point of Care 99 (65-105)
[2019-11-27] MEDS: carvediloL 25 MG TABLET PO ×2 (10:39→21:43)
[2019-11-27] MEDS: busPIRone HCL 5 MG TABLET PO ×3 (10:39→18:05)
[2019-11-27] MEDS: DULoxetine HCL 60 MG CAPSULE.DR PO (10:40)
[2019-11-27] MEDS: ISOSORBIDE MONONITRATE 60 MG TAB.ER.24H 120 MG PO (10:40)
[2019-11-27] MEDS: FUROSEMIDE 40 MG TABLET PO (10:40)
[2019-11-27] MEDS: PANTOPRAZOLE 40 MG TABLET PO ×2 (10:41→21:43)
[2019-11-27] MEDS: LORATADINE 10 MG TABLET PO (10:41)
[2019-11-27] MEDS: SACCHAROMYCES BOULARDII 250 MG CAPSULE PO ×2 (10:41→18:06)
[2019-11-27] MEDS: RANOLAZINE 500 MG TAB.ER.12H PO ×2 (10:41→21:43)
[2019-11-27] MEDS: DOCUSATE SODIUM 100 MG CAPSULE PO ×2 (10:48→18:08)
[2019-11-27] MEDS: polyethylene glycoL 3350 17 GM POWD.PACK PO (10:48)
[2019-11-27 12:51] LABS: Glucose Point of Care 122 (65-105)
--- NOTE | 2019-11-27 16:04 | PM.IMPN ---
Progress Note: A&P Assessment and Plan (1) Pneumonia: Qualifiers: Laterality: left Lung location: unspecified part of lung Pneumonia type: due to unspecified organism Qualified Code(s): J18.9 - Pneumonia, unspecified organism Code(s): J18.9 - Pneumonia, unspecified organism Status: Acute Assessment and Plan: The patients oxygen saturation dropped 11/25/2019 and he was placed on 3 L of oxygen. Chest x-ray showed that the patient has bilateral pneumonia. Patient does report a slight productive cough and he was slightly short of breath sitting in bed earlier. He does not have any leukocytosis but his neutrophil count has elevated. His vital signs has otherwise been stable, afebrile, stable blood pressure, no tachycardia, 97% oxygen on room air and normal respiratory rate. Will switch his antibiotics from cephalexin which urology started after his procedure to oral Levaquin for a broader spectrum of coverage for his pneumonia, potentially hospital-acquired pneumonia. Patient is feeling well today and his neutrophil count on his differential improved after switching antibiotics. Continue watching patient's oxygenation and how he is feeling. (2) Acute anemia: Code(s): D64.9 - Anemia, unspecified Status: Acute Assessment and Plan: Patient's H&H after cystoscopy procedure came back with acute anemia with a hemoglobin of 6.4, hematocrit 21.2%. Acute blood loss most likely from procedure along with hematuria over the last week. Dr. Monteiro ordered for 2 units to be transfused 11/24/2019. H&H this morning was 7.9/24.9%. Stable. He does not have any hematuria noted to his Koo bag today. Continue monitoring H&H. Transfuse as needed. (3) Hematuria: Qualifiers: Hematuria type: unspecified type Qualified Code(s): R31.9 - Hematuria, unspecified Code(s): R31.9 - Hematuria, unspecified Status: Acute Assessment and Plan: Koo catheter is in place since being discharged on 11/19/2019. He does report some hematuria since being discharged at home. On 11/23/2019 Dr. Monteiro performed cystoscopy with clot evacuation, trans urethral resection of bladder tumor with fulguration. CBI is running on low. Continue Urology recommendations. Monitor H/H, transfuse prn. (4) Atrial fibrillation: Qualifiers: Atrial fibrillation type: unspecified Qualified Code(s): I48.91 - Unspecified atrial fibrillation Code(s): I48.91 - Unspecified atrial fibrillation Status: Chronic Assessment and Plan: Patient is in chronic atrial fibrillation and is rate controlled at this time. Resume Xarelto once Urology has completed the procedures necessary for the patient's hematuria. Continue beta irma. (5) Bladder cancer: Qualifiers: Bladder location: unspecified site Qualified Code(s): C67.9 - Malignant neoplasm of bladder, unspecified Code(s): C67.9 - Malignant neoplasm of bladder, unspecified Status: Chronic Assessment and Plan: Continue Heme/Onc recommendations for urothelial carcinoma. Will have him follow-up with Dr. Renner upon discharge. (6) ERIC (obstructive sleep apnea): Code(s): G47.33 - Obstructive sleep apnea (adult) (pediatric) Status: Chronic Assessment and Plan: Continue CPAP. (7) CKD (chronic kidney disease): Qualifiers: Chronic kidney disease stage: stage 3 (moderate) Qualified Code(s): N18.3 - Chronic kidney disease, stage 3 (moderate) Code(s): N18.9 - Chronic kidney disease, unspecified Status: Chronic Assessment and Plan: Creatinine normal range between 1-1.5.
[2019-11-27 17:07] LABS: Hematocrit 24.6 % (42.0-52.0); Hemoglobin 7.9 g/dL (14.0-18.0)
[2019-11-27 18:35] LABS: Glucose Point of Care 105 (65-105)
[2019-11-27] MEDS: ATORVASTATIN 20 MG TABLET PO (21:43)
[2019-11-27] MEDS: AMITRIPTYLINE HCL 25 MG TABLET 50 MG PO (21:43)
[2019-11-27] MEDS: PRAZOSIN HCL 5 MG CAPSULE PO (21:43)
[2019-11-27] MEDS: PRAMIPEXOLE 0.5 MG TABLET PO (21:43)
[2019-11-27 22:47] LABS: Glucose Point of Care 105 (65-105)
[2019-11-28] VITALS (7 sets, daily range): BP systolic 99–108; BP diastolic 45–67; PULSE 86–104; RESP 16–18; TEMP 36.2–36.7; O2SAT 92–94
[2019-11-28] MEDS: HYOSCYAMINE SULFATE 0.125 MG TABLET SUBLINGUAL ×2 (02:39→17:38)
[2019-11-28 06:33] LABS: Hematocrit 25.8 % (42.0-52.0); Hemoglobin 8.1 g/dL (14.0-18.0); Mean Corpuscular HGB Conc 31.4 g/dl (32-36); Mean Corpuscular Hemoglobin 29.6 pg (26-34); Mean Corpuscular Volume 94.2 fl (80-100); Mean Platelet Volume 9.9 fl (7.4-10.4); Platelet Count Result 125 k/mm3 (150-375); Red Blood Count 2.74 M/mm3 (4.6-6.20); Red Cell Distribution Width 15.5 % (11.5-14.5); White Blood Count 5.4 K/mm3 (4.5-10.0)
[2019-11-28 06:55] LABS: Blood Urea Nitrogen 14 mg/dL (9-20); Calcium 8.3 mg/dL (8.4-10.2); Carbon Dioxide 29 mmol/L (22-30); Chloride 98 mmol/L (98-107); Estimated CRCL calculation 50 ml/min; Estimated Glomerular Filt Rate 46; Glucose 108 mg/dL (75-110); Potassium 4.4 mmol/L (3.4-5.0); Sodium 134 mmol/L (137-145)
[2019-11-28 08:26] LABS: Glucose Point of Care 100 (65-105)
--- NOTE | 2019-11-28 09:17 | PM.IMPN ---
Progress Note: A&P Assessment and Plan (1) Pneumonia: Qualifiers: Laterality: left Lung location: unspecified part of lung Pneumonia type: due to unspecified organism Qualified Code(s): J18.9 - Pneumonia, unspecified organism Code(s): J18.9 - Pneumonia, unspecified organism Status: Acute Assessment and Plan: The patients oxygen saturation dropped 11/25/2019 and he was placed on 3 L of oxygen. Chest x-ray showed that the patient has bilateral pneumonia. Patient does report a slight productive cough and he was slightly short of breath sitting in bed earlier. He does not have any leukocytosis but his neutrophil count has elevated. His vital signs has otherwise been stable, afebrile, stable blood pressure, no tachycardia, 94% oxygen on room air and normal respiratory rate. Continue on oral Levaquin for 5 more days for for his pneumonia. Patient is feeling well today and his neutrophil count on his differential improved after switching antibiotics. He denies any new complaints or issues at this time he is stable for discharge from medical standpoint. (2) Acute anemia: Code(s): D64.9 - Anemia, unspecified Status: Acute Assessment and Plan: Patient's H&H after cystoscopy procedure came back with acute anemia with a hemoglobin of 6.4, hematocrit 21.2%. Acute blood loss most likely from procedure along with hematuria over the last week. Dr. Monteiro ordered for 2 units to be transfused 11/24/2019. H&H this morning was 8.1/25.8%. Stable. He does have slight red tinge to his Koo bag, but otherwise no acute signs of bleeding Will have him check a CBC in 1 week and follow with primary care provider. (3) Hematuria: Qualifiers: Hematuria type: unspecified type Qualified Code(s): R31.9 - Hematuria, unspecified Code(s): R31.9 - Hematuria, unspecified Status: Acute Assessment and Plan: Koo catheter is in place since being discharged on 11/19/2019. He does report some hematuria since being discharged at home. On 11/23/2019 Dr. Monteiro performed cystoscopy with clot evacuation, trans urethral resection of bladder tumor with fulguration. CBI is running on low. Continue Urology recommendations. (4) Atrial fibrillation: Qualifiers: Atrial fibrillation type: unspecified Qualified Code(s): I48.91 - Unspecified atrial fibrillation Code(s): I48.91 - Unspecified atrial fibrillation Status: Chronic Assessment and Plan: Patient is in chronic atrial fibrillation and is rate controlled at this time. Resume Xarelto once Urology has completed the procedures necessary for the patient's hematuria. Urology would like him to restart his Xarelto on 12/06/2019 as an outpatient. (5) Bladder cancer: Qualifiers: Bladder location: unspecified site Qualified Code(s): C67.9 - Malignant neoplasm of bladder, unspecified Code(s): C67.9 - Malignant neoplasm of bladder, unspecified Status: Chronic Assessment and Plan: Continue Heme/Onc recommendations for urothelial carcinoma. Will have him follow-up with Dr. Renner upon discharge. (6) ERIC (obstructive sleep apnea): Code(s): G47.33 - Obstructive sleep apnea (adult) (pediatric) Status: Chronic Assessment and Plan: Continue CPAP. (7) CKD (chronic kidney disease): Qualifiers: Chronic kidney disease stage: stage 3 (moderate) Qualified Code(s): N18.3 - Chronic kidney disease, stage 3 (moderate) Code(s): N18.9 - Chronic kidney disease, unspecified Status: Chronic Assessment and Plan: Creatinine normal range between 1-1.5. This mor
--- NOTE | 2019-11-28 10:01 | WPDUROPN2 ---
Progress Note: A&P Assessment and Plan (1) Hematuria: Qualifiers: Hematuria type: unspecified type Qualified Code(s): R31.9 - Hematuria, unspecified Code(s): R31.9 - Hematuria, unspecified Status: Acute Assessment and Plan: - Pathology results are negative for bladder cancer, showing severe cystitis. - will turn off CBI, reassess in am. consider discharge home with Koo - Will continue to monitor. Subjective Subjective Date/Time Seen: 11/28/19 10:01 - no overnight events Exam Const: General: no acute distress Eyes: General: appearance normal, both eyes and all related structures : Male General Exam: Yes normal external exam Urinary Catheter: Urinary Catheter: patent and draining and urine red (on very slow CBI) Extrem: General: normal to inspection Objective Data Vital Signs Vital Signs: Vital Signs - 24 hr 11/27/19 10:39 11/27/19 14:00 11/27/19 21:18 Temperature 36.6 C Pulse Rate 88 89 108 H Respiratory Rate 18 15 Blood Pressure 125/67 Pulse Oximetry 100 94 11/27/19 21:43 11/27/19 22:00 11/28/19 02:00 Temperature 36.2 C L 36.3 C L Pulse Rate 70 72 98 Respiratory Rate 20 18 Blood Pressure 108/68 104/62 Pulse Oximetry 97 92 11/28/19 06:00 11/28/19 09:00 Temperature 36.2 C L 36.6 C Pulse Rate 100 96 Respiratory Rate 18 18 Blood Pressure 99/60 L 106/65 Pulse Oximetry 92 94 Intake/Output Intake/Output: Intake & Output 11/25/19 11/26/19 11/27/19 11/28/19 23:59 23:59 23:59 23:59 Intake Total 2980 1690 970 470 Output Total 3600 3700 2960 1170 Balance -620 -2009 -1989 -700 Meds/Results Medications: Active Medications Generic Name Dose Route Start Last Admin Trade Name Freq PRN Reason Stop Dose Admin Acetaminophen 650 mg 11/23/19 12:09 Tylenol Tablet PO Q6H PRN Pain, Mild Hydrocodone Bitart/Acetaminophen 1 tab 11/23/19 12:09 11/27/19 18:05 [place] 5-325 Mg PO 1 tab Q8H PRN Administration MEDERATE Pain RATED 4-6 Al Hydrox/Mg Hydrox/Simethicone 5 ml 11/23/19 12:09 Mylanta PO TID PRN Indigestion Albuterol 2.5 mg 11/23/19 12:09 11/25/19 06:29 Albuterol Sulf Neb 2.5mg/0.5ml INHALATION 2.5 mg QIDRT PRN Administration Shortness Of Breath Amitriptyline HCl 50 mg 11/23/19 21:00 11/27/19 21:43 Elavil PO 50 mg HS TEREZA Administration Atorvastatin Calcium 20 mg 11/23/19 21:00 11/27/19 21:43 Lipitor PO 20 mg HS TEREZA Administration Benzonatate 100 mg 11/23/19 12:09 Tessalon Perles PO TID PRN Cough Bisacodyl 10 mg 11/24/19 10:02 Dulcolax Suppository RECTAL Q24H PRN Constipation Budesonide/Formoterol Fumarate 2 puff 11/23/19 20:00 11/28/19 08:27 Symbicort 80-4.5 Mcg (*Sp) Inhaler INHALATION 2 puff Q12HRT TEREZA Administration Buspirone HCl 5 mg 11/23/19 13:00 11/27/19 18:05 Buspar PO 5 mg TID TEREZA Administration Carvedilol 25 mg 11/23/19 21:00 11/27/19 21:43 Coreg PO 25 mg Q12HR TEREZA Administration Cyclobenzaprine HCl 10 mg 11/23/19 12:09 11/24/19 22:41 Flexeril PO 10 mg TID PRN Administration Spasms Dextrose 12.5 gm 11/24/19 00:52 Dextrose 50% Syringe IV PUSH PRN PRN Hypoglycemia Protocol Docusate Sodium 100 mg 11/23/19 17:00 11/27/19 18:08 Colace Capsule PO 100 mg BID TEREZA Administration Duloxetine HCl 60 mg 11/24/19 09:00 11/27/19 10:40 Cymbalta PO 60 mg DAILY TEREZA Administration Fentanyl 25 mcg 11/23/19 22:00 11/26/19 22:34 Duragesic 25 Mcg Patch TRANSDERM 25 mcg Q72H TEREZA Administration Fentanyl Citrate 25 mcg 11/23/19 06:56 11/23/19 10:46 Sublimaze IV PUSH 25 mcg Q2M PRN Administration Pain Ferrous Sulfate 324 mg 11/24/19 09:00 11/26/19 10:15 Ferrous Sulfate PO 324 mg Q48H TEREZA Administration Furosemide 40 mg 11/24/19 09:00 11/27/19 10:40 Lasix Tablet PO 40 mg DAILY TEREZA Adm
[2019-11-28] MEDS: DOCUSATE SODIUM 100 MG CAPSULE PO ×2 (10:30→17:38)
[2019-11-28] MEDS: busPIRone HCL 5 MG TABLET PO ×3 (10:31→17:27)
[2019-11-28] MEDS: carvediloL 25 MG TABLET PO ×2 (10:31→20:45)
[2019-11-28] MEDS: FERROUS SULFATE 324 MG TABLET PO (10:32)
[2019-11-28] MEDS: DULoxetine HCL 60 MG CAPSULE.DR PO (10:32)
[2019-11-28] MEDS: FUROSEMIDE 40 MG TABLET PO (10:33)
[2019-11-28] MEDS: PANTOPRAZOLE 40 MG TABLET PO ×2 (10:33→20:46)
[2019-11-28] MEDS: ISOSORBIDE MONONITRATE 60 MG TAB.ER.24H 120 MG PO (10:33)
[2019-11-28] MEDS: LORATADINE 10 MG TABLET PO (10:33)
[2019-11-28] MEDS: SACCHAROMYCES BOULARDII 250 MG CAPSULE PO ×2 (10:34→17:26)
[2019-11-28] MEDS: RANOLAZINE 500 MG TAB.ER.12H PO ×2 (10:34→20:50)
[2019-11-28 12:25] LABS: Glucose Point of Care 112 (65-105)
[2019-11-28] MEDS: polyethylene glycoL 3350 17 GM POWD.PACK PO (14:29)
[2019-11-28 18:04] LABS: Glucose Point of Care 113 (65-105)
[2019-11-28] MEDS: MORPHINE SULFATE 2 MG/ML INJ IV PUSH (19:57)
[2019-11-28] MEDS: AMITRIPTYLINE HCL 25 MG TABLET 50 MG PO (20:44)
[2019-11-28] MEDS: ATORVASTATIN 20 MG TABLET PO (20:45)
[2019-11-28] MEDS: PROCHLORPERAZINE MALEATE 5 MG TABLET 10 MG PO (20:46)
[2019-11-28] MEDS: BENZONATATE 100 MG CAPSULE PO (20:48)
[2019-11-28] MEDS: PRAMIPEXOLE 0.5 MG TABLET PO (20:48)
[2019-11-28] MEDS: OXYBUTYNIN CHLORIDE 5 MG TABLET PO (20:49)
[2019-11-28] MEDS: PRAZOSIN HCL 5 MG CAPSULE PO (20:50)
[2019-11-28 23:32] LABS: Glucose Point of Care 142 (65-105)
[2019-11-29 06:00] VITALS: BP 106/44; PULSE 83; RESP 18; TEMP 36.4; O2SAT 96
[2019-11-29 06:22] LABS: Hematocrit 25.8 % (42.0-52.0); Hemoglobin 8.1 g/dL (14.0-18.0); Mean Corpuscular HGB Conc 31.4 g/dl (32-36); Mean Corpuscular Hemoglobin 29.6 pg (26-34); Mean Corpuscular Volume 94.2 fl (80-100); Mean Platelet Volume 10.5 fl (7.4-10.4); Platelet Count Result 122 k/mm3 (150-375); Red Blood Count 2.74 M/mm3 (4.6-6.20); Red Cell Distribution Width 15.6 % (11.5-14.5)
[2019-11-29 06:39] LABS: Blood Urea Nitrogen 15 mg/dL (9-20); Calcium 8.4 mg/dL (8.4-10.2); Carbon Dioxide 27 mmol/L (22-30); Chloride 100 mmol/L (98-107); Estimated CRCL calculation 50 ml/min; Estimated Glomerular Filt Rate 46; Glucose 105 mg/dL (75-110); Potassium 4.2 mmol/L (3.4-5.0); Sodium 134 mmol/L (137-145)
[2019-11-29] MEDS: HYOSCYAMINE SULFATE 0.125 MG TABLET SUBLINGUAL (08:25)
[2019-11-29] MEDS: FUROSEMIDE 40 MG TABLET PO (08:28)
[2019-11-29] MEDS: SACCHAROMYCES BOULARDII 250 MG CAPSULE PO ×2 (08:28→17:21)
[2019-11-29] MEDS: carvediloL 25 MG TABLET PO ×2 (08:30→21:14)
[2019-11-29] MEDS: DOCUSATE SODIUM 100 MG CAPSULE PO ×2 (08:30→17:18)
[2019-11-29] MEDS: ISOSORBIDE MONONITRATE 60 MG TAB.ER.24H 120 MG PO (08:30)
[2019-11-29] MEDS: busPIRone HCL 5 MG TABLET PO ×3 (08:30→17:18)
[2019-11-29] MEDS: PANTOPRAZOLE 40 MG TABLET PO ×2 (08:30→21:14)
[2019-11-29] MEDS: RANOLAZINE 500 MG TAB.ER.12H PO ×2 (08:30→21:14)
[2019-11-29] MEDS: LORATADINE 10 MG TABLET PO (08:30)
[2019-11-29] MEDS: DULoxetine HCL 60 MG CAPSULE.DR PO (08:31)
[2019-11-29] MEDS: polyethylene glycoL 3350 17 GM POWD.PACK PO (08:31)
[2019-11-29 12:51] LABS: Glucose Point of Care 119 (65-105)
[2019-11-29] MEDS: MORPHINE SULFATE 2 MG/ML INJ IV PUSH ×3 (13:25→21:26)
--- NOTE | 2019-11-29 15:10 | PM.IMPN ---
Progress Note: A&P Assessment and Plan (1) Pneumonia: Qualifiers: Laterality: left Lung location: unspecified part of lung Pneumonia type: due to unspecified organism Qualified Code(s): J18.9 - Pneumonia, unspecified organism Code(s): J18.9 - Pneumonia, unspecified organism Status: Acute Assessment and Plan: The patients oxygen saturation dropped 11/25/2019 and he was placed on 3 L of oxygen. Chest x-ray showed that the patient has bilateral pneumonia. Patient does report a slight productive cough and he was slightly short of breath sitting in bed earlier. He does not have any leukocytosis but his neutrophil count has elevated. His vital signs has otherwise been stable, afebrile, stable blood pressure, no tachycardia, 96% oxygen on room air and normal respiratory rate. Continue on oral Levaquin for 3 more days for for his pneumonia. Patient is feeling well today and his neutrophil count on his differential improved after switching antibiotics. He denies any new complaints or issues at this time he is stable for discharge from medical standpoint. (2) Acute anemia: Code(s): D64.9 - Anemia, unspecified Status: Acute Assessment and Plan: Patient's H&H after cystoscopy procedure came back with acute anemia with a hemoglobin of 6.4, hematocrit 21.2%. Acute blood loss most likely from procedure along with hematuria over the last week. Dr. Monteiro ordered for 2 units to be transfused 11/24/2019. H&H this morning was 8.1/25.8%. Stable. He does have slight red tinge to his Babcock bag, but otherwise no acute signs of bleeding Will have him check a CBC in 1 week and follow with primary care provider. (3) Hematuria: Qualifiers: Hematuria type: unspecified type Qualified Code(s): R31.9 - Hematuria, unspecified Code(s): R31.9 - Hematuria, unspecified Status: Acute Assessment and Plan: Babcock catheter is in place since being discharged on 11/19/2019. He does report some hematuria since being discharged at home. On 11/23/2019 Dr. Monteiro performed cystoscopy with clot evacuation, trans urethral resection of bladder tumor with fulguration. CBI is off at this time, with slight redness to babcock bag at this time. Continue Urology recommendations. (4) Atrial fibrillation: Qualifiers: Atrial fibrillation type: unspecified Qualified Code(s): I48.91 - Unspecified atrial fibrillation Code(s): I48.91 - Unspecified atrial fibrillation Status: Chronic Assessment and Plan: Patient is in chronic atrial fibrillation and is rate controlled at this time. Resume Xarelto once Urology has completed the procedures necessary for the patient's hematuria. Urology would like him to restart his Xarelto on 12/06/2019 as an outpatient. (5) Bladder cancer: Qualifiers: Bladder location: unspecified site Qualified Code(s): C67.9 - Malignant neoplasm of bladder, unspecified Code(s): C67.9 - Malignant neoplasm of bladder, unspecified Status: Chronic Assessment and Plan: Continue Heme/Onc recommendations for urothelial carcinoma. Will have him follow-up with Dr. Renner upon discharge. (6) ERIC (obstructive sleep apnea): Code(s): G47.33 - Obstructive sleep apnea (adult) (pediatric) Status: Chronic Assessment and Plan: Continue CPAP. (7) CKD (chronic kidney disease): Qualifiers: Chronic kidney disease stage: stage 3 (moderate) Qualified Code(s): N18.3 - Chronic kidney disease, stage 3 (moderate) Code(s): N18.9 - Chronic kidney disease, unspecified Status: Chronic Assessment and Plan:
[2019-11-29 16:00] VITALS: BP 98/52; PULSE 92; RESP 20; TEMP 36.4; O2SAT 95
--- NOTE | 2019-11-29 16:39 | WPDUROPN2 ---
Progress Note: A&P Assessment and Plan (1) Hematuria: Qualifiers: Hematuria type: unspecified type Qualified Code(s): R31.9 - Hematuria, unspecified Code(s): R31.9 - Hematuria, unspecified Status: Acute Assessment and Plan: Patient will stay overnight, Dr. Monteiro to assess tomorrow for discharge home with babcock. Urine remains too bloody to discharge today. Will restart CBI tonight and wean to off around 0400. Change Roosevelt to q 6 instead of q 8 for abdominal pain. Subjective Subjective Date/Time Seen: 11/29/19 16:39 Post Op day: 6 (Clot evacuation with mild resection of irregular bladder tissue) Urine remains damon red off CBI. He is c/o adominal pain, but has had Morphine and Roosevelt. His norco is ordered q 8, will change to q 6. Review of Systems Cardiovascular: Cardiovascular: Denies chest pain Respiratory: Respiratory: Reports no additional respiratory complaints Gastrointestinal: Gastrointestinal: Reports abdominal pain, Denies nausea and Denies vomiting Genitourinary: Genitourinary: Reports hematuria Exam Resp: Effort & Inspection: normal respiratory effort Cardio: Rate: regular rate GI: GI Palp: Yes Tenderness to palpation present (GI) (midline near hernia) Urinary Catheter: Urinary Catheter: patent and draining, urine clear and urine red Extrem: General: no edema Objective Data Vital Signs Vital Signs: Vital Signs - 24 hr 11/28/19 20:45 11/28/19 22:00 11/29/19 06:00 Temperature 97.3 F L 97.6 F Pulse Rate 99 86 83 Respiratory Rate 16 18 Blood Pressure 108/45 L 106/44 L Pulse Oximetry 94 96 Intake/Output Intake/Output: Intake & Output 11/26/19 11/27/19 11/28/19 11/29/19 23:59 23:59 23:59 23:59 Intake Total 1690 111 515 4371 Output Total 3700 2960 1744 8060 Balance -2009 -795 -890 Meds/Results Medications: Active Medications Generic Name Dose Route Start Last Admin Trade Name Freq PRN Reason Stop Dose Admin Acetaminophen 650 mg 11/23/19 12:09 Tylenol Tablet PO Q6H PRN Pain, Mild Hydrocodone Bitart/Acetaminophen 1 tab 11/23/19 12:09 11/29/19 13:13 [place] 5-325 Mg PO 1 tab Q8H PRN Administration MEDERATE Pain RATED 4-6 Al Hydrox/Mg Hydrox/Simethicone 5 ml 11/23/19 12:09 Mylanta PO TID PRN Indigestion Albuterol 2.5 mg 11/23/19 12:09 11/25/19 06:29 Albuterol Sulf Neb 2.5mg/0.5ml INHALATION 2.5 mg QIDRT PRN Administration Shortness Of Breath Amitriptyline HCl 50 mg 11/23/19 21:00 11/28/19 20:44 Elavil PO 50 mg HS TEREZA Administration Atorvastatin Calcium 20 mg 11/23/19 21:00 11/28/19 20:45 Lipitor PO 20 mg HS TEREZA Administration Benzonatate 100 mg 11/23/19 12:09 11/28/19 20:48 Tessalon Perles PO 100 mg TID PRN Administration Cough Bisacodyl 10 mg 11/24/19 10:02 Dulcolax Suppository RECTAL Q24H PRN Constipation Budesonide/Formoterol Fumarate 2 puff 11/23/19 20:00 11/29/19 08:24 Symbicort 80-4.5 Mcg (*Sp) Inhaler INHALATION 2 puff Q12HRT TEREZA Administration Buspirone HCl 5 mg 11/23/19 13:00 11/29/19 13:14 Buspar PO 5 mg TID TEREZA Administration Carvedilol 25 mg 11/23/19 21:00 11/29/19 08:30 Coreg PO 25 mg Q12HR TEREZA Administration Cyclobenzaprine HCl 10 mg 11/23/19 12:09 11/24/19 22:41 Flexeril PO 10 mg TID PRN Administration Spasms Dextrose 12.5 gm 11/24/19 00:52 Dextrose 50% Syringe IV PUSH PRN PRN Hypoglycemia Protocol Docusate Sodium 100 mg 11/23/19 17:00 11/29/19 08:30 Colace Capsule PO 100 mg BID TEREZA Administration Duloxetine HCl 60 mg 11/24/19 09:00 11/29/19 08:31 Cymbalta PO 60 mg DAILY TEREZA Administration Fentanyl 25 mcg 11/23/19 22:00 11/26/19 22:34 Duragesic 25 Mcg Patch TRANSDERM 25 mcg Q72H TEREZA Administration Fentanyl Citrate 25 mcg 11/23/19 06:56 11/23/19 10:46 Sublimaze IV PUSH 25 mcg
[2019-11-29 17:44] LABS: Glucose Point of Care 108 (65-105)
[2019-11-29 20:22] VITALS: PULSE 99; RESP 12; O2SAT 91
[2019-11-29 21:14] VITALS: PULSE 101
[2019-11-29] MEDS: PRAZOSIN HCL 5 MG CAPSULE PO (21:14)
[2019-11-29] MEDS: PRAMIPEXOLE 0.5 MG TABLET PO (21:14)
[2019-11-29] MEDS: ATORVASTATIN 20 MG TABLET PO (21:14)
[2019-11-29] MEDS: AMITRIPTYLINE HCL 25 MG TABLET 50 MG PO (21:14)
[2019-11-29 22:00] VITALS: BP 126/91; PULSE 100; RESP 18; TEMP 36.1; O2SAT 90
[2019-11-29] MEDS: FENTANYL 25 MCG/HR PATCH TRANSDERM (22:43)
[2019-11-29 23:07] LABS: Glucose Point of Care 159 (65-105)
[2019-11-30] VITALS: TEMP 36.4
[2019-11-30 00:39] VITALS: PULSE 101; RESP 17; O2SAT 93
[2019-11-30 06:00] VITALS: BP 130/86; PULSE 76; RESP 18; TEMP 36.3; O2SAT 95
[2019-11-30 06:29] LABS: Hematocrit 25.3 % (42.0-52.0); Hemoglobin 8.1 g/dL (14.0-18.0); Mean Corpuscular Hemoglobin 29.9 pg (26-34); Mean Corpuscular Volume 93.4 fl (80-100); Mean Platelet Volume 9.6 fl (7.4-10.4); Platelet Count Result 126 k/mm3 (150-375); Red Blood Count 2.71 M/mm3 (4.6-6.20); Red Cell Distribution Width 15.4 % (11.5-14.5); White Blood Count 6.6 K/mm3 (4.5-10.0)
--- NOTE | 2019-11-30 07:38 | WPDUROPN2 ---
Progress Note: A&P Assessment and Plan (1) Hematuria: Qualifiers: Hematuria type: gross Qualified Code(s): R31.0 - Gross hematuria Code(s): R31.9 - Hematuria, unspecified Status: Acute Assessment and Plan: Appears to be finally resolved. His urine is clear at this time off CBI. He can be discharged home from a urology standpoint with a Koo catheter. [facility] plan [facility] K[facility]. His biopsy came back negative for malignancy at this point time. Will simply plan on a cysto in about 3 months time. That will need to be done in the operative suite. Would recommend still holding Xarelto if possible until Koo is out and patient is voiding without difficulty. Subjective Subjective Date/Time Seen: 11/30/19 07:38 Principal diagnosis: No complaints at this time. Urine appears clear off CBI. Review of Systems Review of Systems: All systems reviewed & are unremarkable except as noted in HPI and below Exam Const: General: no acute distress Objective Data Vital Signs Vital Signs: Vital Signs - 24 hr 11/29/19 16:00 11/29/19 20:22 11/29/19 21:14 Temperature 36.4 C Pulse Rate 92 99 101 H Respiratory Rate 20 12 Blood Pressure 98/52 L Pulse Oximetry 95 91 11/29/19 22:00 11/30/19 00:00 11/30/19 00:39 Temperature 36.1 C L 36.4 C Pulse Rate 100 101 H Respiratory Rate 18 17 Blood Pressure 126/91 H Pulse Oximetry 90 93 11/30/19 06:00 Temperature 36.3 C L Pulse Rate 76 Respiratory Rate 18 Blood Pressure 130/86 Pulse Oximetry 95 Intake/Output Intake/Output: Intake & Output 11/27/19 11/28/19 11/29/19 11/30/19 23:59 23:59 23:59 23:59 Intake Total 980 365 6173 300 Output Total 2960 7250 4050 1100 [facility] -1990 -795 -920 -800 Meds/Results Medications: Active Medications Generic Name Dose Route Start Last Admin Trade Name Freq PRN Reason Stop Dose Admin Acetaminophen 650 mg 11/23/19 12:09 Tylenol Tablet PO Q6H PRN Pain, Mild Hydrocodone Bitart/Acetaminophen 1 tab 11/29/19 16:45 11/30/19 03:56 [place] 5-325 Mg PO 1 tab Q6-8H PRN Administration MEDERATE Pain RATED 4-6 Al Hydrox/Mg Hydrox/Simethicone 5 ml 11/23/19 12:09 Mylanta PO TID PRN Indigestion Albuterol 2.5 mg 11/23/19 12:09 11/25/19 06:29 Albuterol Sulf Neb 2.5mg/0.5ml INHALATION 2.5 mg QIDRT PRN Administration Shortness Of Breath Amitriptyline HCl 50 mg 11/23/19 21:00 11/29/19 21:14 Elavil PO 50 mg HS TEREZA Administration Atorvastatin Calcium 20 mg 11/23/19 21:00 11/29/19 21:14 Lipitor PO 20 mg HS TEREZA Administration Benzonatate 100 mg 11/23/19 12:09 11/28/19 20:48 Tessalon Perles PO 100 mg TID PRN Administration Cough Bisacodyl 10 mg 11/24/19 10:02 Dulcolax Suppository RECTAL Q24H PRN Constipation Budesonide/Formoterol Fumarate 2 puff 11/23/19 20:00 11/29/19 20:19 Symbicort 80-4.5 Mcg (*Sp) Inhaler INHALATION 2 puff Q12HRT TEREZA Administration Buspirone HCl 5 mg 11/23/19 13:00 11/29/19 17:18 Buspar PO 5 mg TID TEREZA Administration Carvedilol 25 mg 11/23/19 21:00 11/29/19 21:14 Coreg PO 25 mg Q12HR TEREZA Administration Cyclobenzaprine HCl 10 mg 11/23/19 12:09 11/24/19 22:41 Flexeril PO 10 mg TID PRN Administration Spasms Dextrose 12.5 gm 11/24/19 00:52 Dextrose 50% Syringe IV PUSH PRN PRN Hypoglycemia Protocol Docusate Sodium 100 mg 11/23/19 17:00 11/29/19 17:18 Colace Capsule PO 100 mg BID TEREZA Administration Duloxetine HCl 60 mg 11/24/19 09:00 11/29/19 08:31 Cymbalta PO 60 mg DAILY TEREZA Administration Fentanyl 25 mcg 11/23/19 22:00 11/29/19 22:43 Duragesic 25 Mcg Patch TRANSDERM 25 mcg Q72H TEREZA Administration Fentanyl Citrate 25 mcg 11/23/19 06:56 11/23/19 10:46 Sublimaze IV PUSH 25 mcg Q2M PRN Administra
[2019-11-30 08:00] VITALS: PULSE 114; RESP 22; O2SAT 95
[2019-11-30] MEDS: busPIRone HCL 5 MG TABLET PO (09:20)
[2019-11-30] MEDS: ISOSORBIDE MONONITRATE 60 MG TAB.ER.24H 120 MG PO (09:20)
[2019-11-30] MEDS: carvediloL 25 MG TABLET PO (09:20)
[2019-11-30] MEDS: SACCHAROMYCES BOULARDII 250 MG CAPSULE PO (09:21)
[2019-11-30] MEDS: FUROSEMIDE 40 MG TABLET PO (09:21)
[2019-11-30] MEDS: FERROUS SULFATE 324 MG TABLET PO (09:22)
[2019-11-30] MEDS: RANOLAZINE 500 MG TAB.ER.12H PO (09:22)
[2019-11-30] MEDS: PANTOPRAZOLE 40 MG TABLET PO (09:22)
[2019-11-30] MEDS: LORATADINE 10 MG TABLET PO (09:23)
[2019-11-30] MEDS: DULoxetine HCL 60 MG CAPSULE.DR PO (09:24)
[2019-11-30 09:34] LABS: Glucose Point of Care 117 (65-105)
--- NOTE | 2019-11-30 11:14 | PM.IMPN ---
Progress Note: A&P Assessment and Plan (1) Pneumonia: Qualifiers: Laterality: left Lung location: unspecified part of lung Pneumonia type: due to unspecified organism Qualified Code(s): J18.9 - Pneumonia, unspecified organism Code(s): J18.9 - Pneumonia, unspecified organism Status: Acute Assessment and Plan: Chest x-ray showed that the patient has bilateral pneumonia in setting of requiring 3L O2 earlier in stay. Currently breathing on RA comfortably. No leukocytosis or fever. VSS. Levaquin since 11/25. Not reporting any respiratory symptoms Will continue with Levaquin through 12/01. F/u with PCP Okay for discharge from Medical standpoint (2) Acute anemia: Code(s): D64.9 - Anemia, unspecified Status: Acute Assessment and Plan: H&H stable. 2 u pRBCs on 11/23 per Urology Will have him check a CBC in 1 week and follow with primary care provider. Xarelto to be held through 12/05 per Urology recommendations (3) Hematuria: Qualifiers: Hematuria type: unspecified type Qualified Code(s): R31.9 - Hematuria, unspecified Code(s): R31.9 - Hematuria, unspecified Status: Acute Assessment and Plan: Koo catheter is in place since being discharged on 11/19/2019. He reports some hematuria since being discharged at home. On 11/23/2019 Dr. Monteiro performed cystoscopy with clot evacuation, trans urethral resection of bladder tumor with fulguration. Koo still shows pink colored urine F/u with Urology per their instructions Xarelto held through 12/05 when Koo is to be removed at Further care per Urology recommendations (4) Atrial fibrillation: Qualifiers: Atrial fibrillation type: unspecified Qualified Code(s): I48.91 - Unspecified atrial fibrillation Code(s): I48.91 - Unspecified atrial fibrillation Status: Chronic Assessment and Plan: Patient is in chronic atrial fibrillation and is rate controlled at this time. Resume Xarelto once Urology has completed the procedures necessary for the patient's hematuria. Urology would like him to restart his Xarelto on 12/06/2019 as an outpatient. (5) Bladder cancer: Qualifiers: Bladder location: unspecified site Qualified Code(s): C67.9 - Malignant neoplasm of bladder, unspecified Code(s): C67.9 - Malignant neoplasm of bladder, unspecified Status: Chronic Assessment and Plan: Continue Heme/Onc recommendations for urothelial carcinoma. Will have him follow-up with Dr. Renner upon discharge. (6) ERIC (obstructive sleep apnea): Code(s): G47.33 - Obstructive sleep apnea (adult) (pediatric) Status: Chronic Assessment and Plan: Continue CPAP. (7) CKD (chronic kidney disease): Qualifiers: Chronic kidney disease stage: stage 3 (moderate) Qualified Code(s): N18.3 - Chronic kidney disease, stage 3 (moderate) Code(s): N18.9 - Chronic kidney disease, unspecified Status: Chronic Assessment and Plan: Creatinine normal range between 1-1.5. This morning patient creatinine was 1.5. Stable. Appears euvolemic at this time. (8) Hypertension: Qualifiers: Hypertension type: unspecified Qualified Code(s): I10 - Essential (primary) hypertension Code(s): I10 - Essential (primary) hypertension Status: Chronic Assessment and Plan: Bp 130s sys this morning. Continue monitoring patient's blood pressure. Continue home medications (9) Diabetes: Qualifiers: Diabetes mellitus type: type
[2019-11-30 14:14] LABS: Glucose Point of Care 107 (65-105)
[2019-11-30 15:43] VITALS: BP 104/59; PULSE 114; RESP 22; TEMP 36.4; O2SAT 95
--- NOTE | 2019-12-28 06:28 | DS_ITS ---
DATE OF DISCHARGE: PREOPERATIVE DIAGNOSIS: Bladder tumor. POSTOPERATIVE DIAGNOSIS: Bladder tumor with significant clotting. HOSPITAL COURSE: The patient underwent cystoscopy with clot evacuation on November 23, [address] Aristeo Monteiro. The patient tolerated the procedure well, was then transferred to recovery in stable condition and to the floor for further observation. The patient remained on CBI due to ongoing gross hematuria for several days. He was then okay to be discharged on November 29 and was sent back to the halfway with diet as tolerated, activity no straining. The patient was to call office for followup with Dr. Monteiro. He was to resume all previous medications including new medications of Levaquin, hydrocodone, acetaminophen, and Florastor. D I MT: Earl
== END 2019-11-30 18:30 | DRG 668 ==
LOC: ANH3MEDSUR 19:00
PROVIDERS: Family Medicine; Physician Assistant; Admitting Provider Urology; PCP Internal Medicine; Visit Provider Urology
PROC: 0TJB8ZZ Inspection of Bladder, Via Natural or Artificial Opening Endoscopic (ICD-10-PCS; CPT 52000; principal; 2019-11-23 07:30)
PROC: 0TBB8ZZ Excision of Bladder, Via Natural or Artificial Opening Endoscopic (ICD-10-PCS; 2019-11-23 07:30)
DX: N30.01 Acute cystitis with hematuria (principal); J18.9 Pneumonia, unspecified organism; I13.0 Hypertensive heart and chronic kidney disease with heart failure and stage 1 through stage 4 chronic kidney disease, or unspecified chronic kidney disease; I48.20 Chronic atrial fibrillation, unspecified; I50.32 Chronic diastolic (congestive) heart failure; D62 Acute posthemorrhagic anemia; J96.11 Chronic respiratory failure with hypoxia; N18.3 Chronic kidney disease, stage 3 (moderate); Z11.59 Encounter for screening for other viral diseases; E11.22 Type 2 diabetes mellitus with diabetic chronic kidney disease; J44.9 Chronic obstructive pulmonary disease, unspecified; E78.5 Hyperlipidemia, unspecified; K21.9 Gastro-esophageal reflux disease without esophagitis; G47.33 Obstructive sleep apnea (adult) (pediatric); E11.42 Type 2 diabetes mellitus with diabetic polyneuropathy; E11.51 Type 2 diabetes mellitus with diabetic peripheral angiopathy without gangrene; F41.9 Anxiety disorder, unspecified; M19.90 Unspecified osteoarthritis, unspecified site; F31.9 Bipolar disorder, unspecified; F43.10 Post-traumatic stress disorder, unspecified; K74.60 Unspecified cirrhosis of liver; H40.9 Unspecified glaucoma; F17.210 Nicotine dependence, cigarettes, uncomplicated; K42.9 Umbilical hernia without obstruction or gangrene; Z66 Do not resuscitate; Z96.653 Presence of artificial knee joint, bilateral; Z79.82 Long term (current) use of aspirin; Z86.19 Personal history of other infectious and parasitic diseases; Z85.028 Personal history of other malignant neoplasm of stomach; Z86.718 Personal history of other venous thrombosis and embolism; I25.2 Old myocardial infarction; Z85.51 Personal history of malignant neoplasm of bladder; Z85.528 Personal history of other malignant neoplasm of kidney; Z86.711 Personal history of pulmonary embolism; Z87.11 Personal history of peptic ulcer disease; Z86.73 Personal history of transient ischemic attack (TIA), and cerebral infarction without residual deficits; Z90.49 Acquired absence of other specified parts of digestive tract; Z90.5 Acquired absence of kidney; Z95.1 Presence of aortocoronary bypass graft; Z95.5 Presence of coronary angioplasty implant and graft; Z79.01 Long term (current) use of anticoagulants
CPT/HCPCS: 36415; 36430; 71046; 80048; 85014; 85018; 85025; 85027; 86850; 86900; 86901; 86923; 87635; 88305; 88342; 94640; 97110; 97116; 97162; 97165; 97530; 97535; A9270; C9803; J0690; J2270; J2370; J2405; J2704; J3010; J7050; J7120; J7121; P9016; U0003